=== PATIENT | male | born 1940 | race Caucasian/White ===

== ENCOUNTER 2023-03-21 19:29 | Observation (INO) | payer MEDICARE, SELFPAY ==
--- NOTE | 2023-03-21 19:46 | PC.NURSE ---
Patient arrived to floor via stretcher with ems at 19.45.
[2023-03-21 20:00] VITALS: BP 141/67; PULSE 100; PULSE 104; PULSE 107; RESP 18; TEMP 37; O2SAT 98; O2SAT 99
--- NOTE | 2023-03-21 20:38 | XR_ITS ---
PROCEDURE INFORMATION: Exam: XR Right Toe(s) Exam date and time: 03/21/2023 9:11 PM Age: 83 years old Clinical indication: Pain; Toes; Right; Additional info: Fall with injury TECHNIQUE: Imaging protocol: Radiologic exam of the right toes. Views: Minimum 2 views. COMPARISON: No relevant prior studies available. FINDINGS: Bones/joints: Avulsion fracture of the base of the 1st proximal phalanx. Soft tissues: Normal. IMPRESSION: Avulsion fracture of the base of the 1st proximal phalanx. No additional fracture or dislocation
--- NOTE | 2023-03-21 20:39 | P.HP_ITS ---
History of Present Illness *Admission Date: 03/21/23 *Reason for visit:: Afib new onset *History of present illness: This is a 83yo M with PMHx of IDDM, CHF, CAD s/p CABG, not on blood thinner, HLD, referred from [facility] for evalution of new onset afib with RVR and elevated troponin. Patient alert and oriented, reported he fell at home last night about 10p and was not able to get up until family found him down today. Daughter, at bedside also confirmed history. EMS arrived and took patient to the nearest ER. On route patient was found to be on afib with RVR, patient and family denied previous Hx of that, and his is not on any anticoagulant other than aspirin. Patient also reported generalized weakness, denied LOC, and head trauma. On arrival ER , detected elevated troponin, CK and confirmed afib rhythm. Patient was referred to us for cardiology evaluation. Admitted. [facility] Disclaimer: The information contained in this section may have been updated after the patient was seen, as this information can be updated by other users. Medical History (Updated 03/21/23 @ 21:08 by Ramon Brasher APRN) Diabetes mellitus Hypertension Stroke Surgical History (Updated 03/21/23 @ 21:02 by Ramon Brasher APRN) Hx of CABG Family History (Updated 03/21/23 @ 20:33 by Jacquie Griggs RN) Other Diabetes Heart disease Social History (Updated 03/21/23 @ 20:28 by Jacquie Griggs RN) Smoking Status: Never smoker alcohol intake: never current occupational status: disabled Travel in the last 8 weeks: None Review of Systems Review of Systems Review of systems:: pertinent systems reviewed and negative unless documented below Meds Home Medications and Allergies Home Medications Medication Instructions Recorded Confirmed Type losartan 50 mg-hydrochlorothiazide 12.5 tab PO DAILY 03/21/23 03/21/23 History 12.5 mg tablet metformin 1,000 mg tablet 1,000 mg PO BID 03/21/23 03/21/23 History omeprazole 20 mg capsule,delayed 20 mg PO DAILY 03/21/23 03/21/23 History release potassium chloride 20 mEq 20 meq PO DAILY 03/21/23 03/21/23 History tablet,extended release(part/cryst) simvastatin 40 mg tablet 40 mg PO DAILY 03/21/23 03/21/23 History New Prescriptions to Start Prescriptions: Allergies Allergy/AdvReac Type Severity Reaction Status Date / Time codeine Allergy Verified 03/21/23 20:34 Exam Constitutional Constitutional: mild distress and cooperative *Routine HEENT Exam Head: Present normocephalic and atraumatic Eye: Present EOMI, PERRL and normal accommodation ENT: Present mucous membranes moist *Routine Neck Exam Neck: Present supple, full ROM and trachea midline *Routine Respiratory Exam Respiratory: Present normal respiratory effort, able to speak in complete sentences and symmetric chest movement *Routine Cardiovascular Exam Cardiovascular: Present Normal S1, Normal S2, tachycardia and irregularly irregular *Routine Abdominal Exam Abdominal: Present soft and normoactive bowel sounds; Absent organomegaly *Routine Rectal Exam Rectal:: deferred *Routine Genitalia Exam Genitalia:: deferred *Routine Extremities Exam Extremities: Present edema, full ROM and pulses intact; Absent cyanosis or clubbing *Routine Skin Exam Skin: Present erythema, dry, warm and wounds *Routine Neurological Exam Neurological: Present alert, oriented X3, normal reflexes, moving all extremities and normal speech Routine Psychiatric Exam Psychiatric: Present normal thought process and cooperative H&P: Result Imaging and Cardiology EKG: Status: image reviewed by me and Preliminary report Assessment and Plan *Assessment and plan (1) New onset a-fib: Status: Acute Category: Medical Code(s): I48.91 - Unspecified atrial fibrillation (2) Rhabdomyolysis: Status: Acute Qualifiers: Rhabdomyolysis type: traumatic Encounter type: initial encounter Qualified Code(s): T79.6XXA - Traumatic ischemia of muscle, initial encounter Category: Medical Code(s): M62.82 - Rhabdomyolysis (3) Elevated troponin: Status: Acute Category: Medical Code(s): R79.89 - Other specified abnormal findings of blood chemistry (4) Acute kidney injury: Status: Acute Category: Medical Code(s): N17.9 - Acute kidney failure, unspecified (5) Elevated brain natriuretic peptide (BNP) level: Status: Acute Category: Medical Code(s): R79.89 - Other specified abnormal findings of blood chemistry (6) Fall at home: Status: Acute Qualifiers: Encounter type: initial encounter Qualified Code(s): W19.XXXA - Unspecified fall, initial encounter; Y92.009 - Unspecified place in unspecified non-institutional (private) residence as the place of occurrence of the external cause Category: Medical Code(s): W19.XXXA - Unspecified fall, initial encounter; Y92.009 - Unspecified place in unspecified non-institutional (private) residence as the place of occurrence of the external cause (7) Hx of CABG: Status: Acute Category: Surgical Code(s): Z95.1 - Presence of aortocoronary bypass graft (8) Hypertension: Status: Acute Qualifiers: Hypertension type: unspecified Qualified Code(s): I10 - Essential (primary) hypertension Category: Medical Code(s): I10 - Essential (primary) hypertension (9) Diabetes mellitus: Status: Acute Qualifiers: Diabetes mellitus type: type 2 Diabetes mellitus public service officer insulin use: with retirement use Diabetes mellitus complication status: with other specified complication Qualified Code(s): E11.69 - Type 2 diabetes mellitus with other specified complication; Z79.4 - group home (current) use of insulin Category: Medical Code(s): E11.9 - Type 2 diabetes mellitus without complications Plan 83yo M with PMHx of IDDM, CHF, CAD s/p CABG, not on blood thinner, HLD, referred from [facility] for evalution of new onset afib with RVR and elevated troponin. Patient alert and oriented, reported he fell at home last night about 10p and was not able to get up until family found him down today. Records reviewed from referring facility. abnormal labs are troponin, elevated creatinine, CK, BNP. CT of the head was obtained and does not showed acute intracraneal process, per pier report. After discussion made with Referring attending and cardiology, we were agreed for acceptance. Plans as follow: - New onset Afib: Admit patient for step down on continuos cardiac monitoring Cardiology consult metropolol 5mg IV PRN for HR greater than 145 Repeat: troponin, lactic acid, CMP/ CBC obtain lipid profile Pt/INR EKG reviewed -Rhabdo, secondary to fall and being lying down for a long period of time: Repeat CK and continue monitoring daily NS @75ml gently infusion. Watch for fluid overload - Elevated troponin to rule out ACS: liklely leaking troponin secondary to kidney injury: Continue monitoring monitor HR, BP and rhythm Cardiology on board repeat serial troponin assess for cardiac chest pain. Currently asymptomatic - JASMINA: elevated creatinine. Unknown chronicity. Continue monitoring avoid nephrotoxic meds. Hold metformin monitor renal output monitor and repeat moroning CMP -Elevated BNP: ECHO ordered. - Hx of fall with injury: PT/OT consulted for eval and treat Xray of R great toe fall precaution implemented -Others chronic conditons: IDDM: obtain A1c Accucheck before meals sliding scale diabetic diet HTN, CAD s/p CAGB., HLD: on statin, aspirin, and losartan HTCZ. reconciled Lovenox for DVT ppx. On protonix for gi ppx Full code
[2023-03-21 20:40] VITALS: BMI 32.8
[2023-03-21 21:17] LABS: POC Glucose,Bedside 274 (70-110)
[2023-03-21 21:29] LABS: Hemoglobin A1C 8.3 % (4.0-6.0)
[2023-03-21] MEDS: ENOXAPARIN 40MG/0.4ML SYRINGE 40 MG SQ (21:29)
[2023-03-21] MEDS: 0.9 % SODIUM CHLORIDE 1000ML 1,000 ML 75 ML IV (21:29)
[2023-03-21] MEDS: PANTOPRAZOLE 40MG TABLET 40 MG PO (21:29)
[2023-03-21] MEDS: humaLOG 100 UNITS/ML 3ML VIAL (SSI) SQ (21:29)
[2023-03-21 21:30] LABS: Troponin I 0.26 ng/ml (0.00-0.034)
[2023-03-21 22:00] VITALS: BP 122/68; PULSE 90; RESP 16; O2SAT 97
[2023-03-21 22:42] LABS: Creatine Kinase MB 14.7 ng/ml (0.0-2.03); NT Pro Brain Natriuretic Pep. 1650 pg/mL (0-450)
[2023-03-22] VITALS (9 sets, daily range): BP systolic 104–134; BP diastolic 45–66; PULSE 80–120; RESP 16–20; TEMP 36.5–37; O2SAT 95–100; BMI 32.9
[2023-03-22 00:23] LABS: Reflex Lactic Add Lactic Reflex
[2023-03-22 00:38] LABS: Lactic Acid Follow Up (RFLX 1) 3.5 mmol/L (0.7-2.1)
[2023-03-22 00:50] LABS: Troponin I 0.24 ng/ml (0.00-0.034)
[2023-03-22 02:23] LABS: Reflex Lactic (2 hrs) Add Lactic Reflex
[2023-03-22 02:50] LABS: Lactic Acid Follow up (RFLX 2) 2.4 mmol/L (0.7-2.1)
[2023-03-22] MEDS: humaLOG 100 UNITS/ML 3ML VIAL (SSI) SQ ×4 (05:34→21:48)
[2023-03-22 06:23] LABS: POC Glucose,Bedside 256 (70-110)
[2023-03-22 07:29] LABS: Chloride 107 mmol/L (98-107); Potassium 3.4 mmoL/L (3.5-5.1); Sodium 136 mmol/L (136-145)
[2023-03-22 07:31] LABS: Alanine Aminotransferase 50 U/L (12-78); Alkaline Phosphatase 102 U/L (38-126); Anion Gap 8.4 mEq/L (5-15); Aspartate Amino Transferase 236 U/L (17-59); Blood Urea Nitrogen 22 mg/dl (9-20); Carbon Dioxide 24 mmol/L (22.0-30.0); Creatinine Clearance Estimated 57 mL/min (50-200); Estimated Glomerular Filt Rate 53 ml/min (>60); GFR (African American) 64 ML/MIN (>60)
[2023-03-22 07:32] LABS: Albumin Level 2.8 g/dl (3.5-5.0); Albumin/Globulin Ratio 0.8 (1.1-1.8); Calcium 8.4 mg/dl (8.4-10.2); Chol/HDL Ratio 3.3 (1-3.5); Cholesterol 128 mg/dl (140-200); Globulin 3.3 g/dL (1.3-3.2); Glucose 229 mg/dl (74-100); HDL Cholesterol 39 mg/dl (40-60); Magnesium 1.7 mg/dl (1.6-2.3); Phosphorous 2.5 mg/dl (2.5-4.5); Total Protein,Serum 6.1 g/dl (6.3-8.2); Triglycerides 88 mg/dl (30-150); VLDL Cholesterol 18 mg/dL (0-40)
[2023-03-22 07:33] LABS: INR 1.26 (0.9-1.1); Prothrombin Time 13.4 seconds (10.1-12.5)
[2023-03-22 07:35] LABS: Basophils # 0.1 K/mm3 (0-0.2); Basophils % 0.8 % (0.1-2.0); Eosinophils # 0.1 K/mm3 (0.0-0.4); Eosinophils % 1.4 % (0.1-12.0); Hematocrit 29.9 % (42.0-52.0); Hemoglobin 9.8 g/dL (14.1-18.0); Lymphocytes # 1.4 K/mm3 (0.7-4.5); Lymphocytes % 22.1 % (10-50); Mean Corpuscular HGB Conc 32.8 g/dL (31.8-35.4); Mean Corpuscular Hemoglobin 30.1 pg (27.0-31.2); Mean Corpuscular Volume 91.7 fl (80-94); Mean Platelet Volume 10.3 fl (7.4-10.4); Monocytes # 0.5 K/mm3 (0.1-1.0); Monocytes % 7.3 % (1.7-9.3); Neutrophils # 4.2 K/mm3 (1.8-7.8); Neutrophils % 68.4 % (37.0-80.0); Platelet Count 84 K/mm3 (142-424); Red Blood Count 3.26 M/mm3 (4.60-6.20); White Blood Count 6.2 K/mm3 (4.8-10.8)
[2023-03-22 07:43] LABS: Direct LDL Cholesterol 60.28 mg/dL (100-129)
--- NOTE | 2023-03-22 08:14 | HMH.PHAINT1 ---
Pharmacy Intervention Comments: MEDICATION RECONCILIATION COMPLETED ON PATIENT USING EXTERNAL FILL HISTORY FROM PHARMACY. -JIMBO SANCHEZ, TOPHERD
[2023-03-22] MEDS: 0.9 % SODIUM CHLORIDE 1000ML 1,000 ML 75 ML IV (09:12)
[2023-03-22] MEDS: ASPIRIN 81MG CHEWABLE TABLET 81 MG PO (09:12)
[2023-03-22] MEDS: ENOXAPARIN 40MG/0.4ML SYRINGE 40 MG SQ (09:12)
--- NOTE | 2023-03-22 15:23 | HMH.PTEV ---
Physical Therapy Evaluation Rehab PT IP Evaluation Start: 03/21/23 20:37 Freq: ONCE Status: Active Protocol: Document 03/22/23 15:12 PDESEROUX (Rec: 03/22/23 15:23 [email or web address] [id number]) Subjective/History History History Pt. is a 83 year old male who presents to [facility] 2nd floor Inpatient setting for the inital Physical Therapy Inpatient evaluation this date (03/22/23) secondary to having a fall at home. Pt. reports he fell at home yesterday and did not have the strength to IND. get himself back up. Pt. reports his family found him on the floor the next day and assisted pt. up off the floor. Pt. reports he lives alone in a 1-story trailer. Pt. reports IND. w/ ADLs, but receives check ups daily by his family members. Pt. vocalizes that his Grandaughter and her family had agreed to move pt. into their home to assist pt. w/ ADLs at this time secondary to generalized weakness, pt. vocalized he was okay with this plan. PMH includes CHF, IDDM, CAD s/p CABG, and Hyperlipidemia. Pt.'s family members(x3) were present at the time of the Inpatient Physical Therapy evaluation this date. Subjective Subjective Pt. was R-sidelying in hospital bed upon being verbal consent to enter into pt.'s hospital room. Pt. reports, I can get up if you want me to. New diagnosis of cancer in past 12 No months? Rehab PT IP Eval Objective Appearance Patient Behavior Appropriate,Cooperative Patient Orientation Person,Place,Birthday, Situation Difficulty following instructions none Speech Pattern Clear,Appropriate,Coherent Ambulation Patient Able to Ambulate Yes Ambulation Observation IP General Gait Pattern Observation Wide Based Gait,Shuffling Step Ambulation Distance (feet) 25 Ambulation Assistive Device Rolling Walker Ambulation Ability Contact Guard/Hand Hold Balance Ability to Arise Able, uses arms to help Sitting Balance Steady, safe Standing Balance Narrow stance w/o support Dynamic Sitting Balance Ability Good Dynamic Standing Balance Ability Good Transfers Bed Transfer Ability Contact Guard/Hand Hold Chair Transfer Ability Contact Guard/Hand Hold Sit to Stand Bed Transfer Ability Contact Guard/Hand Hold Sit to Stand Chair Transfer Ability Contact Guard/Hand Hold ROM RLE PT ROM Status WFL LLE PT ROM Status WFL MMT RLE PT MMT WFL LLE PT MMT WFL Rehab PT IP prob,goals,plan Problems Date of Evaluation: 03/22/23 PT IP Problems Gait,Balance,Self care,Safety Rehab Potential Rehab Potential Good Equipment Needs Assistive Devices Rolling / Wheeled Walker Plan PT Intervention Plan Gait,Balance,Self care,Safety, Therapeutic Exercise PT Plan Frequency Daily Duration LOS Discharge Goals Bed Transfer Ability Contact Guard/Hand Hold Sit to Stand Chair Transfer Ability Contact Guard/Hand Hold Ambulation Assistive Device Rolling Walker Ambulation Distance (feet) 25 Discharge Plan PT Discharge Plan Upon D/C, once medically stable per MD, pt. is appropriate to return to family's([facility]) residence w/ medical equipment including FWW w/ the assistance of family w/ ADLs. Pt. would further benefit from Home Health Physical Therapy to improve muscle strength and endurance to improve current quality of life and reduce the risk of having another fall. Eval Complexity Eval Charge Codes 01463 - Low Complexity PHYSICIAN CERTIFICATION: I certify the specified therapy services for David Martinez are required, authorized, and reviewed every 30 days.
--- NOTE | 2023-03-22 15:40 | HMH.PTEV ---
Physical Therapy Evaluation Rehab PT IP Evaluation Start: 03/21/23 20:37 Freq: ONCE Status: Active Protocol: Document 03/22/23 15:12 PDESEROUX (Rec: 03/22/23 15:23 PDESEROUX [id number]) Subjective/History History History Pt. is a 83 year old male who presents to [facility] 2nd floor Inpatient setting for the inital Physical Therapy Inpatient evaluation this date (03/22/23) secondary to having a fall at home. Pt. reports he fell at home yesterday and did not have the strength to IND. get himself back up. Pt. reports his family found him on the floor the next day and assisted pt. up off the floor. Pt. reports he lives alone in a 1-story trailer. Pt. reports IND. w/ ADLs, but receives check ups daily by his family members. Pt. vocalizes that his Grandaughter and her family had agreed to move pt. into their home to assist pt. w/ ADLs at this time secondary to generalized weakness, pt. vocalized he was okay with this plan. PMH includes CHF, IDDM, CAD s/p CABG, and Hyperlipidemia. Pt.'s family members(x3) were present at the time of the Inpatient Physical Therapy evaluation this date. Subjective Subjective Pt. was R-sidelying in hospital bed upon being verbal consent to enter into pt.'s hospital room. Pt. reports, I can get up if you want me to. New diagnosis of cancer in past 12 No months? Rehab PT IP Eval Objective Appearance Patient Behavior Appropriate,Cooperative Patient Orientation Person,Place,Birthday, Situation Difficulty following instructions none Speech Pattern Clear,Appropriate,Coherent Ambulation Patient Able to Ambulate Yes Ambulation Observation IP General Gait Pattern Observation Wide Based Gait,Shuffling Step Ambulation Distance (feet) 25 Ambulation Assistive Device Rolling Walker Ambulation Ability Contact Guard/Hand Hold Balance Ability to Arise Able, uses arms to help Sitting Balance Steady, safe Standing Balance Narrow stance w/o support Dynamic Sitting Balance Ability Good Dynamic Standing Balance Ability Good Transfers Bed Transfer Ability Contact Guard/Hand Hold Chair Transfer Ability Contact Guard/Hand Hold Sit to Stand Bed Transfer Ability Contact Guard/Hand Hold Sit to Stand Chair Transfer Ability Contact Guard/Hand Hold ROM RLE PT ROM Status WFL LLE PT ROM Status WFL MMT RLE PT MMT WFL LLE PT MMT WFL Rehab PT IP prob,goals,plan Problems Date of Evaluation: 03/22/23 PT IP Problems Gait,Balance,Self care,Safety Rehab Potential Rehab Potential Innapropriate for Skilled Therapy Equipment Needs Assistive Devices Rolling / Wheeled Walker Plan PT Intervention Plan Gait,Balance,Self care,Safety, Therapeutic Exercise PT Plan Frequency Daily Duration LOS Discharge Goals Bed Transfer Ability Contact Guard/Hand Hold Sit to Stand Chair Transfer Ability Contact Guard/Hand Hold Ambulation Assistive Device Rolling Walker Ambulation Distance (feet) 25 Discharge Plan PT Discharge Plan Upon D/C, once medically stable per MD, pt. is appropriate to return to family's([facility]) residence w/ medical equipment including FWW w/ the assistance of family w/ ADLs. Pt. would further benefit from Home Health Physical Therapy to improve muscle strength and endurance to improve current quality of life and reduce the risk of having another fall. Eval Complexity Eval Charge Codes 00793 - Low Complexity PHYSICIAN CERTIFICATION: I certify the specified therapy services for David Martinez are required, authorized, and reviewed every 30 days.
--- NOTE | 2023-03-22 15:48 | EXP.PN ---
Subjective *Date: 03/22/23 *Time: 15:48 Interval history: arti was seen and evaluated at the bedside. denies chest pain, shortness of breath, nausea, vomiting, abdominal pain. Patient does not have any complaints at this time. feels better overall Exam Data for Last 24 hours Vital signs and Labs for Last 24 Hours: Temp Pulse Resp BP Pulse Ox O2 Del Method 98.2 F 95 H 20 129/61 99 Room Air 03/22/23 12:00 03/22/23 12:00 03/22/23 12:00 03/22/23 12:00 03/22/23 12:00 03/22/23 15:00 Laboratory Results - last 24 hr 03/21/23 20:50: Hemoglobin A1c 8.3 H, Lactate 4.0 H, CK-MB (CK-2) 14.7 H*, Troponin I 0.26 H, NT-Pro-B Natriuret Pep 1650 H 03/21/23 21:03: POC Glucose 274 H 03/22/23 00:23: Lactate 3.5 H 03/22/23 00:25: Troponin I 0.24 H 03/22/23 02:35: Lactate 2.4 H 03/22/23 05:29: POC Glucose 256 H 03/22/23 06:55: WBC 6.2, RBC 3.26 L, Hgb 9.8 L, Hct 29.9 L, MCV 91.7, MCH 30.1, MCHC 32.8, RDW 15.0, Plt Count 84 L, MPV 10.3, Neut % (Auto) 68.4, Lymph % (Auto) 22.1, Davie % (Auto) 7.3, Eos % (Auto) 1.4, Baso % (Auto) 0.8, Neut # (Auto) 4.2, Lymph # (Auto) 1.4, Davie # (Auto) 0.5, Eos # (Auto) 0.1, Baso # (Auto) 0.1, PT 13.4 H, INR 1.26 H, Sodium 136, Potassium 3.4 L, Chloride 107, Carbon Dioxide 24, Anion Gap 8.4, BUN 22 H, Creatinine 1.30 H, Estimated Creat Clear 57, Estimated GFR 53 L, Est GFR ( Amer) 64, Glucose 229 H, Calcium 8.4, Phosphorus 2.5, Magnesium 1.7, Total Bilirubin 3.0 H, AST 236 H, ALT 50, Alkaline Phosphatase 102, Total Protein 6.1 L, Albumin 2.8 L, Globulin 3.3 H, Albumin/Globulin Ratio 0.8 L, Triglycerides 88, Cholesterol 128 L, LDL Cholesterol Direct 60.28 L, VLDL Cholesterol 18, HDL Cholesterol 39 L, Cholesterol/HDL Ratio 3.3 I & O for Last 24 hours: Intake & Output 03/19/23 03/20/23 03/21/23 03/22/23 23:59 23:59 23:59 23:59 Intake Total 2277 / 2277 Output Total 400 / 400 Balance 1877 / 1877 Weight 95.118 kg 95.135 kg Constitutional Constitutional: no acute distress *Routine HEENT Exam Head: Present normocephalic Eye: Present EOMI and PERRL ENT: Present mucous membranes moist *Routine Neck Exam Neck: Present supple; Absent lymphadenopathy *Routine Respiratory Exam Respiratory: Present CTA bilaterally *Routine Cardiovascular Exam Cardiovascular: Present RRR and irregular rhythm *Routine Abdominal Exam Abdominal: Present soft and normoactive bowel sounds; Absent tenderness *Routine Extremities Exam Extremities: Absent cyanosis, clubbing or edema *Routine Skin Exam Skin: Present warm; Absent rash *Routine Neurological Exam Neurological: Present alert and oriented X3 Assessment and Plan *Assessment and plan (1) New onset a-fib: Status: Acute Category: Medical Code(s): I48.91 - Unspecified atrial fibrillation (2) Rhabdomyolysis: Status: Acute Qualifiers: Rhabdomyolysis type: traumatic Encounter type: initial encounter Qualified Code(s): T79.6XXA - Traumatic ischemia of muscle, initial encounter Category: Medical Code(s): M62.82 - Rhabdomyolysis (3) Elevated troponin: Status: Acute Category: Medical Code(s): R79.89 - Other specified abnormal findings of blood chemistry (4) Acute kidney injury: Status: Acute Category: Medical Code(s): N17.9 - Acute kidney failure, unspecified (5) Elevated brain natriuretic peptide (BNP) level: Status: Acute Category: Medical Code(s): R79.89 - Other specified abnormal findings of blood chemistry (6) Fall at home: Status: Acute Qualifiers: Encounter type: initial encounter Qualified Code(s): W19.XXXA - Unspecified fall, initial encounter; Y92.009 - Unspecified place in unspecified non-institutional (private) residence as the place of occurrence of the external cause Category: Medical Code(s): W19.XXXA - Unspecified fall, initial encounter; Y92.009 - Unspecified place in unspecified non-institutional (private) residence as the place of occurrence of the external cause (7) Hx of CABG: Status: Acute Category: Surgical Code(s): Z95.1 - Presence of aortocoronary bypass graft (8) Hypertension: Status: Acute Qualifiers: Hypertension type: unspecified Qualified Code(s): I10 - Essential (primary) hypertension Category: Medical Code(s): I10 - Essential (primary) hypertension (9) Diabetes mellitus: Status: Acute Qualifiers: Diabetes mellitus type: type 2 Diabetes mellitus superintendent marine oil terminal insulin use: with superintendent marine oil terminal use Diabetes mellitus complication status: with other specified complication Qualified Code(s): E11.69 - Type 2 diabetes mellitus with other specified complication; Z79.4 - superintendent marine oil terminal (current) use of insulin Category: Medical Code(s): E11.9 - Type 2 diabetes mellitus without complications Plan 83yo M with PMHx of IDDM, CHF, CAD s/p CABG, not on blood thinner, HLD, referred from [facility] for evalution of new onset afib with RVR and elevated troponin. Patient alert and oriented, reported he fell at home last night about 10p and was not able to get up until family found him down today. Records reviewed from referring facility. abnormal labs are troponin, elevated creatinine, CK, BNP. CT of the head was obtained and does not showed acute intracraneal process, per pier report. After discussion made with Referring attending and cardiology, we were agreed for acceptance. Plans as follow: - New onset Afib: Cardiology consult - pending metropolol 5mg IV PRN for HR greater than 145 monitor troponin, lactic acid, CMP/ CBC obtain lipid profile Pt/INR started on 2.5mg PO eliquis -Rhabdo, secondary to fall and being lying down for a long period of time: Repeat CK and continue monitoring daily NS @75ml gently infusion. Watch for fluid overload - Elevated troponin to rule out ACS: likely leaking troponin secondary to kidney injury: Continue monitoring monitor HR, BP and rhythm Cardiology on board repeat serial troponin assess for cardiac chest pain. Currently asymptomatic - JASMINA: elevated creatinine. Continue monitoring avoid nephrotoxic meds. Hold metformin monitor renal output monitor and repeat moroning CMP -Elevated BNP: ECHO ordered. - Hx of fall with injury: PT/OT consulted for eval and treat Xray of R great toe fall precaution implemented -Others chronic conditons: IDDM: obtain A1c Accucheck before meals sliding scale diabetic diet HTN, CAD s/p CAGB., HLD: on statin, aspirin, and losartan HTCZ. reconciled Lovenox for DVT ppx. On protonix for gi ppx Full code
[2023-03-22 16:43] LABS: POC Glucose,Bedside 345 (70-110)
[2023-03-22 20:43] LABS: POC Glucose,Bedside 366 (70-110)
[2023-03-22] MEDS: APIXABAN 5MG TABLET 2.5 MG PO (21:47)
[2023-03-22] MEDS: PANTOPRAZOLE 40MG TABLET 40 MG PO (21:47)
[2023-03-23] VITALS: BP 132/59; PULSE 109; PULSE 99; RESP 18; TEMP 36.8; O2SAT 98
[2023-03-23 04:00] VITALS: BP 129/73; PULSE 100; PULSE 95; RESP 18; TEMP 36.7; O2SAT 99; BMI 32.9
--- NOTE | 2023-03-23 05:04 | PC.NURSE ---
Patient has been awake most the night with periodic resting in chair, states Im not too tired. Patient has been up to chair most the night and requested coffee and water. Patient has walked to bathroom via walker, gait belt and one assist. Patient remains to be in A-fib on the monitor but rate controlled. lungs are clear throughout. BS active X4. Small bruise on left great toe from fall at home, no complaints of pain. No acute changes noted.
[2023-03-23 05:55] LABS: POC Glucose,Bedside 276 (70-110)
[2023-03-23] MEDS: humaLOG 100 UNITS/ML 3ML VIAL (SSI) SQ ×4 (06:10→20:04)
[2023-03-23 06:13] LABS: POC Glucose,Bedside 192 (70-110)
[2023-03-23 08:00] VITALS: BP 109/48; PULSE 100; PULSE 95; RESP 19; TEMP 36.8; O2SAT 97
[2023-03-23] MEDS: ASPIRIN 81MG CHEWABLE TABLET 81 MG PO (08:14)
[2023-03-23] MEDS: APIXABAN 5MG TABLET 5 MG PO ×2 (08:15→20:04)
[2023-03-23 10:59] LABS: Basophils # 0.1 K/mm3 (0-0.2); Basophils % 0.9 % (0.1-2.0); Eosinophils # 0.2 K/mm3 (0.0-0.4); Eosinophils % 3.5 % (0.1-12.0); Hematocrit 27.8 % (42.0-52.0); Hemoglobin 9.2 g/dL (14.1-18.0); Lymphocytes # 1.3 K/mm3 (0.7-4.5); Lymphocytes % 21.9 % (10-50); Mean Corpuscular HGB Conc 33.2 g/dL (31.8-35.4); Mean Corpuscular Hemoglobin 30.5 pg (27.0-31.2); Mean Corpuscular Volume 91.9 fl (80-94); Mean Platelet Volume 10.6 fl (7.4-10.4); Monocytes # 0.4 K/mm3 (0.1-1.0); Monocytes % 6.7 % (1.7-9.3); Neutrophils # 3.9 K/mm3 (1.8-7.8); Neutrophils % 67.1 % (37.0-80.0); Platelet Count 76 K/mm3 (142-424); Red Blood Count 3.03 M/mm3 (4.60-6.20); White Blood Count 5.7 K/mm3 (4.8-10.8)
[2023-03-23 11:06] LABS: Chloride 103 mmol/L (98-107); Potassium 3.7 mmoL/L (3.5-5.1); Sodium 129 mmol/L (136-145)
[2023-03-23 11:09] LABS: Anion Gap 8.7 mEq/L (5-15); Blood Urea Nitrogen 20 mg/dl (9-20); Calcium 7.8 mg/dl (8.4-10.2); Carbon Dioxide 21 mmol/L (22.0-30.0); Creatinine Clearance Estimated 57 mL/min (50-200); Estimated Glomerular Filt Rate 53 ml/min (>60); GFR (African American) 64 ML/MIN (>60); Glucose 313 mg/dl (74-100)
[2023-03-23 12:00] VITALS: BP 131/83; PULSE 86; PULSE 90; RESP 19; TEMP 36.4; O2SAT 98
[2023-03-23 12:05] LABS: POC Glucose,Bedside 317 (70-110)
--- NOTE | 2023-03-23 15:05 | P.PN_ITS ---
Subjective *Date: 03/23/23 *Time: 15:05 Interval history: seen and evaluated at the bedside, she is lying in bed. denies chest pain, shortness of breath, nausea, vomiting, abdominal pain. Patient does not have any complaints at this time. feels better overall Exam Data for Last 24 hours Vital signs and Labs for Last 24 Hours: Temp Pulse Resp BP Pulse Ox O2 Del Method 97.5 F L 86 19 131/83 98 Room Air 03/23/23 12:00 03/23/23 12:00 03/23/23 12:00 03/23/23 12:00 03/23/23 12:00 03/23/23 12:15 Laboratory Results - last 24 hr 03/22/23 10:50: POC Glucose 276 H 03/22/23 16:22: POC Glucose 345 H* 03/22/23 20:35: POC Glucose 366 H* 03/23/23 06:05: POC Glucose 192 H 03/23/23 10:52: WBC 5.7, RBC 3.03 L, Hgb 9.2 L, Hct 27.8 L, MCV 91.9, MCH 30.5, MCHC 33.2, RDW 15.0, Plt Count 76 L, MPV 10.6 H, Neut % (Auto) 67.1, Lymph % (Auto) 21.9, [place] % (Auto) 6.7, Eos % (Auto) 3.5, Baso % (Auto) 0.9, Neut # (Auto) 3.9, Lymph # (Auto) 1.3, [place] # (Auto) 0.4, Eos # (Auto) 0.2, Baso # (Auto) 0.1, Sodium 129 L, Potassium 3.7, Chloride 103, Carbon Dioxide 21 L, Anion Gap 8.7, BUN 20, Creatinine 1.30 H, Estimated Creat Clear 57, Estimated GF R 53 L, Est GFR ( Amer) 64, Glucose 313 H, Calcium 7.8 L 03/23/23 11:49: POC Glucose 317 H* I & O for Last 24 hours: Intake & Output 03/20/23 03/21/23 03/22/23 03/23/23 23:59 23:59 23:59 23:59 Intake Total 3184 / 3874 1260 / 1260 Output Total 550 / 700 575 / 575 Balance 2634 / 3174 685 / 685 Weight 95.118 kg 95.135 kg 95.138 kg Constitutional Constitutional: no acute distress *Routine HEENT Exam Head: Present normocephalic Eye: Present EOMI and PERRL ENT: Present mucous membranes moist *Routine Neck Exam Neck: Present supple; Absent lymphadenopathy *Routine Respiratory Exam Respiratory: Present CTA bilaterally *Routine Cardiovascular Exam Cardiovascular: Present RRR and irregular rhythm *Routine Abdominal Exam Abdominal: Present soft and normoactive bowel sounds; Absent tenderness *Routine Extremities Exam Extremities: Absent cyanosis, clubbing or edema *Routine Skin Exam Skin: Present warm; Absent rash *Routine Neurological Exam Neurological: Present alert and oriented X3 Assessment and Plan *Assessment and plan (1) New onset a-fib: Status: Acute Category: Medical Code(s): I48.91 - Unspecified atrial fibrillation (2) Rhabdomyolysis: Status: Acute Qualifiers: Rhabdomyolysis type: traumatic Encounter type: initial encounter Qualified Code(s): T79.6XXA - Traumatic ischemia of muscle, initial encounter Category: Medical Code(s): M62.82 - Rhabdomyolysis (3) Elevated troponin: Status: Acute Category: Medical Code(s): R79.89 - Other specified abnormal findings of blood chemistry (4) Acute kidney injury: Status: Acute Category: Medical Code(s): N17.9 - Acute kidney failure, unspecified (5) Elevated brain natriuretic peptide (BNP) level: Status: Acute Category: Medical Code(s): R79.89 - Other specified abnormal findings of blood chemistry (6) Fall at home: Status: Acute Qualifiers: Encounter type: initial encounter Qualified Code(s): W19.XXXA - Unspecified fall, initial encounter; Y92.009 - Unspecified place in unspecified non-institutional (private) residence as the place of occurrence of the external cause Category: Medical Code(s): W19.XXXA - Unspecified fall, initial encounter; Y92.009 - Unspecified place in unspecified non-institutional (private) residence as the place of occurrence of the external cause (7) Hx of CABG: Status: Acute Category: Surgical Code(s): Z95.1 - Presence of aortocoronary bypass graft (8) Hypertension: Status: Acute Qualifiers: Hypertension type: unspecified Qualified Code(s): I10 - Essential (primary) hypertension Category: Medical Code(s): I10 - Essential (primary) hypertension (9) Diabetes mellitus: Status: Acute Qualifiers: Diabetes mellitus type: type 2 Diabetes mellitus 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 Patient alert and oriented, reported he fell at home last night about 10p and was not able to get up until family found him down today. Records reviewed from referring facility. abnormal labs are troponin, elevated creatinine, CK, BNP. CT of the head was obtained and does not showed acute intracraneal process, per pier report. After discussion made with Referring attending and cardiology, we were agreed for acceptance. Plans as follow: New onset Afib: Cardiology consult - pending metropolol 5mg IV PRN for HR greater than 145 started in Eliquis check echocardiogram Rhabdomyolysis, secondary to fall and being lying down for a long period of time: Repeat CK and continue monitoring daily NS @75ml gently infusion. Watch for fluid overload Avulsion fracture of the base of the 1st proximal phalanx. No additional fracture or dislocation consult ortho - Elevated troponin to rule out ACS: likely leaking troponin secondary to kidney injury: Continue monitoring monitor HR, BP and rhythm Cardiology on board repeat serial troponin assess for cardiac chest pain. Currently asymptomatic - JASMINA: stable elevated creatinine. Continue monitoring avoid nephrotoxic meds. Hold metformin monitor renal output monitor and repeat [place] CMP -Elevated BNP: ECHO ordered. - Hx of fall with injury: PT/OT consulted for eval and treat Xray of R great toe fall precaution implemented -Others chronic conditons: IDDM: obtain A1c Accucheck before meals sliding scale diabetic diet HTN, CAD s/p CAGB., HLD: on statin, aspirin, and losartan HTCZ. reconciled Lovenox for DVT ppx. On protonix for gi ppx Full code
[2023-03-23 15:42] LABS: Basophils % 0.5 % (0.1-2.0); Eosinophils # 0.2 K/mm3 (0.0-0.4); Eosinophils % 3.2 % (0.1-12.0); Hematocrit 27.3 % (42.0-52.0); Lymphocytes # 1.1 K/mm3 (0.7-4.5); Lymphocytes % 22.1 % (10-50); Mean Corpuscular Hemoglobin 30.6 pg (27.0-31.2); Mean Corpuscular Volume 92.7 fl (80-94); Mean Platelet Volume 10.3 fl (7.4-10.4); Monocytes # 0.4 K/mm3 (0.1-1.0); Monocytes % 6.7 % (1.7-9.3); Neutrophils # 3.5 K/mm3 (1.8-7.8); Neutrophils % 67.6 % (37.0-80.0); Platelet Count 81 K/mm3 (142-424); Red Blood Count 2.95 M/mm3 (4.60-6.20); Red Cell Distribution Width 15.1 % (11.5-17.5); White Blood Count 5.2 K/mm3 (4.8-10.8)
[2023-03-23 15:44] LABS: Chloride 103 mmol/L (98-107); Potassium 3.7 mmoL/L (3.5-5.1); Sodium 128 mmol/L (136-145)
[2023-03-23 15:47] LABS: Anion Gap 7.7 mEq/L (5-15); Blood Urea Nitrogen 20 mg/dl (9-20); Calcium 7.6 mg/dl (8.4-10.2); Carbon Dioxide 21 mmol/L (22.0-30.0); Creatinine Clearance Estimated 57 mL/min (50-200); Estimated Glomerular Filt Rate 53 ml/min (>60); GFR (African American) 64 ML/MIN (>60); Glucose 381 mg/dl (74-100)
[2023-03-23 16:00] VITALS: BP 139/71; PULSE 90; RESP 18; TEMP 36.6; O2SAT 100
[2023-03-23 16:00] LABS: Creatine Kinase 2920 U/L (55-170)
[2023-03-23 16:47] LABS: POC Glucose,Bedside 388 (70-110)
--- NOTE | 2023-03-23 18:28 | PC.NURSE ---
AFIB ON TELE. AMBULATES IN ROOM WITH ONE ASSIST AND WALKER TO BATHROOM. HAS RESTED FOR MOST OF SHIFT. STATES HE DID NOT SLEEP WELL LAST NIGHT.
[2023-03-23 20:00] VITALS: BP 107/52; PULSE 80; PULSE 93; RESP 18; TEMP 36.8; O2SAT 99
[2023-03-23] MEDS: PRAVASTATIN 40MG TAB 80 MG PO (20:03)
[2023-03-23] MEDS: PANTOPRAZOLE 40MG TABLET 40 MG PO (20:04)
[2023-03-23 20:59] LABS: POC Glucose,Bedside 333 (70-110)
[2023-03-24] VITALS: BP 121/54; PULSE 90; PULSE 98; RESP 18; TEMP 37.3; O2SAT 99
[2023-03-24] MEDS: 0.9 % SODIUM CHLORIDE 1000ML 1,000 ML 75 ML IV (02:53)
[2023-03-24 04:00] VITALS: BP 123/71; PULSE 120; PULSE 97; RESP 18; TEMP 36.7; O2SAT 99; BMI 32.9
[2023-03-24] MEDS: humaLOG 100 UNITS/ML 3ML VIAL (SSI) SQ ×2 (05:16→11:13)
--- NOTE | 2023-03-24 05:22 | PC.NURSE ---
Patient has had a decent night tonight. Has slept very little though. Has been up and down to the bathroom through the night and has been uncomfortable in the bed so has been up and down to the chair. Patient did develop a cough through the night. Has not been able to get anything up with the cough. Patient still remains on RA. Patient is unstable with the walker at times when transferring RN has to remain the patient to keep hips in between the walker. No other issues
[2023-03-24 05:27] LABS: POC Glucose,Bedside 344 (70-110)
[2023-03-24 06:55] LABS: Basophils % 0.5 % (0.1-2.0); Eosinophils # 0.2 K/mm3 (0.0-0.4); Eosinophils % 4.3 % (0.1-12.0); Hemoglobin 9.4 g/dL (14.1-18.0); Lymphocytes # 1.1 K/mm3 (0.7-4.5); Lymphocytes % 22.2 % (10-50); Mean Corpuscular HGB Conc 32.8 g/dL (31.8-35.4); Mean Corpuscular Volume 94.3 fl (80-94); Monocytes # 0.4 K/mm3 (0.1-1.0); Monocytes % 8.1 % (1.7-9.3); Neutrophils # 3.2 K/mm3 (1.8-7.8); Neutrophils % 64.9 % (37.0-80.0); Platelet Count 89 K/mm3 (142-424); Red Blood Count 3.04 M/mm3 (4.60-6.20); Red Cell Distribution Width 15.3 % (11.5-17.5)
[2023-03-24 07:03] LABS: Chloride 106 mmol/L (98-107); Potassium 3.4 mmoL/L (3.5-5.1); Sodium 131 mmol/L (136-145)
[2023-03-24 07:05] LABS: Blood Urea Nitrogen 17 mg/dl (9-20); Creatinine Clearance Estimated 62 mL/min (50-200); Estimated Glomerular Filt Rate 58 ml/min (>60); GFR (African American) 70 ML/MIN (>60)
[2023-03-24 07:06] LABS: Anion Gap 7.4 mEq/L (5-15); Calcium 7.6 mg/dl (8.4-10.2); Carbon Dioxide 21 mmol/L (22.0-30.0); Creatine Kinase 1474 U/L (55-170); Glucose 326 mg/dl (74-100)
[2023-03-24 07:12] LABS: Hematocrit 28.7 % (42.0-52.0)
[2023-03-24 08:00] VITALS: BP 142/71; PULSE 90; PULSE 91; RESP 19; TEMP 36.5; O2SAT 99
[2023-03-24] MEDS: ASPIRIN 81MG CHEWABLE TABLET 81 MG PO (08:36)
[2023-03-24] MEDS: APIXABAN 5MG TABLET 5 MG PO (08:36)
[2023-03-24] MEDS: INSULIN GLARGINE 100 UNITS/ML 3ML FLEXPEN 10 UNIT SQ (08:38)
--- NOTE | 2023-03-24 08:54 | EXP.POD.CONS ---
History of Present Illness *Admission Date: 03/21/23 *History of present illness: This is a 83yo M with PMHx of IDDM, CHF, CAD s/p CABG, not on blood thinner, HLD, referred from [facility] for evalution of new onset afib with RVR and elevated troponin. Patient alert and oriented, reported he fell at home last night about 10p and was not able to get up until family found him down today. Daughter, at bedside also confirmed history. EMS arrived and took patient to the nearest ER. On route patient was found to be on afib with RVR, patient and family denied previous Hx of that, and his is not on any anticoagulant other than aspirin. Patient also reported generalized weakness, denied LOC, and head trauma. On arrival ER , detected elevated troponin, CK and confirmed afib rhythm. Patient was referred to us for cardiology evaluation. Admitted. Podiatry consult: Consulted for right great toe proximal phalanx nondisplaced fracture. New to the podiatry practice, diabetic male. Family/niece at bedside. Explained the nature of the nondisplaced fracture. No surgery or podiatry intervention warranted at this time. Patient reports he is ambulatory and was able to get up with PT over the weekend. Denies pain to the right foot. [facility] Disclaimer: The information contained in this section may have been updated after the patient was seen, as this information can be updated by other users. Medical History (Updated 03/24/23 @ 09:07 by Laurel Cuellar DPM) Diabetes mellitus Hypertension Stroke Surgical History (Updated 03/21/23 @ 21:02 by Ramon Brasher APRN) Hx of CABG Family History (Updated 03/21/23 @ 20:33 by Jacquie Griggs RN) Diabetes Heart disease Social History (Updated 03/21/23 @ 20:28 by Jacquie Griggs RN) Smoking Status: Never smoker alcohol intake: never current occupational status: disabled Travel in the last 8 weeks: None Review of Systems Review of Systems Review of systems:: pertinent systems reviewed and negative unless documented below Constitutional Constitutional: Reports system reviewed and no additional complaints, except as documented Eyes Eyes: Reports system reviewed and no additional complaints, except as documented ENT Ears, Nose, Mouth, and Throat: Reports system reviewed and no additional complaints, except as documented and Reports disequilibrium *Cardiovascular Cardiovascular: Reports system reviewed and no additional complaints, except as documented *Respiratory Respiratory: Reports system reviewed and no additional complaints, except as documented *Gastrointestinal Gastrointestinal: Reports system reviewed and no additional complaints, except as documented *Genitourinary Genitourinary: Reports system reviewed and no additional complaints, except as documented *Musculoskeletal Musculoskeletal: Reports system reviewed and no additional complaints, except as documented, Reports limited range of motion, Reports muscle cramps and Reports muscle weakness Integumentary/Breasts Skin/Breast: Reports system reviewed and no additional complaints, except as documented and Reports nail changes *Neurologic Neurologic: Reports system reviewed and no additional complaints, except as documented and Reports disequilibrium Psychiatric Psychiatric: Reports system reviewed and no additional complaints, except as documented Endocrine Endocrine: Reports system reviewed and no additional complaints, except as documented Hematologic/Lymphatic Hematologic/Lymphatic: Reports system reviewed and no additional complaints, except as documented Meds Home Medications and Allergies Home Medications Medication Instructions Recorded Confirmed Type losartan 50 mg-hydrochlorothiazide 1 tab PO DAILY High Blood Pressure 03/21/23 03/22/23 History 12.5 mg tablet metformin 1,000 mg tablet 1,000 mg PO BID Diabetes 03/21/23 03/22/23 History omeprazole 20 mg capsule,delayed 20 mg PO DAILY Acid Reflux 03/21/23 03/22/23 History release potassium chloride 20 mEq 20 meq PO DAILY Supplement 03/21/23 03/22/23 History tablet,extended release(part/cryst) simvastatin 40 mg tablet 40 mg PO HS Cholesterol 03/21/23 03/22/23 History New Prescriptions to Start Prescriptions: Allergies Allergy/AdvReac Type Severity Reaction Status Date / Time codeine Allergy Verified 03/21/23 20:34 Exam (Inpt) Vital signs and Labs for Last 24 Hours: Temp Pulse Resp BP Pulse Ox O2 Del Method 97.7 F 91 H 19 142/71 H 99 Room Air 03/24/23 08:00 03/24/23 08:00 03/24/23 08:00 03/24/23 08:00 03/24/23 08:00 03/24/23 08:00 Laboratory Results - last 24 hr 03/23/23 10:52: WBC 5.7, RBC 3.03 L, Hgb 9.2 L, Hct 27.8 L, MCV 91.9, MCH 30.5, MCHC 33.2, RDW 15.0, Plt Count 76 L, MPV 10.6 H, Neut % (Auto) 67.1, Lymph % (Auto) 21.9, [place] % (Auto) 6.7, Eos % (Auto) 3.5, Baso % (Auto) 0.9, Neut # (Auto) 3.9, Lymph # (Auto) 1.3, [place] # (Auto) 0.4, Eos # (Auto) 0.2, Baso # (Auto) 0.1, Sodium 129 L, Potassium 3.7, Chloride 103, Carbon Dioxide 21 L, Anion Gap 8.7, BUN 20, Creatinine 1.30 H, Estimated Creat Clear 57, Estimated GFR 53 L, Est GFR ( Amer) 64, Glucose 313 H, Calcium 7.8 L 03/23/23 11:49: POC Glucose 317 H* 03/23/23 15:28: WBC 5.2, RBC 2.95 L, Hgb 9.0 L, Hct 27.3 L, MCV 92.7, MCH 30.6, MCHC 33.0, RDW 15.1, Plt Count 81 L, MPV 10.3, Neut % (Auto) 67.6, Lymph % (Auto) 22.1, [place] % (Auto) 6.7, Eos % (Auto) 3.2, Baso % (Auto) 0.5, Neut # (Auto) 3.5, Lymph # (Auto) 1.1, [place] # (Auto) 0.4, Eos # (Auto) 0.2, Baso # (Auto) 0.0, Sodium 128 L, Potassium 3.7, Chloride 103, Carbon Dioxide 21 L, Anion Gap 7.7, BUN 20, Creatinine 1.30 H, Estimated Creat Clear 57, Estimated GFR 53 L, Est GFR ( Amer) 64, Glucose 381 H D, Calcium 7.6 L, Total Creatine Kinase 2920 H* 03/23/23 16:34: POC Glucose 388 H* 03/23/23 19:53: POC Glucose 333 H* 03/24/23 05:13: POC Glucose 344 H* 03/24/23 06:29: WBC 5.0, RBC 3.04 L, Hgb 9.4 L, Hct 28.7 L, MCV 94.3 H, MCH 31.0, MCHC 32.8, RDW 15.3, Plt Count 89 L, MPV 11.0 H, Neut % (Auto) 64.9, Lymph % (Auto) 22.2, [place] % (Auto) 8.1, Eos % (Auto) 4.3, Baso % (Auto) 0.5, Neut # (Auto) 3.2, Lymph # (Auto) 1.1, [place] # (Auto) 0.4, Eos # (Auto) 0.2, Baso # (Auto) 0.0, Sodium 131 L, Potassium 3.4 L, Chloride 106, Carbon Dioxide 21 L, Anion Gap 7.4, BUN 17, Creatinine 1.20, Estimated Creat Clear 62, Estimated GFR 58 L, Est GFR ( Amer) 70, Glucose 326 H, Calcium 7.6 L, Total Creatine Kinase 1474 H* D I & O for Labs for Last 24 Hours: Intake & Output 03/21/23 03/22/23 03/23/23 03/24/23 11:59 11:59 11:59 11:59 Intake Total 1797 / 1797 2647 / 2647 802 / 802 Output Total 400 / 400 725 / 725 800 / 800 Balance 1397 / 1397 1922 / 1922 Weight 209 lb 11.788 oz 209 lb 11.894 oz 209 lb 12.176 oz Constitutional: Present no acute distress and obese Head: Present normocephalic Neck: Present normal inspection Respiratory: Present able to speak in complete sentences Cardiac: Present pedal pulses present Rectal (male): Present deferred (male): Present deferred Extremities: Present normal inspection Skin: Present intact and warm Comment:: Abrasion noted to right second dorsal toe. No signs of infection or ulceration noted. Neuro: Present alert, awake and moves all extremities Ankle: bilateral: normal inspection Feet/Toes: bilateral: hammer toe and bilateral: nail abnormalities (yellow thick dystrophic nails) Comments:: Right hallux proximal phalanx nondisplaced avulsion fracture. No pain to palpation. No open fracture. Results Labs 03/24/23 06:29 03/24/23 06:29 Labs: Abnormal lab results 03/23/23 03/23/23 03/23/23 Range/Units 10:52 11:49 15:28 RBC 3.03 L 2.95 L (4.60-6.20) M/mm3 Hgb 9.2 L 9.0 L (14.1-18.0) g/dL Hct 27.8 L 27.3 L (42.0-52.0) % MCV (80-94) fl Plt Count 76 L 81 L (142-424) K/mm3 MPV 10.6 H (7.4-10.4) fl Sodium 129 L 128 L (136-145) mmol/L Potassium (3.5-5.1) mmoL/L Carbon Dioxide 21 L 21 L (22.0-30.0) mmol/L Creatinine 1.30 H 1.30 H (0.66-1.25) mg/dl Estimated GFR 53 L 53 L (>60) ml/min Glucose 313 H 381 H D (74-100) mg/dl POC Glucose 317 H* (70-110) Calcium 7.8 L 7.6 L (8.4-10.2) mg/dl Total Creatine Kinase 2920 H* (55-170) U/L 03/23/23 03/23/23 03/24/23 Range/Units 16:34 19:53 05:13 RBC (4.60-6.20) M/mm3 Hgb (14.1-18.0) g/dL Hct (42.0-52.0) % MCV (80-94) fl Plt Count (142-424) K/mm3 MPV (7.4-10.4) fl Sodium (136-145) mmol/L Potassium (3.5-5.1) mmoL/L Carbon Dioxide (22.0-30.0) mmol/L Creatinine (0.66-1.25) mg/dl Estimated GFR (>60) ml/min Glucose (74-100) mg/dl POC Glucose 388 H* 333 H* 344 H* (70-110) Calcium (8.4-10.2) mg/dl Total Creatine Kinase (55-170) U/L 03/24/23 Range/Units 06:29 RBC 3.04 L (4.60-6.20) M/mm3 Hgb 9.4 L (14.1-18.0) g/dL Hct 28.7 L (42.0-52.0) % MCV 94.3 H (80-94) fl Plt Count 89 L (142-424) K/mm3 MPV 11.0 H (7.4-10.4) fl Sodium 131 L (136-145) mmol/L Potassium 3.4 L (3.5-5.1) mmoL/L Carbon Dioxide 21 L (22.0-30.0) mmol/L Creatinine (0.66-1.25) mg/dl Estimated GFR 58 L (>60) ml/min Glucose 326 H (74-100) mg/dl POC Glucose (70-110) Calcium 7.6 L (8.4-10.2) mg/dl Total Creatine Kinase 1474 H* D (55-170) U/L H & H 03/22/23 03/23/23 03/23/23 Range/Units 06:55 10:52 15:28 Hgb 9.8 L 9.2 L 9.0 L (14.1-18.0) g/dL Hct 29.9 L 27.8 L 27.3 L (42.0-52.0) % 03/24/23 Range/Units 06:29 Hgb 9.4 L (14.1-18.0) g/dL Hct 28.7 L (42.0-52.0) % Coagulation 03/22/23 Range/Units 06:55 INR 1.26 H (0.9-1.1) All other labs normal. Diagnostic results Ankle/Foot x-ray: report reviewed (Avulsion fracture base first proximal phalanx) and image reviewed Assessment and Plan *Assessment and plan (1) Fracture of great toe of right foot: Status: Acute Qualifiers: Encounter type: initial encounter Fracture type: closed Phalanx: proximal Fracture alignment: nondisplaced Qualified Code(s): S92.414A - Nondisplaced fracture of proximal phalanx of right great toe, initial encounter for closed fracture Category: Medical Code(s): S92.401A - Displaced unspecified fracture of right great toe, initial encounter for closed fracture (2) Diabetes mellitus: Status: Acute Qualifiers: Diabetes mellitus type: type 2 Diabetes 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 Diabetes mellitus complication status: with other specified complication Qualified Code(s): E11.69 - Type 2 diabetes mellitus with other specified complication; Z79.4 - termite control representative (current) use of insulin Category: Medical Code(s): E11.9 - Type 2 diabetes mellitus without complications (3) Fall at home: Status: Acute Qualifiers: Encounter type: initial encounter Qualified Code(s): W19.XXXA - Unspecified fall, initial encounter; Y92.009 - Unspecified place in unspecified non-institutional (private) residence as the place of occurrence of the external cause Category: Medical Code(s): W19.XXXA - Unspecified fall, initial encounter; Y92.009 - Unspecified place in unspecified non-institutional (private) residence as the place of occurrence of the external cause (4) Onychomycosis: Status: Acute Category: Medical Code(s): B35.1 - Tinea unguium Plan Right proximal phalanx great toe avulsion fracture: -Fall at home, admitted over the weekend -X-ray 03/21/2023 reviewed: Avulsion fracture of the base of the first proximal phalanx, nondisplaced -Family/niece at bedside. Discussed the x-rays and exam with the patient/family. -Reports no pain to right great toe -Recommended treatment: -No surgery warranted for toe fracture. -Education handout given to family on toe fracture treatment. -Discussed RICE protocol. -Patient has been evaluated by PT. -Recommend gait training. -Discussed a surgical shoe for the patient. He is okay to use a surgical shoe or a rigid stiff soled shoe. -Ok for patient to have a flat post op shoe for toe fracture if needed. Defer to PT for safety need (i.e. if safe to walk with the surgical shoe he can use it). -Ok to be WB to right foot with walker or DME assistance. The toe fracture will not change his WB restrictions. -If PT during is it okay to be WBaT in post op shoe, will need to get from ER (Podiatry clinic does not have). -Discussed plan of care with Dr Newman, Hospitalist. -Will need follow up outpatient for DM foot care (nail debridement and ordering DM shoes). -Follow up in 3-4 weeks for re-xray right foot to evaluate fracture healing.
--- NOTE | 2023-03-24 09:16 | P.CONCA_ITS ---
History of Present Illness History of Present Illness Consult date: 03/24/23 Requesting physician: Dina Vickers Consult reason: atrial fibrillation Chief complaint: weakness, fall History of present illness: 83-year-old white male with past medical history of insulin-dependent diabetes mellitus, coronary artery disease status post CABG, and hyperlipidemia was transferred from [facility] on Friday with complaint of new onset A-fib RVR and elevated troponin. Patient reports he fell at home the night prior to admission about 10 PM and was unable to get up until family found him the following day. Patient was taken to [facility] emergency department via EMS and was found to be in A-fib RVR with an elevated troponin. Patient was transferred to [facility] for further evaluation per cardiology. Upon presentation to [facility] patient was in A-fib RVR with a rate of 110. Creatinine was elevated at 1.3 and a total creatinine kinase was noted at 2920. Initial troponin was 0.26 trending down to 0.24. Since admission patient has been given gentle IV fluids and was started on Eliquis for A-fib. Patient is currently A-fib rate, rate 90s. Patient reports he is overall feeling better. Denies chest pain or shortness of breath. Echo is pending. [facility] Disclaimer: The information contained in this section may have been updated after the patient was seen, as this information can be updated by other users. Medical History (Updated 03/24/23 @ 09:28 by Priscila Barfield APRN) Diabetes mellitus Hypertension Stroke Surgical History (Updated 03/21/23 @ 21:02 by Ramon Brasher APRN) Hx of CABG Family History (Updated 03/21/23 @ 20:33 by Jacquie Griggs RN) Other Diabetes Heart disease Social History (Updated 03/21/23 @ 20:28 by Jacquie Griggs RN) Smoking Status: Never smoker alcohol intake: never current occupational status: disabled Travel in the last 8 weeks: None Review of Systems Review of Systems Review of systems:: pertinent systems reviewed and negative unless documented below Constitutional Constitutional: Reports weakness ENT Ears, Nose, Mouth, and Throat: Reports disequilibrium *Cardiovascular Cardiovascular: Denies chest pain and Denies dyspnea *Respiratory Respiratory: Denies dyspnea *Neurologic Neurologic: Reports system reviewed and no additional complaints, except as documented, Reports disequilibrium and Reports weakness Exam Data for Last 24 hours Vital signs and Labs for Last 24 Hours: Temp Pulse Resp BP Pulse Ox O2 Del Method 97.7 F 91 H 19 142/71 H 99 Room Air 03/24/23 08:00 03/24/23 08:00 03/24/23 08:00 03/24/23 08:00 03/24/23 08:00 03/24/23 09:00 Laboratory Results - last 24 hr 03/23/23 10:52: WBC 5.7, RBC 3.03 L, Hgb 9.2 L, Hct 27.8 L, MCV 91.9, MCH 30.5, MCHC 33.2, RDW 15.0, Plt Count 76 L, MPV 10.6 H, Neut % (Auto) 67.1, Lymph % (Auto) 21.9, [place] % (Auto) 6.7, Eos % (Auto) 3.5, Baso % (Auto) 0.9, Neut # (Auto) 3.9, Lymph # (Auto) 1.3, [place] # (Auto) 0.4, Eos # (Auto) 0.2, Baso # (Auto) 0.1, Sodium 129 L, Potassium 3.7, Chloride 103, Carbon Dioxide 21 L, Anion Gap 8.7, BUN 20, Creatinine 1.30 H, Estimated Creat Clear 57, Estimated GFR 53 L, Est GFR ( Amer) 64, Glucose 313 H, Calcium 7.8 L 03/23/23 11:49: POC Glucose 317 H* 03/23/23 15:28: WBC 5.2, RBC 2.95 L, Hgb 9.0 L, Hct 27.3 L, MCV 92.7, MCH 30.6, MCHC 33.0, RDW 15.1, Plt Count 81 L, MPV 10.3, Neut % (Auto) 67.6, Lymph % (Auto) 22.1, [place] % (Auto) 6.7, Eos % (Auto) 3.2, Baso % (Auto) 0.5, Neut # (Auto) 3.5, Lymph # (Auto) 1.1, [place] # (Auto) 0.4, Eos # (Auto) 0.2, Baso # (Auto) 0.0, Sodium 128 L, Potassium 3.7, Chloride 103, Carbon Dioxide 21 L, Anion Gap 7.7, BUN 20, Creatinine 1.30 H, Estimated Creat Clear 57, Estimated GFR 53 L, Est GFR ( Amer) 64, Glucose 381 H D, Calcium 7.6 L, Total Creatine Kinase 2920 H* 03/23/23 16:34: POC Glucose 388 H* 03/23/23 19:53: POC Glucose 333 H* 03/24/23 05:13: POC Glucose 344 H* 03/24/23 06:29: WBC 5.0, RBC 3.04 L, Hgb 9.4 L, Hct 28.7 L, MCV 94.3 H, MCH 31.0, MCHC 32.8, RDW 15.3, Plt Count 89 L, MPV 11.0 H, Neut % (Auto) 64.9, Lymph % (Auto) 22.2, [place] % (Auto) 8.1, Eos % (Auto) 4.3, Baso % (Auto) 0.5, Neut # (Auto) 3.2, Lymph # (Auto) 1.1, [place] # (Auto) 0.4, Eos # (Auto) 0.2, Baso # (Auto) 0.0, Sodium 131 L, Potassium 3.4 L, Chloride 106, Carbon Dioxide 21 L, Anion Gap 7.4, BUN 17, Creatinine 1.20, Estimated Creat Clear 62, Estimated GFR 58 L, Est GFR ( Amer) 70, Glucose 326 H, Calcium 7.6 L, Total Creatine K inase 1474 H* D I & O for Last 24 hours: Intake & Output 03/21/23 03/22/23 03/23/23 03/24/23 23:59 23:59 23:59 23:59 Intake Total 3184 / 3874 1961 100 / 100 Output Total 550 / 700 1075 / 1075 300 / 300 Balance 2634 / 3174 887 / 987 -200 / -200 Weight 209 lb 11.2 oz 209 lb 11.788 oz 209 lb 11.894 oz 209 lb 12.176 oz Constitutional Constitutional: no acute distress *Routine Respiratory Exam Respiratory: Present CTA bilaterally and symmetric chest movement *Routine Cardiovascular Exam Cardiovascular: Present Normal S1, Normal S2 and irregular rhythm Comments: A-fib noted *Routine Abdominal Exam Abdominal: Present soft and normoactive bowel sounds; Absent tenderness *Routine Extremities Exam Extremities: Present full ROM and normal capillary refill; Absent edema *Routine Skin Exam Skin: Present intact, dry and warm Detailed Neck Exam: Thyroids Thyroid: Absent bruit Meds Home Medications and Allergies Home Medications Medication Instructions Recorded Confirmed Type losartan 50 mg-hydrochlorothiazide 1 tab PO DAILY High Blood Pressure 03/21/23 03/22/23 History 12.5 mg tablet metformin 1,000 mg tablet 1,000 mg PO BID Diabetes 03/21/23 03/22/23 History potassium chloride 20 mEq 20 meq PO DAILY Supplement 03/21/23 03/22/23 History tablet,extended release(part/cryst) simvastatin 40 mg tablet 40 mg PO HS Cholesterol 03/21/23 03/22/23 History apixaban 5 mg tablet (Eliquis) 5 mg PO BID 30 days #60 tabs 03/24/23 Rx aspirin 81 mg chewable tablet 81 mg PO DAILY 30 days #30 tabs 03/24/23 Rx bisoprolol fumarate 5 mg tablet 5 mg PO DAILY 30 days #30 tabs 03/24/23 Rx insulin human U-100 NPH-regulr 60 unit (0.6 mL) SQ BID Diabetes 03/24/23 03/24/23 Rx 70-30 mix 100 unit/mL subcutaneous 30 days #0 mL susp (Novolin 70/30 U-100 Insulin) pantoprazole 40 mg tablet,delayed 40 mg PO HS 30 days #30 tabs 03/24/23 Rx release New Prescriptions to Start Prescriptions: apixaban [Eliquis] Alin Newman aspirin Alin Newman bisoprolol fumarate Alin Newman pantoprazole Alin Newman Allergies Allergy/AdvReac Type Severity Reaction Status Date / Time codeine Allergy Verified 03/21/23 20:34 Assessment and Plan *Assessment and plan (1) Hypertension: Status: Acute Qualifiers: Hypertension type: unspecified Qualified Code(s): I10 - Essential (primary) hypertension Category: Medical Code(s): I10 - Essential (primary) hypertension (2) Hx of CABG: Status: Acute Category: Surgical Code(s): Z95.1 - Presence of aortocoronary bypass graft (3) Acute kidney injury: Status: Acute Category: Medical Code(s): N17.9 - Acute kidney failure, unspecified (4) CAD (coronary artery disease): Status: Acute Category: Medical Code(s): I25.10 - Atherosclerotic heart disease of [place] coronary artery without angina pectoris (5) Elevated troponin: Status: Acute Category: Medical Code(s): R79.89 - Other specified abnormal findings of blood chemistry (6) Afib: Status: Acute Category: Medical Code(s): I48.91 - Unspecified atrial fibrillation (7) Fall at home: Status: Acute Qualifiers: Encounter type: initial encounter Qualified Code(s): W19.XXXA - Unspecified fall, initial encounter; Y92.009 - Unspecified place in unspecified non-institutional (private) residence as the place of occurrence of the external cause Category: Medical Code(s): W19.XXXA - Unspecified fall, initial encounter; Y92.009 - Unspecified place in unspecified non-institutional (private) residence as the place of occurrence of the external cause Plan New onset afib CHadsvasc score 5 -Currently A-fib rate in the 90s -Continue Eliquis 5 mg p.o. twice daily -Start bisoprolol 5 mg p.o. daily -Echocardiogram is pending but EF looks normal on Premlim. - 2 week event monitor at dc. -Will consider LEILANI/Cardioversion at follow up if remains afib. Coronary artery disease History of CABG Acute myocardial injury -Troponin 0.26 trending down to 0.24 in the setting of acute illness with an JASMINA and rhabdo -EKG is negative for acute ischemic changes -Given patient's current JASMINA and rhabdo recommend outpatient stress testing to further evaluate given patient denies symptoms of chest pain or shortness of breath currently. Fall at home JASMINA Rhabdomyolysis -Creatinine 1.30 down to 1.2 -CK 2920 down to 1474 -Continue gentle fluids CV summary 03/24/2023: Start bisoprolol 5 mg p.o. daily. Echocardiogram is pending. 2 week event monitor at dc home. patient is cv stable for dc home, please have patient follow up in cardiology clinic on friday. If still in Afib then consider LEILANI/Cardioversion. Will need outpatient stress test for CAD.
--- NOTE | 2023-03-24 09:45 | ECG_ITS ---
APPROVED REPORT Exam: Resting ECG HR:101 bpm ECG Measurements Heart Rate 101 AXES QRSd 107 QRS 29 QT 386 T 76 QTc 444 Conclusion ATRIAL FIBRILLATION WITH RAPID VENTRICULAR RESPONSE WITH ABERRANT CONDUCTION OR VENTRICULAR PREMATURE COMPLEXES ANTEROSEPTAL MYOCARDIAL INFARCTION , OF INDETERMINATE AGE [40+ ms Q WAVE IN V1-V4] ABNORMAL ECG UNCONFIRMED REPORT Electronically signed by : Victorino Lomeli MD 03/24/2023 17:35:06
[2023-03-24] MEDS: BISOPROLOL 5MG TABLET 5 MG PO (09:49)
--- NOTE | 2023-03-24 10:28 | SW/DCPLANNER ---
Addendum entered by Nakia Mishra 03/24/23 15:07: Per Padma w/ home health: services will start tomorrow for this patient. Original Note: I received a consult on this patient regarding discharge plans. PT/OT evaluated patient and recommended home w/ family and home health services. I spoke w/ patient, daughter (Melly) and grand daughter this AM: the plan is for patient to discharge home w/ daughter and home health services. Patient prefers to use [facility]. I will fax patient information/order to [facility] once discharge date is known. Daughters address is [address] [place] [address] in [place] [phone]. I will continue to follow up w/ patient, family and MD.
--- NOTE | 2023-03-24 10:50 | P.DS_ITS ---
General Admission date:: 03/21/23 Discharge date: 03/24/23 HPI HPI HPI: This is a 83yo M with PMHx of IDDM, CHF, CAD s/p CABG, not on blood thinner, HLD, referred from [facility] for evalution of new onset afib with RVR and elevated troponin. Patient alert and oriented, reported he fell at home last night about 10p and was not able to get up until family found him down today. Daughter, at bedside also confirmed history. EMS arrived and took patient to the nearest ER. On route patient was found to be on afib with RVR, patient and family denied previous Hx of that, and his is not on any anticoagulant other than aspirin. Patient also reported generalized weakness, denied LOC, and head trauma. On arrival ER , detected elevated troponin, CK and confirmed afib rhythm. Patient was referred to us for cardiology evaluation. Admitted. Podiatry consult: Consulted for right great toe proximal phalanx nondisplaced fracture. New to the podiatry practice, diabetic male. Family/niece at bedside. Explained the nature of the nondisplaced fracture. No surgery or podiatry intervention warranted at this time. Patient reports he is ambulatory and was able to get up with PT over the weekend. Denies pain to the right foot. Hospital Course Hospital Course Hospital Course: 83yo M with PMHx of IDDM, CHF, CAD s/p CABG, not on blood thinner, HLD, referred from [facility] for evalution of new onset afib with RVR and elevated troponin. Patient alert and oriented, reported he fell at home prior to admission and not able to get up. Family found him. Came to the ER for further evaluation. Found to have abnormal labs are troponin, elevated creatinine, CK, BNP. CT of the head was obtained and does not showed acute intracraneal process. Admitted for management. Cardiology consulted. Patient stable and is been evaluated by therapy, recommend placement but family would like to take him home with home health. Stable for discharge, problems addressed as follows: New onset Afib: [id number] score of 5 Hypertension History of CABG Cardiology consulted. Patient's regimen was adjusted and rate hold. Recommends event monitor at discharge. Initiated on Eliquis 5 mg twice daily for anticoagulation. Obtain showing preserved infraction. Patient is stable to discharge home with plan to follow-up in cardiology clinic on Friday. If still in the A-fib at that time we will consider cardioversion and will also need outpatient stress test. Continue bisoprolol 5 mg daily for rate control, aspirin 81 mg daily, Eliquis 5 mg twice daily, and losartan/HCTZ for blood pressure daily. Continue simvastatin 40 mg daily Rhabdomyolysis, secondary to fall and being lying down for a long period of time: CK showed improvement. Patient making adequate urine. Avulsion fracture base of first proximal phalanx. Podiatry consulted. Patient does not appear to have any pain or discomfort from this. Recommend firm soled shoe. No intervention planned at this time. - JASMINA: stable Creatinine baseline appears to be 1.2-1.3. Elevated slightly on admission. Needs repeat labs in 1 week to monitor for improvement. Caution with nephrotoxins during admission. Insulin-dependent diabetes: A1c obtained, elevated 8.3. Continue home regimen at discharge but counseled on need to take it twice daily as it is ordered as he is only using it once daily. Needs repeat A1c in 3 months.I Stable for home with home health. Spent 30 minutes in discharge counseling, discussion with subspecialist, documentation, chart review, and direct care with patient. Exam Data for Last 24 hours Vital signs and Labs for Last 24 Hours: Temp Pulse Resp BP Pulse Ox O2 Del Method 97.7 F 91 H 19 142/71 H 99 Room Air 03/24/23 08:00 03/24/23 08:00 03/24/23 08:00 03/24/23 08:00 03/24/23 08:00 03/24/23 09:00 Laboratory Results - last 24 hr 03/23/23 10:52: WBC 5.7, RBC 3.03 L, Hgb 9.2 L, Hct 27.8 L, MCV 91.9, MCH 30.5, MCHC 33.2, RDW 15.0, Plt Count 76 L, MPV 10.6 H, Neut % (Auto) 67.1, Lymph % (Auto) 21.9, [place] % (Auto) 6.7, Eos % (Auto) 3.5, Baso % (Auto) 0.9, Neut # (Auto) 3.9, Lymph # (Auto) 1.3, [place] # (Auto) 0.4, Eos # (Auto) 0.2, Baso # (Auto) 0.1, Sodium 129 L, Potassium 3.7, Chloride 103, Carbon Dioxide 21 L, A nion Gap 8.7, BUN 20, Creatinine 1.30 H, Estimated Creat Clear 57, Estimated GFR 53 L, Est GFR ( Amer) 64, Glucose 313 H, Calcium 7.8 L 03/23/23 11:49: POC Glucose 317 H* 03/23/23 15:28: WBC 5.2, RBC 2.95 L, Hgb 9.0 L, Hct 27.3 L, MCV 92.7, MCH 30.6, MCHC 33.0, RDW 15.1, Plt Count 81 L, MPV 10.3, Neut % (Auto) 67.6, Lymph % (Auto) 22.1, [place] % (Auto) 6.7, Eos % (Auto) 3.2, Baso % (Auto) 0.5, Neut # (Auto) 3.5, Lymph # (Auto) 1.1, [place] # (Auto) 0.4, Eos # (Auto) 0.2, Baso # (Auto) 0.0, Sodium 128 L, Potassium 3.7, Chloride 103, Carbon Dioxide 21 L, Anion Gap 7.7, BUN 20, Creatinine 1.30 H, Estimated Creat Clear 57, Estimated GFR 53 L, Est GFR ( Amer) 64, Glucose 381 H D, Calcium 7.6 L, Total Creatine Kinase 2920 H* 03/23/23 16:34: POC Glucose 388 H* 03/23/23 19:53: POC Glucose 333 H* 03/24/23 05:13: POC Glucose 344 H* 03/24/23 06:29: WBC 5.0, RBC 3.04 L, Hgb 9.4 L, Hct 28.7 L, MCV 94.3 H, MCH 31.0, MCHC 32.8, RDW 15.3, Plt Count 89 L, MPV 11.0 H, Neut % (Auto) 64.9, Lymph % (Auto) 22.2, [place] % (Auto) 8.1, Eos % (Auto) 4.3, Baso % (Auto) 0.5, Neut # (Auto) 3.2, Lymph # (Auto) 1.1, [place] # (Auto) 0.4, Eos # (Auto) 0.2, Baso # (Auto) 0.0, Sodium 131 L, Potassium 3.4 L, Chloride 106, Carbon Dioxide 21 L, Anion Gap 7.4, BUN 17, Creatinine 1.20, Estimated Creat Clear 62, Estimated GFR 58 L, Est GFR ( Amer) 70, Glucose 326 H, Calcium 7.6 L, Total Creatine Kinase 1474 H* D I & O for Last 24 hours: Intake & Output 03/21/23 03/22/23 03/23/23 03/24/23 23:59 23:59 23:59 23:59 Intake Total 3184 / 3874 1962 / 2062 100 / 100 Output Total 550 / 700 1075 / 1075 300 / 300 Balance 2634 / 3174 887 / 987 -200 / -200 Weight 95.118 kg 95.135 kg 95.138 kg 95.146 kg Constitutional Constitutional: no acute distress, obese and chronically ill appearing *Routine HEENT Exam Head: Present normocephalic Eye: Present EOMI and PERRL ENT: Present mucous membranes moist *Routine Neck Exam Neck: Present supple; Absent lymphadenopathy Routine Chest/Breast/Axilla Exam Chest wall: Absent tenderness Comments: Well-healed sternotomy scar *Routine Respiratory Exam Respiratory: Present CTA bilaterally; Absent rhonchi, wheezes or crackles *Routine Cardiovascular Exam Cardiovascular: Present irregularly irregular *Routine Abdominal Exam Abdominal: Present soft and normoactive bowel sounds; Absent tenderness *Routine Extremities Exam Extremities: Present edema (1+ to knees); Absent cyanosis or clubbing *Routine Skin Exam Skin: Present warm; Absent rash *Routine Neurological Exam Neurological: Present alert and moving all extremities; Absent altered mental status Comments: Oriented to self and place Results Data Completed and Pending Labs on day of discharge: Labs from last 24 hours 03/24/23 03/24/23 03/23/23 06:29 05:13 19:53 WBC 5.0 RBC 3.04 L Hgb 9.4 L Hct 28.7 L MCV 94.3 H MCH 31.0 MCHC 32.8 RDW 15.3 Plt Count 89 L MPV 11.0 H Neut % (Auto) 64.9 Lymph % (Auto) 22.2 [place] % (Auto) 8.1 Eos % (Auto) 4.3 Baso % (Auto) 0.5 Neut # (Auto) 3.2 Lymph # (Auto) 1.1 [place] # (Auto) 0.4 Eos # (Auto) 0.2 Baso # (Auto) 0.0 Sodium 131 L Potassium 3.4 L Chloride 106 Carbon Dioxide 21 L Anion Gap 7.4 BUN 17 Creatinine 1.20 Estimated Creat Clear 62 Estimated GFR 58 L Est GFR ( Amer) 70 Glucose 326 H POC Glucose 344 H* 333 H* Calcium 7.6 L Total Creatine Kinase 1474 H* D 03/23/23 03/23/23 03/23/23 16:34 15:28 11:49 WBC 5.2 RBC 2.95 L Hgb 9.0 L Hct 27.3 L MCV 92.7 MCH 30.6 MCHC 33.0 RDW 15.1 Plt Count 81 L MPV 10.3 Neut % (Auto) 67.6 Lymph % (Auto) 22.1 [place] % (Auto) 6.7 Eos % (Auto) 3.2 Baso % (Auto) 0.5 Neut # (Auto) 3.5 Lymph # (Auto) 1.1 [place] # (Auto) 0.4 Eos # (Auto) 0.2 Baso # (Auto) 0.0 Sodium 128 L Potassium 3.7 Chloride 103 Carbon Dioxide 21 L Anion Gap 7.7 BUN 20 Creatinine 1.30 H Estimated Creat Clear 57 Estimated GFR 53 L Est GFR ( Amer) 64 Glucose 381 H D POC Glucose 388 H* 317 H* Calcium 7.6 L Total Creatine Kinase 2920 H* 03/23/23 10:52 WBC 5.7 RBC 3.03 L Hgb 9.2 L Hct 27.8 L MCV 91.9 MCH 30.5 MCHC 33.2 RDW 15.0 Plt Count 76 L MPV 10.6 H Neut % (Auto) 67.1 Lymph % (Auto) 21.9 [place] % (Auto) 6.7 Eos % (Auto) 3.5 Baso % (Auto) 0.9 Neut # (Auto) 3.9 Lymph # (Auto) 1.3 [place] # (Auto) 0.4 Eos # (Auto) 0.2 Baso # (Auto) 0.1 Sodium 129 L Potassium 3.7 Chloride 103 Carbon Dioxide 21 L Anion Gap 8.7 BUN 20 Creatinine 1.30 H Estimated Creat Clear 57 Estimated GFR 53 L Est GFR ( Amer) 64 Glucose 313 H POC Glucose Calcium 7.8 L Total Creatine Kinase DS: Diagnosis Discharge Diagnosis (1) Hypertension: Status: Acute Code(s): I10 - Essential (primary) hypertension Qualifiers: Hypertension type: unspecified Qualified Code(s): I10 - Essential (primary) hypertension (2) Hx of CABG: Status: Acute Code(s): Z95.1 - Presence of aortocoronary bypass graft (3) Acute kidney injury: Status: Acute Code(s): N17.9 - Acute kidney failure, unspecified (4) CAD (coronary artery disease): Status: Acute Code(s): I25.10 - Atherosclerotic heart disease of [place] coronary artery without angina pectoris (5) Elevated troponin: Status: Acute Code(s): R79.89 - Other specified abnormal findings of blood chemistry (6) Afib: Status: Acute Code(s): I48.91 - Unspecified atrial fibrillation (7) Fall at home: Status: Acute Code(s): W19.XXXA - Unspecified fall, initial encounter; Y92.009 - Unspecified place in unspecified non-institutional (private) residence as the place of occurrence of the external cause Qualifiers: Encounter type: initial encounter Qualified Code(s): W19.XXXA - Unspecified fall, initial encounter; Y92.009 - Unspecified place in unspecified non-institutional (private) residence as the place of occurrence of the external cause Meds Home Medications and Allergies Home Medications Medication Instructions Recorded Confirmed Type losartan 50 mg-hydrochlorothiazide 1 tab PO DAILY High Blood Pressure 03/21/23 03/26/23 History 12.5 mg tablet metformin 1,000 mg tablet 1,000 mg PO BID Diabetes 03/21/23 03/26/23 History potassium chloride 20 mEq 20 meq PO DAILY Supplement 03/21/23 03/26/23 History tablet,extended release(part/cryst) simvastatin 40 mg tablet 40 mg PO HS Cholesterol 03/21/23 03/26/23 History apixaban 5 mg tablet (Eliquis) 5 mg PO BID 30 days #60 tabs 03/24/23 03/26/23 Rx aspirin 81 mg chewable tablet 81 mg PO DAILY 30 days #30 tabs 03/24/23 03/26/23 Rx bisoprolol fumarate 5 mg tablet 5 mg PO DAILY 30 days #30 tabs 03/24/23 03/26/23 Rx insulin human U-100 NPH-regulr 60 unit (0.6 mL) SQ BID Diabetes 03/24/23 03/26/23 Rx 70-30 mix 100 unit/mL subcutaneous 30 days #0 mL susp (Novolin 70/30 U-100 Insulin) pantoprazole 40 mg tablet,delayed 40 mg PO HS 30 days #30 tabs 03/24/23 03/26/23 Rx release Varina's wort 300 mg capsule 300 mg PO DAILY Supplement 03/26/23 03/27/23 History watgqabstnil-ikerbcvk-fhulyu tablet 1 tab PO DAILY Supplement 03/26/23 03/27/23 History vitamin B complex 1 tab PO DAILY Supplement 03/26/23 03/27/23 History New Prescriptions to Start Prescriptions: apixaban [Eliquis] Alin Newman aspirin Alin Newman bisoprolol fumarate Paty,Alin pantoprazole Alin Newman Allergies Allergy/AdvReac Type Severity Reaction Status Date / Time codeine Allergy Verified 03/21/23 20:34 Discharge Plan Disposition Patient Disposition: Home Health Service Condition: Fair Discharge Order Discharge Orders: Discharge Order (Routine); Ordered 03/24/23 Ordered By: Alin Newman Follow up Plan Follow up with: Laurel Cuellar DPM [Staff Physician] - 04/24/23 9:00 am (get repeat xray prior to appointment ) Leonid Kendrick MD [Staff Physician] - 04/08/23 2:15 pm Prescriptions/Medication Reconciliation: New bisoprolol fumarate 5 mg Tablet 5 mg PO DAILY 30 Days Qty: 30 0RF pantoprazole 40 mg Tablet,Delayed Release (Dr/Ec) 40 mg PO HS 30 Days Qty: 30 0RF aspirin 81 mg Tablet,Chewable 81 mg PO DAILY 30 Days Qty: 30 0RF Eliquis 5 mg Tablet 5 mg PO BID 30 Days Qty: 60 0RF Continued simvastatin 40 mg tablet 40 mg PO HS potassium chloride 20 mEq tablet,ER particles/crystals 20 meq PO DAILY metformin 1,000 mg tablet 1,000 mg PO BID losartan-hydrochlorothiazide 50-12.5 mg tablet 1 tab PO DAILY Changed Novolin 70/30 U-100 Insulin 100 unit/mL (70-30) suspension 60 unit SQ BID 30 Days Qty: 0 0RF Discontinued omeprazole 20 mg capsule,delayed release(DR/EC) 20 mg PO DAILY No Action vitamin B complex Tablet 1 tab PO DAILY Darlin's wort 300 mg Capsule 300 mg PO DAILY Centrum Silver Tablet 1 tab PO DAILY Other Ambulatory Orders: Home Medical Equipment (Routine) Location: None Selected Ordered By: Alin Newman Problem Reconciliation Problems Reviewed?: Yes Patient Discharge Instructions ACTIVITY: Continue current activity DIET: continue same diet Patient Instructions: DI for Atrial Fibrillation, How to Prevent Falls, DI for Acute Kidney Injury Providers Primary Care Provider: Provider,Referral Admit Provider: Dina Vickers Attending Provider: Dina Vickers
--- NOTE | 2023-03-24 11:02 | HMH.PTEV ---
Physical Therapy Evaluation Rehab PT IP Evaluation Start: 03/21/23 20:37 Freq: ONCE Status: Complete Protocol: Document 03/22/23 15:12 PDESEROUX (Rec: 03/22/23 15:23 PDESEROUX [id number]) Subjective/History History History Pt. is a 83 year old male who presents to [facility] 2nd floor Inpatient setting for the inital Physical Therapy Inpatient evaluation this date (03/22/23) secondary to having a fall at home. Pt. reports he fell at home yesterday and did not have the strength to IND. get himself back up. Pt. reports his family found him on the floor the next day and assisted pt. up off the floor. Pt. reports he lives alone in a 1-story trailer. Pt. reports IND. w/ ADLs, but receives check ups daily by his family members. Pt. vocalizes that his Grandaughter and her family had agreed to move pt. into their home to assist pt. w/ ADLs at this time secondary to generalized weakness, pt. vocalized he was okay with this plan. PMH includes CHF, IDDM, CAD s/p CABG, and Hyperlipidemia. Pt.'s family members(x3) were present at the time of the Inpatient Physical Therapy evaluation this date. Subjective Subjective Pt. was R-sidelying in hospital bed upon being verbal consent to enter into pt.'s hospital room. Pt. reports, I can get up if you want me to. New diagnosis of cancer in past 12 No months? Rehab PT IP Eval Objective Appearance Patient Behavior Appropriate,Cooperative Patient Orientation Person,Place,Birthday, Situation Difficulty following instructions none Speech Pattern Clear,Appropriate,Coherent Ambulation Patient Able to Ambulate Yes Ambulation Observation IP General Gait Pattern Observation Wide Based Gait,Shuffling Step Ambulation Distance (feet) 25 Ambulation Assistive Device Rolling Walker Ambulation Ability Contact Guard/Hand Hold Balance Ability to Arise Able, uses arms to help Sitting Balance Steady, safe Standing Balance Narrow stance w/o support Dynamic Sitting Balance Ability Good Dynamic Standing Balance Ability Good Transfers Bed Transfer Ability Contact Guard/Hand Hold Chair Transfer Ability Contact Guard/Hand Hold Sit to Stand Bed Transfer Ability Contact Guard/Hand Hold Sit to Stand Chair Transfer Ability Contact Guard/Hand Hold ROM RLE PT ROM Status WFL LLE PT ROM Status WFL MMT RLE PT MMT WFL LLE PT MMT WFL Rehab PT IP prob,goals,plan Problems Date of Evaluation: 03/22/23 PT IP Problems Gait,Balance,Self care,Safety Rehab Potential Rehab Potential Innapropriate for Skilled Therapy Equipment Needs Assistive Devices Rolling / Wheeled Walker Plan PT Intervention Plan Gait,Balance,Self care,Safety, Therapeutic Exercise PT Plan Frequency Daily Duration LOS Discharge Goals Bed Transfer Ability Contact Guard/Hand Hold Sit to Stand Chair Transfer Ability Contact Guard/Hand Hold Ambulation Assistive Device Rolling Walker Ambulation Distance (feet) 25 Discharge Plan PT Discharge Plan Upon D/C, once medically stable per MD, pt. is appropriate to return to family's([facility]) residence w/ medical equipment including FWW w/ the assistance of family w/ ADLs. Pt. would further benefit from Home Health Physical Therapy to improve muscle strength and endurance to improve current quality of life and reduce the risk of having another fall. Eval Complexity Eval Charge Codes 13293 - Low Complexity Rehab PT IP Evaluation Start: 03/24/23 08:52 Freq: ONCE Status: Active Protocol: Document 03/24/23 10:38 LASHAE (Rec: 03/24/23 11:01 [email or web address] [id number]) Subjective/History History History Pt is an 83 y/o male who was referred to [facility] from [facility] for evaluation on 03/21/23 with new onset afib with RVR and elevated troponin. Per history & physical note, pt fell at home on 03/20/23 and was unable to get up until his family found him down the next day. EMS arrived and took patient to the nearest ER. On route patient was found to be on afib with RVR, patient and family denied previous Hx of that, and his is not on any anticoagulant other than aspirin. Patient also reported generalized weakness, denied LOC, and head trauma. On arrival ER , detected elevated troponin, CK and confirmed afib rhythm. Patient was referred to us for cardiology evaluation. Admitted. Medical History:Diabetes mellitus, Hypertension, Stroke , Hx CABG Subjective Subjective Pt reports prior to hospitalization, he lived at home alone in a 1-story trailer. Pt reports he was independent with all ADLs although his family would check on him daily. [facility] and states that they want him to come home with family. Pt's granddaughter reports 6 people live in their home so he would never be alone. Pt's granddaughter reports they do not have steps to enter the home and although it is a two- level home he would be staying on the first flooe. Pt reports he uses a SPC at baseline for ambulation. Pt denies R foot/toe pain. New diagnosis of cancer in past 12 No months? Rehab PT IP Eval Objective Appearance Patient Behavior Appropriate,Cooperative Patient Orientation Person,Place,Name,Birthday, Year Difficulty following instructions mild Speech Pattern Clear,Appropriate Ambulation Patient Able to Ambulate Yes Ambulation Observation IP General Gait Pattern Observation Wide Based Gait,Shuffling Step Ambulation Distance (feet) 15 Ambulation Assistive Device Standard Walker Ambulation Ability Contact Guard/Hand Hold Balance Ability to Arise Able, uses arms to help Sitting Balance Steady, safe Standing Balance Steady, wide stance Dynamic Sitting Balance Ability Good Dynamic Standing Balance Ability Good Transfers Bed Transfer Ability Contact Guard/Hand Hold Chair Transfer Ability Contact Guard/Hand Hold Sit to Stand Bed Transfer Ability Minimal x 1 (25% assist) Sit to Stand Chair Transfer Ability Minimal x 1 (25% assist) Rehab PT IP prob,goals,plan Problems Date of Evaluation: 03/24/23 PT IP Problems Bed Mobility,Transfers,Gait, Balance,Self care,Safety Rehab Potential Rehab Potential Good Equipment Needs Assistive Devices Rolling / Wheeled Walker Plan PT Intervention Plan Bed Mobility,Transfers,Gait, Balance,Self care,Safety, Therapeutic Exercise Other Intervention Plan 1-2x/day PT Plan Frequency Daily Duration LOS Discharge Goals Bed Transfer Ability Contact Guard/Hand Hold Sit to Stand Chair Transfer Ability Contact Guard/Hand Hold Ambulation Assistive Device Rolling Walker Ambulation Distance (feet) 20 Discharge Plan PT Discharge Plan Once medically stable, pt is most appropriate to d/c to granddaughters home with 24/7 family assist and HHPT to address strength, balance and gait deficits. However, if 24hr assistance is not avaliable at the time of d/c, short-term rehab placement is recommended. If appropriate level of assistance is not provided at time of d/c, pt may be at increased risk of falls and further functional decline. Eval Complexity Eval Charge Codes 89962 - Moderate Complexity PHYSICIAN CERTIFICATION: I certify the specified therapy services for David Stamper are required, authorized, and reviewed every 30 days.
[2023-03-24 11:18] LABS: POC Glucose,Bedside 297 (70-110)
[2023-03-24 11:27] VITALS: BP 148/80; PULSE 93; RESP 18; TEMP 36.6; O2SAT 99
--- NOTE | 2023-03-24 20:33 | CA_ITS ---
APPROVED REPORT EXAM: Comprehensive 2D, Doppler, and color-flow Echocardiogram Community Recreation Coordinator: Hafsa Vuong CRT Ht: 5 ft 6 in Wt: 209lbs BSA: 2.04 BP: 127/74 mmHg Indications: Non STEMI, Atrial Fibrillation, Diabetes, Hyperlipidemia, Hypertension/HDD, TDE 2D Dimensions LA Volume 66.40 mL LA Volume Index 31.80 mL/m2 (M/F) 16-34 M-Mode Dimensions RVDd 3.49 cm (0.9-2.6) LA Diam 4.29 cm (1.9-4.0) LVDd 3.87 cm (3.5-5.7) LVDs 2.54 cm (3.5-5.7) IVSd 1.52 cm (0.6-1.1) PWd 1.25 cm (0.6-1.1) EF (Teich) 64.10% FS 34.40% EDV (Teich) 64.70 mL TAPSE 1.48 (<1.7) ESV (Teich) 23.20 mL LV Diastology E Decel Time 250 (160-240 msec) E/A Ratio 1.21 Aortic Valve MYLES Index 1.02 cm2/m2 AoV Peak Toy. 177.0 (50-130 cm/s) AO Peak GR. 12.60 mmHg AO Mean GR. 7.70 (<5 mmHg) AO VTI 31.5 (18-25 cm) MYLES (VTI) 2.14 (2.5-4.5 cm2) Mitral Valve MV E Max Toy. 86.0 (40-130 cm/s) MV A Velocity 71.0 (40-130 cm/s) E/A Ratio 1.21 MV PHT 73.0 ms Pulmonary Valve PV Peak Velocity 122.0 (50-150 cm/s) Tricuspid Valve TR P. Velocity 267.00 cm/s RAP Estimate 10.00 mmHg RVSP 38.50 mmHg Left Ventricle The left ventricle is normal size. The left ventricular systolic function is normal. The left ventricular ejection fraction is within the normal range. Proximal septal thickening is noted. There is normal LV segmental wall motion. Diastolic function is indeterminate. LVEF is 55%. Right Ventricle The right ventricle is mildly dilated. The right ventricular systolic function is mildly reduced. Atria The left atrium size is normal. The right atrium size is normal. There is no Doppler evidence of interatrial shunt. Aortic Valve The aortic valve is mildly thickened. Aortic sclerosis is present, with no evidence of aortic stenosis. Trace aortic regurgitation. Mitral Valve The mitral valve is mildly thickened. No evidence of mitral valve stenosis. Mild mitral regurgitation. Tricuspid Valve The tricuspid valve leaflets are thin and pliable. Trace tricuspid regurgitation. RVSP is 20-25 mmHg. Pulmonic Valve The pulmonary valve is normal in structure. Trace pulmonic valvular regurgitation. Great Vessels The aortic root is normal in size. The ascending aorta is normal in size. IVC is normal in size and collapses >50% with inspiration. Pericardium There is no pericardial effusion. Other Information Study Quality: Technically Difficult Conclusion Technically difficult study due to poor acoustic windows. Normal LV systolic function. Mildly dilated RV with mild reduction in RV systolic function. Mild TR. Electronically signed by : Jessica Kendrick MD 03/25/2023 14:30:19
--- NOTE | 2023-03-25 10:39 | HMH.OTEV ---
OT Inpatient Evaluation Rehab OT IP Evaluation Start: 03/21/23 20:37 Freq: ONCE Status: Discharge Protocol: Document 03/24/23 09:31 JONNY (Rec: 03/25/23 10:38 JONNY [id number]) Rehab OT IP Assessment Subjective History This is a 83yo M with PMHx of IDDM, CHF, CAD s/p CABG, not on blood thinner, HLD, referred from [facility] for evalution of new onset afib with RVR and elevated troponin. Patient alert and oriented, reported he fell at home last night about 10p and was not able to get up until family found him down today. Daughter, at bedside also confirmed history . EMS arrived and took patient to the nearest ER. On route patient was found to be on afib with RVR, patient and family denied previous Hx of that, and his is not on any anticoagulant other than aspirin. Patient also reported generalized weakness, denied LOC, and head trauma. On arrival ER , detected elevated troponin, CK and confirmed afib rhythm. Patient was referred to us for cardiology evaluation. Admitted. Patient lives alone in a mobile home. According to family, Patient was not taking care of himself with ADLs and IADLs. Family has planned for patient to live with them. Subjective I can get up. Analysis Patient's ability to perform bed mobility, transfers, ambulation and toileting with Min A. Patient required verbal cues for safey . Left Patient sitting upright in chair with needs met at end of session. Objective Patient Orientation Person,Place,Name,Age,Birthday ,Year Right Upper Extremity Gross ROM WFL Left Upper Extremity Gross ROM WFL Bed Mobility bed mobility - supine/sit Assist Level Minimal x 1 (25% assist) Transfer Training Sit/Stand/Step Transfer,Sit/ Stand/Pivot Transfer Assist Level Minimal x 1 (25% assist) Chair Transfer Ability Minimal x 1 (25% assist) Chair Transfer Technique Sit to/from Ambulatory Chair Transfer Assistive Devices Rolling Walker Lower Body Dressing Ability Minimal Assistance Upper Body Dressing Ability Minimal Assistance Rehab OT IP prob,goals,plan Problems Date of Evaluation: 03/25/23 OT IP Problems Bed Mobility,Transfers,Balance ,Self care,Safety Rehab Potential Rehab Potential Good Equipment Needs Assistive Devices Rolling / Wheeled Walker Plan OT intervention Plan Bed Mobility,Transfers,Balance ,Self care,Safety,Therapeutic Exercise OT Plan Frequency Daily Duration LOS Discharge Goals Bed Mobility Ability Assistance x1 Sit to Stand Chair Transfer Ability Contact Guard/Hand Hold Chair Transfer Ability Contact Guard/Hand Hold Chair Transfer Technique Sit to/from Ambulatory Chair Transfer Assistive Devices Rolling Walker Lower Body Dressing Ability Contact Guard Discharge Plan OT Discharge Plan If family is able to provide care for patient, then patient can return home. However if family is unable to provide care, then placement. Eval Complexity Eval Charge Codes 45525 - Low Complexity PHYSICIAN CERTIFICATION: I certify the specified therapy services for David Martinez are required, authorized, and reviewed every 30 days.
--- NOTE | 2023-03-26 11:17 | CARE MANAGER ---
Attempted to contact patient x2 related to hospital discharge. No VM option. RISHABH Dodd
== END 2023-03-24 15:26 | disposition home health service (06) ==
PROVIDERS: Nurse Practitioner Family; Admitting Provider Internal Medicine; Visit Provider Internal Medicine
DX: I48.91 Unspecified atrial fibrillation (principal); T79.6XXA Traumatic ischemia of muscle, initial encounter; R79.89 Other specified abnormal findings of blood chemistry; N17.9 Acute kidney failure, unspecified; W19.XXXA Unspecified fall, initial encounter; Y92.009 Unspecified place in unspecified non-institutional (private) residence as the place of occurrence of the external cause; Z95.1 Presence of aortocoronary bypass graft; I10 Essential (primary) hypertension; E11.69 Type 2 diabetes mellitus with other specified complication; Z79.4 Long term (current) use of insulin; S92.414A Nondisplaced fracture of proximal phalanx of right great toe, initial encounter for closed fracture; B35.1 Tinea unguium; I25.10 Atherosclerotic heart disease of native coronary artery without angina pectoris; R29.6 Repeated falls; E78.5 Hyperlipidemia, unspecified; Z86.73 Personal history of transient ischemic attack (TIA), and cerebral infarction without residual deficits
CPT/HCPCS: G0379; 36415; 73660; 80048; 80053; 80061; 82550; 82553; 82962; 83036; 83605; 83735; 83880; 84100; 84484; 85025; 85610; 93005; 93225; 93306; 97116; 97161; 97162; 97165; 97530; G0378

== ENCOUNTER 2023-03-26 13:53 | Observation (INO) | payer MEDICARE, SELFPAY ==
[2023-03-26] VITALS (7 sets, daily range): BP systolic 103–137; BP diastolic 46–101; PULSE 68–81; RESP 18–22; TEMP 36.5–37.6; O2SAT 92–99; BMI 31.5; BMI 33.5
--- NOTE | 2023-03-26 14:28 | CT_ITS ---
FINAL REPORT TECHNIQUE: Thin section axial CT with IV contrast supplemented with multiplanar reconstruction under CT angiogram protocol. This study was performed with techniques to keep radiation doses as low as reasonably achievable (ALARA). Individualized dose reduction techniques using automated exposure control or adjustment of mA and/or kV according to the patient''s size were employed. NASCET criteria was utilized during interpretation. CLINICAL HISTORY: r/o cva, slurred speech FINDINGS: Note is made of suboptimal contrast bolus and motion. Aortic arch: Arch shows no significant narrowing. Great vessel origins are widely patent. Right carotid: There is severe calcification at the carotid bifurcation and bulb. There is mild stenosis of the proximal right ICA. The distal ICA is normal. Left carotid: There is heavily calcified plaque at the carotid bifurcation. There is no significant stenosis. Vertebral: The vertebral arteries are codominant. There is significant calcification of the distal right vertebral artery with mild stenosis. IMPRESSION: Calcified plaque at the carotid bifurcations. Mild stenosis of the proximal right ICA. Mild stenosis of the distal right vertebral artery. Reviewed, Interpreted and Dictated by Jaziel Collins III, MD Transcribed by Jelly Mendoza Authenticated and [facility]
--- NOTE | 2023-03-26 14:28 | CT_ITS ---
FINAL REPORT CLINICAL HISTORY: r/o cva, slurred speech COMPARISON: 03/21/2023 FINDINGS: Axial images of the head were obtained without contrast. Coronal reformatted images were also obtained. This study was performed with techniques to keep radiation doses as low as reasonably achievable (ALARA). Individualized dose reduction techniques using automated exposure control or adjustment of mA and/or kV according to the patient''s size were employed. There is generalized age-appropriate atrophy. Periventricular low-attenuation areas are seen consistent with moderate chronic ischemic changes. There is no evidence of intracranial hemorrhage or mass. There is no evidence of acute infarct. There is no evidence of shift of the midline structures. No skull abnormality is seen on the bone window images. IMPRESSION: Atrophy and moderate periventricular chronic ischemic changes. Findings are stable since prior. No acute intracranial abnormality identified. Reviewed, Interpreted and Dictated by Jaziel Collins III, MD Transcribed by eJlly Mendoza Authenticated and [facility]
--- NOTE | 2023-03-26 14:28 | CT_ITS ---
FINAL REPORT TECHNIQUE: Thin section axial CT with IV contrast supplemented with multiplanar reconstruction under CT angiogram protocol. 3-D reconstructions were performed. This study was performed with techniques to keep radiation doses as low as reasonably achievable (ALARA). Individualized dose reduction techniques using automated exposure control or adjustment of mA and/or kV according to the patient''s size were employed. CLINICAL HISTORY: r/o cva, slurred speech FINDINGS: The distal vertebral, basilar and distal internal carotid arteries have an unremarkable appearance. No aneurysm is seen. Major intracranial vessels are patent without significant stenosis. IMPRESSION: No evidence of significant stenosis or major branch occlusion. Reviewed, Interpreted and Dictated by Jaziel Collins III, MD Transcribed by Jelly Mendoza Authenticated and [facility]
--- NOTE | 2023-03-26 14:28 | CT_ITS ---
FINAL REPORT CLINICAL HISTORY: r/o cva, slurred speech FINDINGS: Axial CT images of the cervical spine were obtained without contrast. Sagittal and coronal reformatted images were also obtained. This study was performed with techniques to keep radiation doses as low as reasonably achievable (ALARA). Individualized dose reduction techniques using automated exposure control or adjustment of mA and/or kV according to the patient's size were employed. There is no evidence of fracture or dislocation. There are moderate and severe degenerative changes. There is mild anterolisthesis of C4 on 5 and C5 on 6. Multilevel neural foraminal narrowing is identified. There is no evidence of canal stenosis. No paraspinous soft tissue abnormality is seen. Limited images of the upper thorax are unremarkable. IMPRESSION: Multilevel degenerative changes without acute bony abnormality. Reviewed, Interpreted and Dictated by Jaziel Collins III, MD Transcribed by Jelly Mendoza Authenticated and [facility]
--- NOTE | 2023-03-26 14:30 | XR_ITS ---
FINAL REPORT CLINICAL HISTORY: weak, fall FINDINGS: SINGLE-VIEW CHEST There is cardiomegaly. The patient is status post median sternotomy. There is left base atelectasis or pneumonia. There is no pneumothorax. IMPRESSION: Left base atelectasis or pneumonia. Reviewed, Interpreted and Dictated by Jaziel Collins III, MD Transcribed by Jelly Mendoza Authenticated and . [facility]
[2023-03-26 14:31] LABS: Chloride 106 mmol/L (98-107)
[2023-03-26 14:32] LABS: Potassium 3.5 mmoL/L (3.5-5.1); Sodium 133 mmol/L (136-145)
[2023-03-26 14:34] LABS: Alanine Aminotransferase 44 U/L (12-78); Albumin Level 2.6 g/dl (3.5-5.0); Alkaline Phosphatase 101 U/L (38-126); Aspartate Amino Transferase 71 U/L (17-59); Bilirubin,Total 1.8 mg/dl (0.2-1.3); Blood Urea Nitrogen 28 mg/dl (9-20); Creatinine Clearance Estimated 44 mL/min (50-200); Estimated Glomerular Filt Rate 36 ml/min (>60); GFR (African American) 44 ML/MIN (>60)
[2023-03-26 14:35] LABS: Albumin/Globulin Ratio 0.8 (1.1-1.8); Anion Gap 8.5 mEq/L (5-15); Calcium 7.6 mg/dl (8.4-10.2); Carbon Dioxide 22 mmol/L (22.0-30.0); Globulin 3.4 g/dL (1.3-3.2); Glucose 60 mg/dl (74-100)
--- NOTE | 2023-03-26 14:39 | ECG_ITS ---
APPROVED REPORT Exam: Resting ECG HR:69 bpm ECG Measurements Heart Rate 69 AXES UT 185 P 47 QRSd 104 QRS 52 QT 467 T 32 QTc 486 Conclusion SINUS RHYTHM WITH FREQUENT VENTRICULAR PREMATURE COMPLEXES WITH OCCASIONAL SUPRAVENTRICULAR PREMATURE COMPLEXES LOW QRS VOLTAGE IN PRECORDIAL LEADS [QRS DEFLECTION < 1.0 mV IN CHEST LEADS] POSSIBLE RIGHT VENTRICULAR CONDUCTION DELAY [RSR (QR) IN V1/V2] ANTEROSEPTAL MYOCARDIAL INFARCTION , PROBABLY OLD [40+ ms Q WAVE IN V1-V4] ABNORMAL ECG UNCONFIRMED REPORT Electronically signed by : Victorino Lomeli MD 03/27/2023 17:13:54
[2023-03-26 14:43] LABS: Basophils # 0.1 K/mm3 (0-0.2); Basophils % 0.8 % (0.1-2.0); Eosinophils # 0.3 K/mm3 (0.0-0.4); Eosinophils % 3.5 % (0.1-12.0); Hematocrit 27.9 % (42.0-52.0); Hemoglobin 9.1 g/dL (14.1-18.0); Lymphocytes # 1.8 K/mm3 (0.7-4.5); Lymphocytes % 23.9 % (10-50); Mean Corpuscular HGB Conc 32.7 g/dL (31.8-35.4); Mean Corpuscular Hemoglobin 30.6 pg (27.0-31.2); Mean Corpuscular Volume 93.5 fl (80-94); Mean Platelet Volume 10.7 fl (7.4-10.4); Monocytes # 0.7 K/mm3 (0.1-1.0); Monocytes % 8.8 % (1.7-9.3); Neutrophils # 4.8 K/mm3 (1.8-7.8); Platelet Count 104 K/mm3 (142-424); Red Blood Count 2.98 M/mm3 (4.60-6.20); Red Cell Distribution Width 15.6 % (11.5-17.5); White Blood Count 7.6 K/mm3 (4.8-10.8)
[2023-03-26 14:52] LABS: Creatine Kinase 257 U/L (55-170)
[2023-03-26 14:54] LABS: INR 1.26 (0.9-1.1); Prothrombin Time 13.4 seconds (10.1-12.5)
[2023-03-26 14:57] LABS: Troponin I 0.03 ng/ml (0.00-0.034)
[2023-03-26 15:01] LABS: T4 (Thyroxine) 7.4 ug/dl (5.53-11.0)
[2023-03-26 15:02] LABS: NT Pro Brain Natriuretic Pep. 1220 pg/mL (0-450)
[2023-03-26] MEDS: 0.9 % SODIUM CHLORIDE 50 ML VIAL IV (15:08)
[2023-03-26] MEDS: IOPAMIDOL-370 (76%);100ML BOTTLE 100 ML IV (15:08)
[2023-03-26] MEDS: SODIUM CHLORIDE 0.9% 10ML SYR (RAD ONLY) 10 ML IV (15:08)
[2023-03-26 15:15] LABS: Thyroid Stimulating Hormone 3.33 uIU/mL (0.465-4.68)
[2023-03-26 16:23] LABS: Microscopic, Urine URINE MICROSCOPIC (MICROSCOPIC)
--- NOTE | 2023-03-26 16:29 | PC.NURSE ---
DR MCGHEE SPEAKING WITH DR JONES
--- NOTE | 2023-03-26 16:35 | PC.NURSE ---
NAIL FEEDER NOTIFIED OF ADMISSION
[2023-03-26] MEDS: BUMETANIDE 1MG/4ML VIAL 1 MG IV (16:57)
[2023-03-26] MEDS: 0.9 % SODIUM CHLORIDE 1000ML 1,000 ML 999 ML IV (16:57)
--- NOTE | 2023-03-26 16:59 | HMH.EDGENADL ---
Discharge Plan Disposition Patient Disposition: Admitted Condition: Fair Clinical Impressions Clinical Impression: JASMINA (acute kidney injury), Physical deconditioning Acute exacerbation of CHF (congestive heart failure) Qualifiers: Heart failure type: unspecified Qualified Code(s): I50.9 - Heart failure, unspecified Discharge ED Provider: Gigi Torres I General Adult HPI General Chief complaint: Weakness Stated complaint: weak, falls Time Seen by Provider: 03/26/23 13:55 Mode of Arrival: EMS Source of Information: Patient, EMS and Medical Record Limitations: No Limitations Description of Symptoms (Recalled from ER Triage Doc. by RN): Pt c/o increasing weakness with difficulty ambulating. Pt was d/c from [facility] on Friday for falls/weakness. Family states his legs just give out . Pt has his first visit with Home Health yesterday and reportedly had several low BP's, daughter states 80/40s. Denies any SOA. Denies any fevers, chest pain, or abd pain. He has several skin abrasions to arms. Denies striking his head or LOC with recent falls. Denies being on any blood thinners. History of Present Illness HPI narrative: Patient is an 83-year-old female with history of CHF, physical deconditioning, CAD, prior CABG, hypertension, diabetes with multiple falls at home and recent admission, discharge from the hospital who is presenting also from home with recurrent falls. History was conducted with the patient as well as the daughter, granddaughter at bedside. Patient was recently admitted to the hospital for multiple falls, CHF exacerbation. Hospital medicine had recommended at that time that patient can go to a rehabilitation facility, however, family members declined at that time, stating that they wanted him to remain at home with them. He had previously been living by himself, and they are now living with him. Patient got up to go to the bathroom this morning when he tripped and fell, slumping against the wall. They do report that he has been compliant with his Eliquis. Patient states that he did not lose consciousness. He denies any shortness of breath, difficulty breathing, cough, congestion, runny nose. States that he has otherwise been eating and drinking well with normal urine and stool output. Denies any melena. Denies any numbness, tingling, weakness in the upper or lower extremities. Related Data Home Medications Medication Instructions Recorded Confirmed losartan 50 mg-hydrochlorothiazide 1 tab PO DAILY High Blood Pressure 03/21/23 03/22/23 12.5 mg tablet metformin 1,000 mg tablet 1,000 mg PO BID Diabetes 03/21/23 03/22/23 potassium chloride 20 mEq 20 meq PO DAILY Supplement 03/21/23 03/22/23 tablet,extended release(part/cryst) simvastatin 40 mg tablet 40 mg PO HS Cholesterol 03/21/23 03/22/23 Previous Rx's Medication Instructions Recorded apixaban 5 mg tablet (Eliquis) 5 mg PO BID 30 days #60 tabs 03/24/23 aspirin 81 mg chewable tablet 81 mg PO DAILY 30 days #30 tabs 03/24/23 bisoprolol fumarate 5 mg tablet 5 mg PO DAILY 30 days #30 tabs 03/24/23 insulin human U-100 NPH-regulr 60 unit (0.6 mL) SQ BID Diabetes 03/24/23 70-30 mix 100 unit/mL subcutaneous 30 days #0 mL susp (Novolin 70/30 U-100 Insulin) pantoprazole 40 mg tablet,delayed 40 mg PO HS 30 days #30 tabs 03/24/23 release Allergies Allergy/AdvReac Type Severity Reaction Status Date / Time codeine Allergy Verified 03/21/23 20:34 [facility] Disclaimer: The information contained in this section may have been updated after the patient was seen, as this information can be updated by other users. Medical History (Updated 03/26/23 @ 16:59 by Gigi Torres MD) Diabetes mellitus Hypertension Stroke Surgical History (Updated 03/21/23 @ 21:02 by Ramon Brasher APRN) Hx of CABG Family History (Updated 03/21/23 @ 20:33 by Jacquie Griggs RN) Other Diabetes Heart disease Social History (Updated 03/21/23 @ 20:28 by Jacquie Griggs RN) Smoking Status: Never smoker alcohol intake: never current occupational status: disabled Travel in the last 8 weeks: None ROS Obtained: Yes All systems reviewed & no additional complaints except as documented Physical Exam General General appearance: alert, in no apparent distress and other (Patient has diffuse pitting edema of the bilateral upper and lower extremities) Head Head exam: atraumatic and normocephalic ENT ENT exam: Present normal exam Neck Neck exam: Present full ROM Chest Chest inspection: Present normal inspection and symmetric chest wall rise Respiratory Respiratory exam: Present normal lung sounds bilaterally; Absent respiratory distress or accessory muscle use Cardiovascular Cardiovascular exam: Present regular rate and normal rhythm Abdominal Exam Abdominal exam: Present soft; Absent distention, tenderness, guarding or rebound Extremities Exam Extremities exam: Present normal inspection, full ROM and other (Patient has multiple skin tears of the upper and lower extremities) Neurological Exam Neurological exam: Present alert and oriented X3 Psychiatric Psychiatric exam: Present normal affect Skin Skin exam: Present warm, dry and intact Medical Decision Making Medical Records Medical records reviewed: Yes I reviewed the patient's medical records. Roddy Inquiry Pt receiving controlled substance: No Vital Signs: 03/26/23 13:53 03/26/23 15:31 03/26/23 16:01 Temperature 97.9 F Temperature Source Oral Pulse Rate 69 68 Pulse Rate [Right] 76 Respiratory Rate 22 19 19 Blood Pressure 108/46 L 106/52 L Blood Pressure [Right Arm] 137/101 H Blood Pressure Mean 66 70 Blood Pressure Mean [Right Arm] 113 Blood Pressure Source [Right Arm] Automatic Cuff 02 Sat by Pulse Oximetry 98 99 99 Oxygen Delivery Method Room Air Room Air Room Air Lab Data Lab results reviewed: Yes I reviewed the patient's lab results. Lab Results 03/26/23 13:50: WBC 7.6 D, RBC 2.98 L, Hgb 9.1 L, Hct 27.9 L, MCV 93.5, MCH 30.6, MCHC 32.7, RDW 15.6, Plt Count 104 L, MPV 10.7 H, Neut % (Auto) 63.0, Lymph % (Auto) 23.9, [place] % (Auto) 8.8, Eos % (Auto) 3.5, Baso % (Auto) 0.8, Neut # (Auto) 4.8, Lymph # (Auto) 1.8, [place] # (Auto) 0.7, Eos # (Auto) 0.3, Baso # (Auto) 0.1, PT 13.4 H, INR 1.26 H, Sodium 133 L, Potassium 3.5, Chloride 106, Carbon Dioxide 22, Anion Gap 8.5, BUN 28 H D, Creatinine 1.80 H D, Estimated Creat Clear 44, Estimated GFR 36 L, Est GFR ( Amer) 44 L D, Glucose 60 L, Calcium 7.6 L, Total Bilirubin 1.8 H, AST 71 H, ALT 44, Alkaline Phosphatase 101, Total Creatine Kinase 257 H D, NT-Pro-B Natriuret Pep 1220 H, Total Protein 6.0 L, Albumin 2.6 L, Globulin 3.4 H, Albumin/Globulin Ratio 0.8 L 03/26/23 14:30: Troponin I 0.03, TSH 3.33, Thyroxine (T4) 7.4 03/26/23 13:50 03/26/23 13:50 Orders (Tests/Meds): ED MEDICATIONS Generic Name Dose Route Start Last Admin Trade Name Freq PRN Reason Stop Dose Admin Bumetanide 1 mg 03/26/23 16:43 03/26/23 16:57 Bumetanide 1mg/4ml Vial IV 03/26/23 16:44 1 mg ONCE ONE Administration Discontinued Medications Generic Name Dose Route Start Last Admin Trade Name Freq PRN Reason Stop Dose Admin Sodium Chloride 1,000 mls @ 999 mls/hr 03/26/23 15:56 03/26/23 16:57 Sod Chlor 0.9% 1000ml Bag IV 03/26/23 16:56 999 mls/hr .Q1H1M ONE Administration Iopamidol 100 ml 03/26/23 14:58 03/26/23 15:08 Iopamidol-370 (76%);100ml Bottle IV 03/26/23 14:59 100 ml ONCE ONE Administration Sodium Chloride 50 ml 03/26/23 14:58 03/26/23 15:08 0.9 % Sodium Chloride 50 Ml Vial IV 03/26/23 14:59 50 ml ONCE ONE Administration Sodium Chloride 10 ml 03/26/23 14:58 03/26/23 15:08 Sodium Chloride 0.9% 10ml Syr (Rad Only) IV 03/26/23 14:59 10 ml ONCE ONE Administration ORDERS Category Date Time Status CT angio head Stat Cat Scan 03/26/23 14:[address] angio neck Stat Cat Scan 03/26/23 14:[address] cervical spine wo con Stat Cat Scan 03/26/23 14:[address] head/brain wo con Stat Cat Scan 03/26/23 14:28 Completed XR chest portable Stat Exams 03/26/23 14:30 Completed Brain Natriuretic Peptide Stat Lab 03/26/23 13:50 Completed Complete Blood Count Auto Diff AMLAB Lab 03/27/23 06:00 Ordered Complete Blood Count Auto Diff Stat Lab 03/26/23 13:50 Completed Comprehensive Metabolic Panel AMLAB Lab 03/27/23 06:00 Ordered Comprehensive Metabolic Panel Stat Lab 03/26/23 13:50 Completed Creatine Kinase Stat Lab 03/26/23 13:50 Completed Magnesium AMLAB Lab 03/27/23 06:00 Ordered Prothrombin Time INR Stat Lab 03/26/23 13:50 Completed T4 (Thyroxine) Stat Lab 03/26/23 14:30 Completed Thyroid Stimulating Hormone Stat Lab 03/26/23 14:30 Completed Troponin I Q3H Lab 03/26/23 17:30 Ordered Troponin I Q3H Lab 03/26/23 20:30 Ordered Troponin I Stat Lab 03/26/23 14:30 Completed UA [Urinalysis and Microscopic] Stat Lab 03/26/23 16:18 Received ECG initial [place] Routine Y 03/26/23 14:39 Completed HEART Score History (anamnesis): Slightly suspicious ECG: Normal Age: >65 years Risk factors: 3 or more risk factors Troponin: </= normal limit HEART Score: 4 Medical Decision Narrative: Patient is an 83-year-old female with history of CHF, physical deconditioning, CAD, prior CABG, hypertension, diabetes with multiple falls at home and recent admission, discharge from the hospital who is presenting also from home with recurrent falls. Patient was hemodynamically stable, saturating well room air, afebrile and nontoxic-appearing on arrival to the emergency department. On physical exam, patient has pitting edema of the bilateral upper and lower extremities. Abdomen is soft and nontender. Patient is weaker in the bilateral lower extremities but is moving them appropriately, can lift them off of the bed. Pupils are equal and reactive bilaterally. Daughter did mention that patient had a brief episode of possible slurred speech, but states that he is currently at his mental baseline. Differential diagnosis includes deconditioning, electrolyte derangement, JASMINA, CHF exacerbation, acute intracranial abnormality, stroke, rhabdomyolysis. Given this, workup includes CMP, CBC with differential, BNP, EKG, troponin, CT head without contrast, thyroid studies, CT imaging of the head, neck. Laboratory workup is notable for creatinine of 1.80 compared to previous several days ago of 1.20. CK is improving compared to prior. Patient does have an elevated BNP of 1220. Thyroid studies are ultimately unremarkable. CT imaging which I personally reviewed and interpreted demonstrated no evidence of acute intracranial normality. CT imaging demonstrated no evidence of acute dissection, clot contributing to patient's recent fall. EKG demonstrated normal sinus rhythm, no ST changes that would be concerning for underlying ischemia. Given that patient has deconditioning, JASMINA, will likely require additional admission to the hospital. Discussed with hospital medicine. Following interactive discussion and consultation with hospital medicine, advised to administer 1 mg IV Bumex, which was given and patient was admitted to the hospital. Further workup and management per admitting team. Critical Care Critical Care Time Critical Care Time: No
[2023-03-26 17:09] LABS: Appearance,Urine CLEAR (Clear); Blood, Urine Negative (Negative); Color,Urine DARK YELLOW (Yellow); Glucose,Urine (UA) TRACE (Negative); Ketones,Urine Negative (Negative); Leukocyte Esterase,Urine 2+ (Negative); Nitrate,Urine Negative (Negative); PH,Urine 5.5 (5.0-8.5); Protein,Urine 1+ (Negative)
[2023-03-26 17:17] LABS: Bilirubin,Urine 1+ (Negative)
--- NOTE | 2023-03-26 17:42 | PC.WOUNDNOTE ---
TOP OF LEFT KNEE SIDE OF LEFT KNEE LEFT ELBOW
--- NOTE | 2023-03-26 18:35 | PC.NURSE ---
A&OX4. TOLERATING RA WELL. FAMILY AT BEDSIDE. PT HAS ABRASIONS TO L ELBOW AND L KNEE. PICTURES ON CHART. PT HAS HAD NO NEEDS OR C/O SINCE ARRIVAL TO FLOOR. VSS.
[2023-03-26 18:38] LABS: Troponin I 0.03 ng/ml (0.00-0.034)
--- NOTE | 2023-03-26 20:08 | PC.NURSE ---
Family gave patient his night medication except for insulin. Family thought they had to give medication to family to prevent charges. Family was educated on medication administration policy. Patients medication was taken and placed in patient bin, will pass along to morning shift that medications need to be sent to pharmacy for proper barcode scanning. Patient has home insulin (Novilin 70/30) placed in medication fridge.
--- NOTE | 2023-03-26 20:18 | EXP.HP ---
History of Present Illness *Admission Date: 03/26/23 *Reason for visit:: Weakness, fall and low BP *History of present illness: This is a 83-year-old male with PMHx of recent diagnose of afib started on eliquis, CHF, CAD, prior CABG, hypertension, diabetes with multiple falls at home, recently discharged from the hospital who is presenting also from home with recurrent falls. History was obatained from patient and POA at bedside. during last admission physical evaluation recommended short term rehab placement for continuation of the recovery and therapies. Family refused and decided to go home with HH instead. Yesterday morning he tripped and fell, slumping against the wall, while attempting to walk to the bathroom. They do report that he has been compliant with his Eliquis. Patient states that he did not lose consciousness. He denies any shortness of breath, difficulty breathing, cough, congestion, runny nose. States that he has otherwise been eating and drinking well with normal urine and stool output. Denies any melena. Denies any numbness, tingling, weakness in the upper or lower extremities. Admitted. [facility] Disclaimer: The information contained in this section may have been updated after the patient was seen, as this information can be updated by other users. Medical History (Updated 03/26/23 @ 22:38 by Ramon Brasher APRN) Diabetes mellitus Hypertension Stroke Surgical History Hx of CABG Family History Diabetes Heart disease Social History (Updated 03/26/23 @ 17:19 by Daisha Givens RN) Smoking Status: Never smoker alcohol intake: never current occupational status: disabled Travel in the last 8 weeks: None Review of Systems Review of Systems Review of systems:: pertinent systems reviewed and negative unless documented below Meds Home Medications and Allergies Home Medications Medication Instructions Recorded Confirmed Type losartan 50 mg-hydrochlorothiazide 1 tab PO DAILY High Blood Pressure 03/21/23 03/26/23 History 12.5 mg tablet metformin 1,000 mg tablet 1,000 mg PO BID Diabetes 03/21/23 03/26/23 History potassium chloride 20 mEq 20 meq PO DAILY Supplement 03/21/23 03/26/23 History tablet,extended release(part/cryst) simvastatin 40 mg tablet 40 mg PO HS Cholesterol 03/21/23 03/26/23 History apixaban 5 mg tablet (Eliquis) 5 mg PO BID 30 days #60 tabs 03/24/23 03/26/23 Rx aspirin 81 mg chewable tablet 81 mg PO DAILY 30 days #30 tabs 03/24/23 03/26/23 Rx bisoprolol fumarate 5 mg tablet 5 mg PO DAILY 30 days #30 tabs 03/24/23 03/26/23 Rx insulin human U-100 NPH-regulr 60 unit (0.6 mL) SQ BID Diabetes 03/24/23 03/26/23 Rx 70-30 mix 100 unit/mL subcutaneous 30 days #0 mL susp (Novolin 70/30 U-100 Insulin) pantoprazole 40 mg tablet,delayed 40 mg PO HS 30 days #30 tabs 03/24/23 03/26/23 Rx release Darlin's wort 300 mg capsule 300 mg PO DAILY 03/26/23 03/26/23 History uobfuouwhknr-ayjcdypx-zayaec tablet 1 tab PO DAILY 03/26/23 03/26/23 History vitamin B complex 1 tab PO DAILY 03/26/23 03/26/23 History New Prescriptions to Start Prescriptions: Allergies Allergy/AdvReac Type Severity Reaction Status Date / Time codeine Allergy Verified 03/21/23 20:34 Exam Data for Last 24 hours Vital signs and Labs for Last 24 Hours: Temp Pulse Resp BP Pulse Ox O2 Del Method 99.7 F H 69 18 103/52 L 92 L Room Air 03/26/23 17:22 03/26/23 17:22 03/26/23 17:22 03/26/23 17:22 03/26/23 17:22 03/26/23 18:32 Laboratory Results - last 24 hr 03/26/23 13:50: WBC 7.6 D, RBC 2.98 L, Hgb 9.1 L, Hct 27.9 L, MCV 93.5, MCH 30.6, MCHC 32.7, RDW 15.6, Plt Count 104 L, MPV 10.7 H, Neut % (Auto) 63.0, Lymph % (Auto) 23.9, [place] % (Auto) 8.8, Eos % (Auto) 3.5, Baso % (Auto) 0.8, Neut # (Auto) 4.8, Lymph # (Auto) 1.8, [place] # (Auto) 0.7, Eos # (Auto) 0.3, Baso # (Auto) 0.1, PT 13.4 H, INR 1.26 H, Sodium 133 L, Potassium 3.5, Chloride 106, Carbon Dioxide 22, Anion Gap 8.5, BUN 28 H D, Creatinine 1.80 H D, Estimated Creat Clear 44, Estimated GFR 36 L, Est GFR ( Amer) 44 L D, Glucose 60 L, Calcium 7.6 L, Total Bilirubin 1.8 H, AST 71 H, ALT 44, Alkaline Phosphatase 101, Total Creatine Kinase 257 H D, NT-Pro-B Natriuret Pep 1220 H, Total Protein 6.0 L, Albumin 2.6 L, Globulin 3.4 H, Albumin/Globulin Ratio 0.8 L 03/26/23 14:30: Troponin I 0.03, TSH 3.33, Thyroxine (T4) 7.4 03/26/23 16:18: Urine Color Dark yellow, Urine Appearance Clear, Urine pH 5.5, Ur Specific [place] 1.020, Urine Protein 1+, Urine Glucose (UA) Trace, Urine Ketones Negative, Urine Blood Negative, Urine Nitrate Negative, Urine Bilirubin 1+ A, Urine Urobilinogen 2.0, Ur Leukocyte Esterase 2+ A, Urine RBC 3-5, Urine WBC 5-10, Ur Squamous Epith Cells 3-5, Urine Bacteria None 03/26/23 17:45: Troponin I 0.03 I & O for Last 24 hours: Intake & Output 03/23/23 03/24/23 03/25/23 03/26/23 23:59 23:59 23:59 23:59 Intake Total 270 / 270 Balance 270 / 270 Weight 97.154 kg Constitutional Constitutional: no acute distress and cooperative *Routine HEENT Exam Head: Present normocephalic and atraumatic Eye: Present EOMI, PERRL and normal accommodation ENT: Present mucous membranes moist *Routine Neck Exam Neck: Present supple, full ROM and trachea midline; Absent carotid bruit *Routine Respiratory Exam Respiratory: Present normal respiratory effort, able to speak in complete sentences and symmetric chest movement; Absent rales *Routine Cardiovascular Exam Cardiovascular: Present Normal S2 and irregularly irregular *Routine Abdominal Exam Abdominal: Present soft, normoactive bowel sounds and obese; Absent organomegaly *Routine Rectal Exam Rectal:: deferred *Routine Genitalia Exam Genitalia:: deferred *Routine Extremities Exam Extremities: Present edema, full ROM and pulses intact; Absent cyanosis or clubbing *Routine Skin Exam Skin: Present intact, dry and warm *Routine Neurological Exam Neurological: Present alert, oriented X3, normal reflexes and moving all extremities Routine Psychiatric Exam Psychiatric: Present normal thought process, cooperative and good judgment H&P: Result Imaging and Cardiology Chest x-ray: Status: image reviewed by me, Preliminary report and final report EKG: Status: image reviewed by me and Preliminary report CT scan - head: Status: image reviewed by me, Preliminary report and final report CTA neck : Status: image reviewed by me, Preliminary report and final report Assessment and Plan *Assessment and plan (1) Acute kidney injury: Status: Acute Category: Medical Code(s): N17.9 - Acute kidney failure, unspecified (2) ICAO (internal carotid artery occlusion): Status: Acute Qualifiers: Laterality: right Qualified Code(s): I65.21 - Occlusion and stenosis of right carotid artery Category: Medical Code(s): I65.29 - Occlusion and stenosis of unspecified carotid artery (3) Fall at home: Status: Acute Qualifiers: Encounter type: initial encounter Qualified Code(s): W19.XXXA - Unspecified fall, initial encounter; Y92.009 - Unspecified place in unspecified non-institutional (private) residence as the place of occurrence of the external cause Category: Medical Code(s): W19.XXXA - Unspecified fall, initial encounter; Y92.009 - Unspecified place in unspecified non-institutional (private) residence as the place of occurrence of the external cause (4) Afib: Status: Acute Qualifiers: Atrial fibrillation type: unspecified Qualified Code(s): I48.91 - Unspecified atrial fibrillation Category: Medical Code(s): I48.91 - Unspecified atrial fibrillation (5) Elevated brain natriuretic peptide (BNP) level: Status: Acute Category: Medical Code(s): R79.89 - Other specified abnormal findings of blood chemistry (6) Hypertension: Status: Acute Qualifiers: Hypertension type: unspecified Qualified Code(s): I10 - Essential (primary) hypertension Category: Medical Code(s): I10 - Essential (primary) hypertension (7) Diabetes mellitus: Status: Acute Qualifiers: Diabetes mellitus complication status: with other specified complication Diabetes mellitus intermediate manager insulin use: with intermediate manager use Diabetes mellitus type: type 2 Qualified Code(s): E11.69 - Type 2 diabetes mellitus with other specified complication; Z79.4 - longterm (current) use of insulin Category: Medical Code(s): E11.9 - Type 2 diabetes mellitus without complications (8) CAD (coronary artery disease): Status: Acute Qualifiers: Associated angina: without angina Coronary Disease-Associated Artery/Lesion type: unspecified vessel or lesion type [place] vs. transplanted heart: [place] heart Qualified Code(s): I25.10 - Atherosclerotic heart disease of [place] coronary artery without angina pectoris Category: Medical Code(s): I25.10 - Atherosclerotic heart disease of [place] coronary artery without angina pectoris (9) Fracture of great toe of right foot: Status: Acute Qualifiers: Encounter type: sequela Fracture alignment: nondisplaced Fracture type: closed Phalanx: proximal Qualified Code(s): S92.414S - Nondisplaced fracture of proximal phalanx of right great toe, sequela Category: Medical Code(s): S92.401A - Displaced unspecified fracture of right great toe, initial encounter for closed fracture Plan 83-year-old male with PMHx of recent diagnose of afib started on eliquis, CHF, CAD, prior CABG, hypertension, diabetes with multiple falls at home, recently discharged from the hospital who is presenting also from home with recurrent falls. CT of the head was obtained and does not showed acute intracraneal process, CTA is conclusive for a mild stenosis of the carotid, along with the proximal and distal vertebral arteries. no acute ischemic changes seen. After discussion made with ER, we were agreed for readmission. Plans as follow: - JASMINA: stable elevated creatinine. Continue monitoring avoid nephrotoxic meds. 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 ECHO reviewed. monitor for fluid overload or dyspnea -Others chronic conditons: IDDM: obtain A1c Accucheck before meals sliding scale diabetic diet HTN, CAD s/p CAGB., HLD: on statin, aspirin, and losartan HTCZ. reconciled -Avulsion fracture of the base of the 1st proximal phalanx. No additional fracture or dislocation. Seen by Rn Hyperbaric no interventions needed continue monitoring recommended full weight baring SCD DVT ppx. On protonix for gi ppx Full code Rounded on patient after nurse practitioner. Personally examined and interviewed patient. Agree with exam findings and care plan as documented.
[2023-03-26 20:35] LABS: POC Glucose,Bedside 129 (70-110)
[2023-03-26 20:44] LABS: Troponin I 0.03 ng/ml (0.00-0.034)
[2023-03-26] MEDS: humaLOG MIX 75/25 3ML FLEXPEN 40 UNIT SQ (20:56)
[2023-03-27] MEDS: guaiFENesin 200MG/10ML SYRUP UDC 200 MG PO ×2 (00:27→17:59)
--- NOTE | 2023-03-27 00:30 | PC.NURSE ---
Patient c/o cough. Cough sounds wet but no productive sputum. Patient requested some cough medications. Krish, [employer] notified and orders received- see MAR. Medication administered and patient assisted to sit in chair.
[2023-03-27 04:00] VITALS: BP 104/40; PULSE 77; RESP 18; TEMP 37.3; O2SAT 97; BMI 33.3
--- NOTE | 2023-03-27 05:00 | PC.NURSE ---
Patient has not rested well this shift, unable to lay down in bed due to excessive coughing when he does. Family requested to talk to Krish, BIOINFORMATICS ENGINEER with concerns of patients cough. Krish reviewed patients labs and xray finding with family. New orders for a one time dose of Bumex received, and order for cefepime received (see JUN). Patient c/o feeling tired and exhausted. Orthostatic blood pressures was obtained and found to be negative. Patient has used walker to bathroom with assist of one. Bandage to left elbow was changed due to being soiled with blood, alginate placed with tegaderm to help with drainage. Patient is up to chair at this time. Continue plan of care and medsurg protocols. Call reyes, bedside table, water pitcher, and personal belongings in reach.
[2023-03-27] MEDS: CEFEPIME HCL 1 GM in 0.9 % SODIUM CHLORIDE 50 ML IV (05:15)
[2023-03-27] MEDS: BUMETANIDE 1MG/4ML VIAL 1 MG IV (05:15)
--- NOTE | 2023-03-27 06:13 | PC.NURSE ---
at 0600 finger stick was 49, patient is tired but responsive to voice. 120ml of orange juice given to patient. Will recheck in 15 minutes.
[2023-03-27 06:29] LABS: Basophils % 0.2 % (0.1-2.0); Eosinophils # 0.1 K/mm3 (0.0-0.4); Eosinophils % 2.1 % (0.1-12.0); Hematocrit 26.3 % (42.0-52.0); Lymphocytes # 1.2 K/mm3 (0.7-4.5); Lymphocytes % 19.5 % (10-50); Mean Corpuscular HGB Conc 34.1 g/dL (31.8-35.4); Mean Corpuscular Hemoglobin 31.5 pg (27.0-31.2); Mean Corpuscular Volume 92.3 fl (80-94); Mean Platelet Volume 9.6 fl (7.4-10.4); Monocytes # 0.4 K/mm3 (0.1-1.0); Monocytes % 6.9 % (1.7-9.3); Neutrophils # 4.6 K/mm3 (1.8-7.8); Neutrophils % 71.4 % (37.0-80.0); Platelet Count 82 K/mm3 (142-424); Red Blood Count 2.85 M/mm3 (4.60-6.20); Red Cell Distribution Width 15.8 % (11.5-17.5); White Blood Count 6.4 K/mm3 (4.8-10.8)
[2023-03-27 06:35] LABS: Chloride 107 mmol/L (98-107)
[2023-03-27 06:36] LABS: Potassium 3.5 mmoL/L (3.5-5.1); Sodium 133 mmol/L (136-145)
[2023-03-27 06:38] LABS: Alanine Aminotransferase 42 U/L (12-78); Alkaline Phosphatase 100 U/L (38-126); Anion Gap 10.5 mEq/L (5-15); Aspartate Amino Transferase 62 U/L (17-59); Bilirubin,Total 1.9 mg/dl (0.2-1.3); Blood Urea Nitrogen 30 mg/dl (9-20); Carbon Dioxide 19 mmol/L (22.0-30.0); Creatinine Clearance Estimated 36 mL/min (50-200); Estimated Glomerular Filt Rate 30 ml/min (>60); GFR (African American) 37 ML/MIN (>60)
[2023-03-27 06:39] LABS: Albumin Level 2.6 g/dl (3.5-5.0); Albumin/Globulin Ratio 0.8 (1.1-1.8); Calcium 7.6 mg/dl (8.4-10.2); Globulin 3.3 g/dL (1.3-3.2); Glucose 51 mg/dl (74-100); Magnesium 1.7 mg/dl (1.6-2.3); Total Protein,Serum 5.9 g/dl (6.3-8.2)
--- NOTE | 2023-03-27 06:42 | PC.NURSE ---
FSBS recheck 85
[2023-03-27 06:48] LABS: POC Glucose,Bedside 85 (70-110)
--- NOTE | 2023-03-27 07:35 | HMH.PHAINT1 ---
Pharmacy Intervention Comments: MEDICATION RECONCILIATION COMPLETED ON PATIENT USING EXTERNAL FILL HISTORY FROM PHARMACY AND DISCHARGE SUMMARY FROM PREVIOUS ADMISSION. -JIMBO SANCHEZ, TOPHERD
[2023-03-27 08:00] VITALS: BP 103/51; PULSE 76; RESP 19; O2SAT 100
[2023-03-27] MEDS: PT OWN MED *BISOPROLOL 5 MG TAB 1 EACH PO (08:31)
[2023-03-27] MEDS: APIXABAN 5MG TABLET 2.5 MG PO ×2 (08:31→20:43)
[2023-03-27] MEDS: LACTATED RINGERS 1000ML 1,000 ML 75 ML IV (09:26)
--- NOTE | 2023-03-27 09:45 | P.CONCA_ITS ---
History of Present Illness History of Present Illness Consult date: 03/27/23 Requesting physician: Alin Newman Consult reason: hypotension Chief complaint: Fall History of present illness: 83-year-old white male with past medical history of insulin-dependent diabetes mellitus, coronary artery disease status post CABG, hyperlipidemia, new diagnosis of paroxysmal atrial fibrillation on Eliquis and recent falls, pre sented to hospital with complaints of a fall yesterday morning when going to the bathroom. Patient reports he was going to the bathroom when he tripped and slumped over against a wall. Patient denies actually falling to the ground or hitting head. Patient was recently admitted and discharged from hospital for a fall, acute kidney injury, rhabdomyolysis, and new onset A-fib. During last hospitalization patient achieved rate control with beta-blockers and was started on Eliquis and discharged home with a holter monitor in place. At time of discharge, hospital medicine did recommend that patient go to a rehab facility, however, patient and family members declined. Patient reports he was doing well until this episode. Denies any chest pain, shortness of breath or dizziness prior to event. Laboratory workup showed a creatinine of 1.8 which is worse from prior discharge. CK has improved compared to prior. EKG showed afib rate controlled with no ST changes that would be concerning for underlying ischemia. Head CT was negative for significant stenosis or major branch occlusion. Neck CTA shows calcified plaque at the carotid bifurcations, mild stenosis of the proximal right ICA and mild stenosis of the distal right vertebral artery. Patient was given Bumex 1mg IV in ER for lower extremity edema and admitted for JASMINA. Of note, patient was hypoglycemic this morning with a fingerstick in the 40s. There is a concern that patient is experiencing hypoglycemic events at home which may be contributing to generalized weakness. Orthostatic vital signs were performed last night and were negative. This morning patient is sitting up in chair eating. He denies any chest pain, shortness of breath, dizziness. [facility] Disclaimer: The information contained in this section may have been updated after the patient was seen, as this information can be updated by other users. Medical History (Updated 03/26/23 @ 22:38 by Ramon Brasher APRN) Diabetes mellitus Hypertension Stroke Surgical History Hx of CABG Family History Other Diabetes Heart disease Social History (Updated 03/26/23 @ 17:19 by Daisha Givens, RN) Smoking Status: Never smoker alcohol intake: never current occupational status: disabled Travel in the last 8 weeks: None Review of Systems Review of Systems Review of systems:: pertinent systems reviewed and negative unless documented below Constitutional Comments: Generalized weakness Exam Data for Last 24 hours Vital signs and Labs for Last 24 Hours: Temp Pulse Resp BP Pulse Ox O2 Del Method O2 Flow Rate 99.1 F 76 19 103/51 L 100 Nasal Cannula 2 03/27/23 04:00 03/27/23 08:00 03/27/23 08:00 03/27/23 08:00 03/27/23 08:00 03/27/23 08:39 03/27/23 08:39 Laboratory Results - last 24 hr 03/26/23 13:50: WBC 7.6 D, RBC 2.98 L, Hgb 9.1 L, Hct 27.9 L, MCV 93.5, MCH 30.6, MCHC 32.7, RDW 15.6, Plt Count 104 L, MPV 10.7 H, Neut % (Auto) 63.0, Lymph % (Auto) 23.9, [place] % (Auto) 8.8, Eos % (Auto) 3.5, Baso % (Auto) 0.8, Neut # (Auto) 4.8, Lymph # (Auto) 1.8, [place] # (Auto) 0.7, Eos # (Auto) 0.3, Baso # (Auto) 0.1, PT 13.4 H, INR 1.26 H, Sodium 133 L, Potassium 3.5, Chloride 106, Carbon Dioxide 22, Anion Gap 8.5, BUN 28 H D, Creatinine 1.80 H D, Estimated Creat Clear 44, Estimated GFR 36 L, Est GFR ( Amer) 44 L D, Glucose 60 L, Calcium 7.6 L, Total Bilirubin 1.8 H, AST 71 H, ALT 44, Alkaline Phosphatase 101, Total Creatine Kinase 257 H D, NT-Pro-B Natriuret Pep 1220 H, Total Protein 6.0 L, Albumin 2.6 L, Globulin 3.4 H, Albumin/Globulin Ratio 0.8 L 03/26/23 14:30: Troponin I 0.03, TSH 3.33, Thyroxine (T4) 7.4 03/26/23 16:18: Urine Color Dark yellow, Urine Appearance Clear, Urine pH 5.5, Ur Specific [place] 1.020, Urine Protein 1+, Urine Glucose (UA) Trace, Urine Ketones Negative, Urine Blood Negative, Urine Nitrate Negative, Urine Bilirubin 1+ A, Urine Urobilinogen 2.0, Ur Leukocyte Esterase 2+ A, Urine RBC 3-5, Urine WBC 5-10, Ur Squamous Epith Cells 3-5, Urine Bacteria None 03/26/23 17:45: Troponin I 0.03 03/26/23 20:10: POC Glucose 129 H 03/26/23 20:20: Troponin I 0.03 03/27/23 05:56: WBC 6.4, RBC 2.85 L, Hgb 9.0 L, Hct 26.3 L, MCV 92.3, MCH 31.5 H , MCHC 34.1, RDW 15.8, Plt Count 82 L, MPV 9.6, Neut % (Auto) 71.4, Lymph % (Auto) 19.5, [place] % (Auto) 6.9, Eos % (Auto) 2.1, Baso % (Auto) 0.2, Neut # (Auto) 4.6, Lymph # (Auto) 1.2, [place] # (Auto) 0.4, Eos # (Auto) 0.1, Baso # (Auto) 0.0, Sodium 133 L, Potassium 3.5, Chloride 107, Carbon Dioxide 19 L, Anion Gap 10.5, BUN 30 H, Creatinine 2.10 H, Estimated Creat Clear 36, Estimated GFR 30 L, Est GFR ( Amer) 37 L, Glucose 51 L, Calcium 7.6 L, Magnesium 1.7, Total Bilirubin 1.9 H, AST 62 H, ALT 42, Alkaline Phosphatase 100, Total Protein 5.9 L, Albumin 2.6 L, Globulin 3.3 H, Albumin/Globulin Ratio 0.8 L 03/27/23 06:34: POC Glucose 85 I & O for Last 24 hours: Intake & Output 03/24/23 03/25/23 03/26/23 03/27/23 23:59 23:59 23:59 23:59 Intake Total 270 / 630 600 / 600 Output Total 100 / 550 450 / 450 Balance 170 / 80 150 / 150 Weight 214 lb 3 oz 212 lb 7.175 oz Constitutional Constitutional: no acute distress *Routine Respiratory Exam Respiratory: Present CTA bilaterally and symmetric chest movement *Routine Cardiovascular Exam Cardiovascular: Present RRR, Normal S1 and Normal S2 *Routine Abdominal Exam Abdominal: Present soft and normoactive bowel sounds; Absent tenderness *Routine Extremities Exam Extremities: Present full ROM and normal capillary refill; Absent edema Comments: Mild bilateral lower extremity edema noted *Routine Skin Exam Skin: Present intact, dry and warm Detailed Neck Exam: Thyroids Thyroid: Absent bruit Meds Home Medications and Allergies Home Medications Medication Instructions Recorded Confirmed Type losartan 50 mg-hydrochlorothiazide 1 tab PO DAILY High Blood Pressure 03/21/23 03/26/23 History 12.5 mg tablet metformin 1,000 mg tablet 1,000 mg PO BID Diabetes 03/21/23 03/26/23 History potassium chloride 20 mEq 20 meq PO DAILY Supplement 03/21/23 03/26/23 History tablet,extended release(part/cryst) simvastatin 40 mg tablet 40 mg PO HS Cholesterol 03/21/23 03/26/23 History apixaban 5 mg tablet (Eliquis) 5 mg PO BID 30 days #60 tabs 03/24/23 03/26/23 Rx aspirin 81 mg chewable tablet 81 mg PO DAILY 30 days #30 tabs 03/24/23 03/26/23 Rx bisoprolol fumarate 5 mg tablet 5 mg PO DAILY 30 days #30 tabs 03/24/23 03/26/23 Rx insulin human U-100 NPH-regulr 60 unit (0.6 mL) SQ BID Diabetes 03/24/23 03/26/23 Rx 70-30 mix 100 unit/mL subcutaneous 30 days #0 mL susp (Novolin 70/30 U-100 Insulin) pantoprazole 40 mg tablet,delayed 40 mg PO HS 30 days #30 tabs 03/24/23 03/26/23 Rx release [place]'s wort 300 mg capsule 300 mg PO DAILY Supplement 03/26/23 03/27/23 History zjeonrpmbuhr-gquvqpge-nafgiw tablet 1 tab PO DAILY Supplement 03/26/23 03/27/23 History vitamin B complex 1 tab PO DAILY Supplement 03/26/23 03/27/23 History New Prescriptions to Start Prescriptions: Allergies Allergy/AdvReac Type Severity Reaction Status Date / Time codeine Allergy Verified 03/21/23 20:34 Assessment and Plan *Assessment and plan (1) ICAO (internal carotid artery occlusion): Status: Acute Qualifiers: Laterality: right Qualified Code(s): I65.21 - Occlusion and stenosis of right carotid artery Category: Medical Code(s): I65.29 - Occlusion and stenosis of unspecified carotid artery (2) JASMINA (acute kidney injury): Status: Acute Category: Medical Code(s): N17.9 - Acute kidney failure, unspecified (3) Afib: Status: Acute Qualifiers: Atrial fibrillation type: unspecified Qualified Code(s): I48.91 - Unspe cified atrial fibrillation Category: Medical Code(s): I48.91 - Unspecified atrial fibrillation (4) CAD (coronary artery disease): Status: Acute Qualifiers: Associated angina: without angina Coronary Disease-Associated Artery/Lesion type: unspecified vessel or lesion type [place] vs. transplanted heart: [place] heart Qualified Code(s): I25.10 - Atherosclerotic heart disease of [place] coronary artery without angina pectoris Category: Medical Code(s): I25.10 - Atherosclerotic heart disease of [place] coronary artery without angina pectoris Plan Fall at home/Generalized weakness JASMINA Recent Rhabdomyolysis Hypoglycemia -Creatinine 2.10 -CK improved from last admission -Continue gentle fluids -Chest x-ray shows a left base atelectasis or pneumonia -Orthostatic vital signs negative -Hypoglycemia noted this morning, primary service is adjusting meds -Normal TSH noted, morning cortisol level pending PAFCHadsvasc score 5 -Currently afib rate controlled -Continue Eliquis renal dose 2.5 mg p.o. twice daily -Decrease bisoprolol to 2.5 mg p.o. daily due to weakness -Echocardiogram 03/24: Normal LV systolic function, mildly dilated RV with mild reduction in RV systolic function. Mild TR. -Patient finished Holter monitor yesterday, unofficial read shows PAF, official read is pending. Hx of Right sided heart Failure -Patient currently denies any chest pain or shortness of breath. Mild bilateral lower extremity edema is noted. -Given current JASMINA that worsened after Bumex and generalized weakness would avoid heavy diuresis at this time. Recommend compression stockings for lower extremity edema. Initiate diuretics if patient becomes short of breath. Right mild stenosis of the ICA and vertebral arteries with Hx of recurrent fall: -Neck CTA shows calcified plaque at the right carotid bifurcation, mild stenosis of the proximal right ICA, mild stenosis of the distal right vertebral artery -Carotid ultrasound pending -Continue aspirin 81 mg p.o. daily and high-dose statin Coronary artery disease History of CABG Acute myocardial injury -Troponin negative on admisison -EKG is negative for acute ischemic changes -Recommend outpatient stress testing to further evaluate given patient denies symptoms of chest pain or shortness of breath currently. CV summary 03/27/2023: Recommend holding diuretics at this time due to jasmina, gentle hydration. Carotid ultrasound pending. Decrease bisoprolol to 2.5 mg p.o. daily.
--- NOTE | 2023-03-27 10:01 | HMH.OTEV ---
OT Inpatient Evaluation Rehab OT IP Evaluation Start: 03/26/23 16:31 Freq: ONCE Status: Active Protocol: [facility]27/23 09:[facility] (Rec: 03/27/23 10:01 [facility] [id number]) Rehab OT IP Assessment Subjective History Pt oriented x 3 on arrival. Pt's family present during therapy evaluation. Pt admitted on 03/26/23 due to fall at home and CHF exacerbation. This is a 83- year-old male with PMHx of recent diagnose of afib started on eliquis, CHF, CAD, prior CABG, hypertension, diabetes with multiple falls at home, recently discharged from the hospital who is presenting also from home with recurrent falls. History was obatained from patient and POA at bedside. during last admission physical evaluation recommended short term rehab placement for continuation of the recovery and therapies. Family refused and decided to go home with HH instead. Yesterday morning he tripped and fell, slumping against the wall, while attempting to walk to the bathroom. Prior to being in the hosptial , pt lived with granddaughter pt normally requires assistance with dressing and bathing. Pt is able to feed himself. Pt is dependent upon family for completion all IADLs. Pt uses a rolling walker during functional transfers. Subjective I am not going anywhere for rehab. Objective Patient Orientation Person,Place,Birthday Right Upper Extremity Gross ROM WFL Left Upper Extremity Gross ROM WFL Transfer Training Sit/Stand Transfer Assist Level Minimal x 1 (25% assist) Chair Transfer Ability Minimal x 1 (25% assist) Chair Transfer Technique Sit to/from Ambulatory Chair Transfer Assistive Devices Rolling Walker Rehab OT IP prob,goals,plan Problems Date of Evaluation: 03/27/23 OT IP Problems Bed Mobility,Transfers,Balance ,Self care,Safety Rehab Potential Rehab Potential Good Equipment Needs Assistive Devices Rolling / Wheeled Walker Plan OT intervention Plan Bed Mobility,Transfers,Balance ,Self care,Safety,Therapeutic Exercise OT Plan Frequency BID Duration LOS Discharge Goals Bed Mobility Ability Standby Assistance Sit to Stand Chair Transfer Ability Contact Guard/Hand Hold Chair Transfer Ability Contact Guard/Hand Hold Chair Transfer Technique Sit to/from Ambulatory Chair Transfer Assistive Devices Rolling Walker Feeding Ability Assist with Tray Set Up Lower Body Dressing Ability Moderate Assistance Upper Body Dressing Ability Minimal Assistance Bathing Ability Moderate Assistance Performing Toilet Hygiene Ability Minimal Assistance Overall Commode/Toilet Transfer Ability Minimal Assistance Commode/Toilet Transfer Technique Sit to/from Ambulatory Oral Care Assist Minimal Assistance Decrease in Endurance Yes Discharge Plan OT Discharge Plan Pt will continue to be seen for OT services while at [facility]. Therapist recommends short term rehab at SNF due to continued falls and increased risk for fx's. However, pt and family are adamant about him returning home with granddaughter. If he continues to refuse placement therapist recommends continued home health therapy upon returning home. Eval Complexity Eval Charge Codes 39966 - Moderate Complexity PHYSICIAN CERTIFICATION: I certify the specified therapy services for David Martinez are required, authorized, and reviewed every 30 days.
--- NOTE | 2023-03-27 10:07 | EXP.ACUTE.PN ---
Subjective *Date: 03/27/23 *Time: 18:34 Interval history: Patient sitting in bedside chair on exam this morning. Son at bedside. Patient stable on room air. No nausea or vomiting. Ate breakfast. Had response to diuretic but unfortunately kidney function worsened somewhat with creatinine at 2.1 this morning. Denies chest pain, confusion. Requiring assistance to ambulate. PT working with patient today. Medical Exam Vital signs and Labs for Last 24 Hours: Vital Signs Temp Pulse Pulse Pulse Pulse Pulse Resp 03/27/23 08:39 03/27/23 08:00 03/27/23 08:00 76 19 03/27/23 04:00 99.1 F 77 18 03/26/23 23:02 73 74 81 03/26/23 20:00 97.7 F 70 19 03/26/23 18:32 03/26/23 17:39 03/26/23 17:15 03/26/23 17:22 99.7 F H 69 18 03/26/23 17:07 98.1 F 71 20 03/26/23 16:01 68 19 03/26/23 15:31 69 19 03/26/23 13:53 97.9 F 76 22 BP BP BP BP BP Pulse Ox O2 Del Method 03/27/23 08:39 Nasal Cannula 03/27/23 08:00 Nasal Cannula 03/27/23 08:00 103/51 L 100 Room Air 03/27/23 04:00 104/40 L 97 Room Air 03/26/23 23:02 105/56 L 112/72 125/62 03/26/23 20:00 113/52 L 99 Room Air 03/26/23 18:32 Room Air 03/26/23 17:39 Room Air 03/26/23 17:15 Room Air 03/26/23 17:22 103/52 L 92 L Room Air 03/26/23 17:07 117/69 Room Air 03/26/23 16:01 106/52 L 99 Room Air 03/26/23 15:31 108/46 L 99 Room Air 03/26/23 13:53 137/101 H 98 Room Air O2 Flow Rate 03/27/23 08:39 2 03/27/23 08:00 2 03/27/23 08:00 03/27/23 04:00 03/26/23 23:02 03/26/23 20:00 03/26/23 18:32 03/26/23 17:39 03/26/23 17:15 03/26/23 17:22 03/26/23 17:07 03/26/23 16:01 03/26/23 15:31 03/26/23 13:53 Intake and Output 03/26/23 03/27/23 03/27/23 23:59 07:59 15:59 Intake Total 270 / 630 600 / 600 Output Total 100 / 550 450 / 450 0 / 450 Balance 170 / 80 150 / 150 0 / 150 Intake: Intake, Oral Amount 270 / 630 600 / 600 Output: Output, Urine Amount 100 / 550 450 / 450 0 / 450 Other: Number of Voids 0 Number of Unmeasured Voids 1 1 Number of Urine Attends/Diapers 1 Number of Bowel Movements 1 Weight 97.154 kg 96.365 kg Patient Weight 03/27/23 23:59 Weight 96.365 kg Laboratory Results - last 24 hr 03/26/23 13:50: WBC 7.6 D, RBC 2.98 L, Hgb 9.1 L, Hct 27.9 L, MCV 93.5, MCH 30.6, MCHC 32.7, RDW 15.6, Plt Count 104 L, MPV 10.7 H, Neut % (Auto) 63.0, Lymph % (Auto) 23.9, [place] % (Auto) 8.8, Eos % (Auto) 3.5, Baso % (Auto) 0.8, Neut # (Auto) 4.8, Lymph # (Auto) 1.8, [place] # (Auto) 0.7, Eos # (Auto) 0.3, Baso # (Auto) 0.1, PT 13.4 H, INR 1.26 H, Sodium 133 L, Potassium 3.5, Chloride 106, Carbon Dioxide 22, Anion Gap 8.5, BUN 28 H D, Creatinine 1.80 H D, Estimated Creat Clear 44, Estimated GFR 36 L, Est GFR ( Amer) 44 L D, Glucose 60 L, Calcium 7.6 L, Total Bilirubin 1.8 H, AST 71 H, ALT 44, Alkaline Phosphatase 101, Total Creatine Kinase 257 H D, NT-Pro-B Natriuret Pep 1220 H, Total Protein 6.0 L, Albumin 2.6 L, Globulin 3.4 H, Albumin/Globulin Ratio 0.8 L 03/26/23 14:30: Troponin I 0.03, TSH 3.33, Thyroxine (T4) 7.4 03/26/23 16:18: Urine Color Dark yellow, Urine Appearance Clear, Urine pH 5.5, Ur Specific [place] 1.020, Urine Protein 1+, Urine Glucose (UA) Trace, Urine Ketones Negative, Urine Blood Negative, Urine Nitrate Negative, Urine Bilirubin 1+ A, Urine Urobilinogen 2.0, Ur Leukocyte Esterase 2+ A, Urine RBC 3-5, Urine WBC 5-10, Ur Squamous Epith Cells 3-5, Urine Bacteria None 03/26/23 17:45: Troponin I 0.03 03/26/23 20:10: POC Glucose 129 H 03/26/23 20:20: Troponin I 0.03 03/27/23 05:56: WBC 6.4, RBC 2.85 L, Hgb 9.0 L, Hct 26.3 L, MCV 92.3, MCH 31.5 H, MCHC 34.1, RDW 15.8, Plt Count 82 L, MPV 9.6, Neut % (Auto) 71.4, Lymph % (Auto) 19.5, [place] % (Auto) 6.9, Eos % (Auto) 2.1, Baso % (Auto) 0.2, Neut # (Auto) 4.6, Lymph # (Auto) 1.2, [place] # (Auto) 0.4, Eos # (Auto) 0.1, Baso # (Auto) 0.0, Sodium 133 L, Potassium 3.5, Chloride 107, Carbon Dioxide 19 L, Anion Gap 10.5, BUN 30 H, Creatinine 2.10 H, Estimated Creat Clear 36, Estimated GFR 30 L, Est GFR ( Amer) 37 L, Glucose 51 L, Calcium 7.6 L, Magnesium 1.7, Total Bilirubin 1.9 H, AST 62 H, ALT 42, Alkaline Phosphatase 100, Total Protein 5.9 L, Albumin 2.6 L, Globulin 3.3 H, Albumin/Globulin Ratio 0.8 L 03/27/23 06:34: POC Glucose 85 I & O for Labs for Last 24 Hours: Intake & Output 12/04/23 12/05/23 12/06/23 12/07/23 23:59 23:59 23:59 23:59 Intake Total 270 / 630 600 / 600 Output Total 100 / 550 450 / 450 Balance 170 / 80 150 / 150 Weight 97.154 kg 96.365 kg Constitutional: Present no acute distress, obese, chronically ill appearing and cooperative Head: Present atraumatic ENT: Present normal exam Respiratory: Present normal respiratory effort; Absent rhonchi, wheezes or crackles Cardiac: Present Reg Rate and Rhythm GI: Present soft and normal bowel sounds; Absent distention or tenderness Extremities: Present normal inspection, full ROM and edema (3+ to knees) Skin: Present intact; Absent erythema Neuro: Present Grossly Intact, alert, awake and moves all extremities Assessment and Plan *Assessment and plan (1) Acute kidney injury: Status: Acute Category: Medical Code(s): N17.9 - Acute kidney failure, unspecified (2) ICAO (internal carotid artery occlusion): Status: Acute Qualifiers: Laterality: right Qualified Code(s): I65.21 - Occlusion and stenosis of right carotid artery Category: Medical Code(s): I65.29 - Occlusion and stenosis of unspecified carotid artery (3) Fall at home: Status: Acute Qualifiers: Encounter type: initial encounter Qualified Code(s): W19.XXXA - Unspecified fall, initial encounter; Y92.009 - Unspecified place in unspecified non-institutional (private) residence as the place of occurrence of the external cause Category: Medical Code(s): W19.XXXA - Unspecified fall, initial encounter; Y92.009 - Unspecified place in unspecified non-institutional (private) residence as the place of occurrence of the external cause (4) Afib: Status: Acute Qualifiers: Atrial fibrillation type: unspecified Qualified Code(s): I48.91 - Unspecified atrial fibrillation Category: Medical Code(s): I48.91 - Unspecified atrial fibrillation (5) Elevated brain natriuretic peptide (BNP) level: Status: Acute Category: Medical Code(s): R79.89 - Other specified abnormal findings of blood chemistry (6) Hypertension: Status: Acute Qualifiers: Hypertension type: unspecified Qualified Code(s): I10 - Essential (primary) hypertension Category: Medical Code(s): I10 - Essential (primary) hypertension (7) Diabetes mellitus: Status: Acute Qualifiers: Diabetes mellitus complication status: with other specified complication Diabetes mellitus mcc insulin use: with mcc use Diabetes mellitus type: type 2 Qualified Code(s): E11.69 - Type 2 diabetes mellitus with other specified complication; Z79.4 - refuse laborer (current) use of insulin Category: Medical Code(s): E11.9 - Type 2 diabetes mellitus without complications (8) CAD (coronary artery disease): Status: Acute Qualifiers: Associated angina: without angina Coronary Disease-Associated Artery/Lesion type: unspecified vessel or lesion type [place] vs. transplanted heart: [place] heart Qualified Code(s): I25.10 - Atherosclerotic heart disease of [place] coronary artery without angina pectoris Category: Medical Code(s): I25.10 - Atherosclerotic heart disease of [place] coronary artery without angina pectoris (9) Fracture of great toe of right foot: Status: Acute Qualifiers: Encounter type: sequela Fracture alignment: nondisplaced Fracture type: closed Phalanx: proximal Qualified Code(s): S92.414S - Nondisplaced fracture of proximal phalanx of right great toe, sequela Category: Medical Code(s): S92.401A - Displaced unspecified fracture of right great toe, initial encounter for closed fracture Plan 83-year-old male with PMHx of recent diagnose of afib started on eliquis, CHF, CAD, prior CABG, hypertension, diabetes with multiple falls at home, recently discharged from the hospital who is presenting also from home with recurrent falls. CT of the head was obtained and does not showed acute intracraneal process, CTA is conclusive for a mild stenosis of the carotid, along with the proximal and distal vertebral arteries. no acute ischemic changes seen. After discussion made with ER, we were agreed for readmission. Patient continues to require optimization of therapy. Cardiology consulted. Problems addressed as follows: - JASMINA: Creatinine increased this morning on labs to 2.1. BUN of 30. Repeat BMP for the afternoon, CBC, CMP, magnesium ordered for the morning. Making urine Continue gentle fluid rehydration. 1 L LR today. Fall at home/Generalized weakness PT OT consulted, working with patient during admission. Family adamant to take patient home at discharge. Will discharge home with home health. History of right-sided heart failure Paroxysmal A-fib Currently rate controlled A-fib. Continue Eliquis, renally dose 2.5 mg twice daily Received bisoprolol 5 mg this morning, decreased to 2.5 mg tomorrow as blood pressure still soft. Hold further diuretics and home ARB Cardiology consulted and assisting with care. Appreciate their recommendations. Discussed case this morning, medication adjustments per their recommendations. Orthostatic vital signs show no orthostasis. Echocardiogram 03/24: Normal LV systolic function, mildly dilated RV with mild reduction in RV systolic function. Mild TR. Patient finished Holter monitor yesterday, unofficial read shows PAF, official read is pending. Right mild stenosis of the ICA and vertebral arteries with Hx of recurrent fall: -Neck CTA shows calcified plaque at the right carotid bifurcation, mild stenosis of the proximal right ICA, mild stenosis of the distal right vertebral artery -Carotid ultrasound pending -Continue aspirin 81 mg p.o. daily and high-dose statin Diabetes -A1c elevated 8.3 last visit. Blood sugar low this morning with two thirds of his normal home medication. Discontinue short acting/long-acting combo insulin. -Initiate Lantus 15 units tonight. Sliding scale insulin with fingersticks ACHS. -Normal TSH noted, morning cortisol level pending -Avulsion fracture of the base of the 1st proximal phalanx. Seen by kennel operator last visit. Does not appear to be causing debility. Full weightbearing status. Continue to monitor. Eliquis 2.5 mg twice daily Full code Diabetic diet
--- NOTE | 2023-03-27 10:29 | CA_ITS ---
FINAL REPORT TECHNIQUE: Color Doppler, duplex Doppler and smith scale sonography of the bilateral neck vasculature was performed. Velocities were measured in the carotid arteries. Stenosis evaluation based on velocity criteria. CLINICAL HISTORY: NAYAN SEEN ON CTA NECK,HTN,CABG,DM COMPARISON: None FINDINGS: The peak systolic velocity of the right common carotid artery is 134 cm/sec and internal carotid artery 148 cm/sec. The diastolic velocity in the internal carotid artery is 21 cm/sec. The ICA/CCA ratio is 1.1. Visually, a small amount of plaque is seen. These findings are consistent with less than 50% stenosis. The external carotid artery is patent. The right vertebral artery is patent with antegrade flow. The peak systolic velocity of the left common carotid artery is 227 cm/sec and internal carotid artery 150 cm/sec. The diastolic velocity in the internal carotid artery is 18 cm/sec. The ICA/CCA ratio is 1.1. Visually, a small amount of plaque is seen. These findings are consistent with 50 to 69% stenosis. The external carotid artery is patent. The left vertebral artery is patent with antegrade flow. IMPRESSION: Less than 50% stenosis right carotid artery. 50 to 69% stenosis left carotid artery. Bilateral patent vertebral arteries. If indicated, CTA or MRA could further evaluate. Reviewed, Interpreted and Dictated by Jaziel Collins III, MD Transcribed by Bridgette Rodriguez Authenticated and [facility]
[2023-03-27] MEDS: humaLOG 100 UNITS/ML 3ML VIAL (SSI) SQ ×3 (10:33→20:41)
--- NOTE | 2023-03-27 10:35 | HMH.PTEV ---
Physical Therapy Evaluation Rehab PT IP Evaluation Start: 03/26/23 16:32 Freq: ONCE Status: Active Protocol: Document 03/27/23 10:22 LASHAE (Rec: 03/27/23 10:34 LASHAE [id number]) Subjective/History History History Pt is a 83 y/o male who reported to [facility] on 03/26/23, recently discharged from the hospital, presenting from home with recurrent falls. Per history & physical note, during last admission physical evaluation recommended short term rehab placement for continuation of the recovery and therapies. Family refused and decided to go home with HH instead. Yesterday morning he tripped and fell, slumping against the wall, while attempting to walk to the bathroom. They do report that he has been compliant with his Eliquis. Patient states that he did not lose consciousness. He denies any shortness of breath, difficulty breathing, cough, congestion, runny nose. States that he has otherwise been eating and drinking well with normal urine and stool output. Denies any melena. Denies any numbness, tingling, weakness in the upper or lower extremities. Subjective Subjective Pt reports he went home with his granddaughter following his most recent hospital admission earlier this week and fell while walking with a RW. Pt denies hitting his head or serious injuries from the fall. Pt reports he wants to go back home to his granddaughters house and states he refuses to go to rehab. Pt reports his family was assisting him with ADLS and iADLs at his granddaughters. Prior to living with his granddaughter, pt was living home alone and having difficulty taking care of himself. New diagnosis of cancer in past 12 No months? Rehab PT IP Eval Objective Appearance Patient Behavior Appropriate,Cooperative Patient Orientation Person,Place,Name,Birthday Difficulty following instructions none Speech Pattern Clear,Appropriate Ambulation Patient Able to Ambulate Yes Ambulation Observation IP General Gait Pattern Observation Wide Based Gait Ambulation Distance (feet) 15 Ambulation Assistive Device Standard Walker Ambulation Ability Contact Guard/Hand Hold Balance Ability to Arise Able, uses arms to help Sitting Balance Steady, safe Standing Balance Steady, wide stance Dynamic Sitting Balance Ability Good Dynamic Standing Balance Ability Fair Transfers Bed Transfer Ability Contact Guard/Hand Hold Chair Transfer Ability Contact Guard/Hand Hold Sit to Stand Bed Transfer Ability Contact Guard/Hand Hold Sit to Stand Chair Transfer Ability Contact Guard/Hand Hold Rehab PT IP prob,goals,plan Problems Date of Evaluation: 03/27/23 PT IP Problems Bed Mobility,Transfers,Gait, Balance,Self care,Safety Rehab Potential Rehab Potential Good Equipment Needs Assistive Devices Standard Walker,Rolling / Wheeled Walker Plan PT Intervention Plan Bed Mobility,Transfers,Gait, Balance,Self care,Safety, Therapeutic Exercise Other Intervention Plan 1-2x/day PT Plan Frequency Daily Duration LOS Discharge Goals Bed Transfer Ability Supervision/Stand by Sit to Stand Chair Transfer Ability Contact Guard/Hand Hold Ambulation Assistive Device Rolling Walker Discharge Plan PT Discharge Plan Pt will benefit from skilled PT while at [facility] and continue to benefit from skilled therapy at short term rehab once discharged and deemed medically stable by MD due to recurrent falls and weakness. The patient and family seem adamant about him returning home with granddaughter therefore if he continues to refuse placement, PT recommends continued home health therapy upon returning home. Without skilled therapy pt is at an increased risk for falls, fractures, wounds, further functional decline and increased burden of care. Eval Complexity Eval Charge Codes 82569 - Moderate Complexity PHYSICIAN CERTIFICATION: I certify the specified therapy services for David Martinez are required, authorized, and reviewed every 30 days.
--- NOTE | 2023-03-27 10:37 | HMH.PTEV ---
Physical Therapy Evaluation Rehab PT IP Evaluation Start: 03/26/23 16:32 Freq: ONCE Status: Active Protocol: Document 03/27/23 10:22 LASHAE (Rec: 03/27/23 10:34 LASHAE [id number]) Subjective/History History History Pt is a 83 y/o male who reported to [facility] on 03/26/23, recently discharged from the hospital, presenting from home with recurrent falls. Per history & physical note, during last admission physical evaluation recommended short term rehab placement for continuation of the recovery and therapies. Family refused and decided to go home with HH instead. Yesterday morning he tripped and fell, slumping against the wall, while attempting to walk to the bathroom. They do report that he has been compliant with his Eliquis. Patient states that he did not lose consciousness. He denies any shortness of breath, difficulty breathing, cough, congestion, runny nose. States that he has otherwise been eating and drinking well with normal urine and stool output. Denies any melena. Denies any numbness, tingling, weakness in the upper or lower extremities. Subjective Subjective Pt reports he went home with his granddaughter following his most recent hospital admission earlier this week and fell while walking with a RW. Pt denies hitting his head or serious injuries from the fall. Pt reports he wants to go back home to his granddaughters house and states he refuses to go to rehab. Pt reports his family was assisting him with ADLS and iADLs at his granddaughters. Prior to living with his granddaughter, pt was living home alone and having difficulty taking care of himself. New diagnosis of cancer in past 12 No months? Rehab PT IP Eval Objective Appearance Patient Behavior Appropriate,Cooperative Patient Orientation Person,Place,Name,Birthday Difficulty following instructions none Speech Pattern Clear,Appropriate Ambulation Patient Able to Ambulate Yes Ambulation Observation IP General Gait Pattern Observation Wide Based Gait Ambulation Distance (feet) 15 Ambulation Assistive Device Standard Walker Ambulation Ability Contact Guard/Hand Hold Balance Ability to Arise Able, uses arms to help Sitting Balance Steady, safe Standing Balance Steady, wide stance Dynamic Sitting Balance Ability Good Dynamic Standing Balance Ability Fair Transfers Bed Transfer Ability Contact Guard/Hand Hold Chair Transfer Ability Contact Guard/Hand Hold Sit to Stand Bed Transfer Ability Minimal x 1 (25% assist) Sit to Stand Chair Transfer Ability Contact Guard/Hand Hold Rehab PT IP prob,goals,plan Problems Date of Evaluation: 03/27/23 PT IP Problems Bed Mobility,Transfers,Gait, Balance,Self care,Safety Rehab Potential Rehab Potential Good Equipment Needs Assistive Devices Standard Walker,Rolling / Wheeled Walker Plan PT Intervention Plan Bed Mobility,Transfers,Gait, Balance,Self care,Safety, Therapeutic Exercise Other Intervention Plan 1-2x/day PT Plan Frequency Daily Duration LOS Discharge Goals Bed Transfer Ability Supervision/Stand by Sit to Stand Chair Transfer Ability Contact Guard/Hand Hold Ambulation Assistive Device Rolling Walker Ambulation Distance (feet) 30 Discharge Plan PT Discharge Plan Pt will benefit from skilled PT while at [facility] and continue to benefit from skilled therapy at short term rehab once discharged and deemed medically stable by MD due to recurrent falls and weakness. The patient and family seem adamant about him returning home with granddaughter therefore if he continues to refuse placement, PT recommends continued home health therapy upon returning home. Without skilled therapy pt is at an increased risk for falls, fractures, wounds, further functional decline and increased burden of care. Eval Complexity Eval Charge Codes 72638 - Moderate Complexity PHYSICIAN CERTIFICATION: I certify the specified therapy services for David Martinez are required, authorized, and reviewed every 30 days.
[2023-03-27 10:57] LABS: POC Glucose,Bedside 192 (70-110)
[2023-03-27 11:56] VITALS: PULSE 75
[2023-03-27 12:00] VITALS: PULSE 70
[2023-03-27] MEDS: CEFEPIME HCL 2 GM in 0.9 % SODIUM CHLORIDE 100 ML IV (13:14)
[2023-03-27 16:00] VITALS: BP 108/54; PULSE 60; PULSE 70; RESP 18; TEMP 36.6; O2SAT 95
[2023-03-27 16:57] LABS: POC Glucose,Bedside 265 (70-110)
--- NOTE | 2023-03-27 17:00 | PC.NURSE ---
A&OX4. TOLERATING RA WELL T/O SHIFT. PT HAS BEEN AMBULATORY IN ROOM WITH WALKER AND X1 ASSIST. HAS BEEN UP TO CHAIR AND BATHROOM. FAMILY REMAINS AT BEDSIDE. PT HAS HAD NO C/O THUS FAR THIS SHIFT. SEEPING NOTED TO LLE. DRESSINGS TO L KNEE AND L ELBOW CHANGED THIS SHIFT. PT FAMILY REQUESTED SOMETHING TO HELP TAKE PRESSURE OFF PT BOTTOM IN BED AND CHAIR. PRESSURE RELIEVING PAD AND MATRESS PROVIDED TO PT. RECEIVING 1L OF LR @ 75ML/HR. VSS.
[2023-03-27 18:40] LABS: Chloride 106 mmol/L (98-107); Potassium 3.7 mmoL/L (3.5-5.1); Sodium 132 mmol/L (136-145)
[2023-03-27 18:43] LABS: Anion Gap 8.7 mEq/L (5-15); Blood Urea Nitrogen 31 mg/dl (9-20); Calcium 7.9 mg/dl (8.4-10.2); Carbon Dioxide 21 mmol/L (22.0-30.0); Creatinine Clearance Estimated 37 mL/min (50-200); Estimated Glomerular Filt Rate 32 ml/min (>60); GFR (African American) 39 ML/MIN (>60); Glucose 252 mg/dl (74-100)
[2023-03-27 20:00] VITALS: BP 135/66; PULSE 69; PULSE 76; RESP 18; TEMP 36.9; O2SAT 99
[2023-03-27 20:22] LABS: POC Glucose,Bedside 263 (70-110)
[2023-03-27] MEDS: INSULIN GLARGINE 100 UNITS/ML 3ML FLEXPEN 15 UNIT SQ (20:42)
[2023-03-27] MEDS: PT OWN MED *PANTOPRAZOLE DR 40 MG TAB 1 EACH PO (20:43)
[2023-03-27] MEDS: SIMVASTATIN 40 MG 1 EACH PO (20:43)
[2023-03-28] VITALS: BP 134/77; PULSE 72; RESP 18; TEMP 36.6; O2SAT 99
[2023-03-28 00:15] VITALS: PULSE 75
[2023-03-28] MEDS: guaiFENesin 200MG/10ML SYRUP UDC 200 MG PO ×2 (00:41→08:08)
[2023-03-28] MEDS: CEFEPIME HCL 2 GM in 0.9 % SODIUM CHLORIDE 100 ML IV ×2 (01:24→13:02)
--- NOTE | 2023-03-28 03:12 | PC.NURSE ---
wounds to bilat LEs donis knee areas. Family says it is from falls and crawling on floor. no drainage from the right leg. Left lower leg and knee areas weeping. drsgs reinforced. Patient does not c/o pain. Has 2-3 + pitting edema BLEs. Family members x 2 at bedside.
[2023-03-28 04:00] VITALS: BP 121/65; PULSE 74; RESP 18; TEMP 36.4; O2SAT 99; BMI 33.6
[2023-03-28 04:37] VITALS: PULSE 75
[2023-03-28 05:16] LABS: POC Glucose,Bedside 265 (70-110)
[2023-03-28] MEDS: humaLOG 100 UNITS/ML 3ML VIAL (SSI) SQ ×2 (05:19→12:00)
[2023-03-28 07:34] LABS: Chloride 106 mmol/L (98-107)
[2023-03-28 07:35] LABS: Potassium 3.6 mmoL/L (3.5-5.1); Sodium 133 mmol/L (136-145)
[2023-03-28 07:37] LABS: Alanine Aminotransferase 38 U/L (12-78); Aspartate Amino Transferase 51 U/L (17-59); Blood Urea Nitrogen 30 mg/dl (9-20); Creatinine Clearance Estimated 44 mL/min (50-200); Estimated Glomerular Filt Rate 39 ml/min (>60); GFR (African American) 47 ML/MIN (>60)
[2023-03-28 07:38] LABS: Albumin Level 2.6 g/dl (3.5-5.0); Albumin/Globulin Ratio 0.8 (1.1-1.8); Alkaline Phosphatase 100 U/L (38-126); Anion Gap 8.6 mEq/L (5-15); Bilirubin,Total 1.9 mg/dl (0.2-1.3); Calcium 7.7 mg/dl (8.4-10.2); Carbon Dioxide 22 mmol/L (22.0-30.0); Globulin 3.3 g/dL (1.3-3.2); Glucose 214 mg/dl (74-100); Magnesium 1.7 mg/dl (1.6-2.3); Total Protein,Serum 5.9 g/dl (6.3-8.2)
[2023-03-28 07:43] LABS: Eosinophils # 0.2 K/mm3 (0.0-0.4); Eosinophils % 5.3 % (0.1-12.0); Lymphocytes # 1.2 K/mm3 (0.7-4.5); Lymphocytes % 26.3 % (10-50); Mean Corpuscular HGB Conc 33.4 g/dL (31.8-35.4); Mean Corpuscular Hemoglobin 30.8 pg (27.0-31.2); Mean Corpuscular Volume 92.3 fl (80-94); Mean Platelet Volume 10.5 fl (7.4-10.4); Monocytes # 0.5 K/mm3 (0.1-1.0); Monocytes % 10.5 % (1.7-9.3); Neutrophils # 2.6 K/mm3 (1.8-7.8); Platelet Count 89 K/mm3 (142-424); Red Blood Count 2.92 M/mm3 (4.60-6.20); Red Cell Distribution Width 15.6 % (11.5-17.5); White Blood Count 4.6 K/mm3 (4.8-10.8)
[2023-03-28 08:00] VITALS: BP 135/57; PULSE 73; PULSE 75; RESP 18; TEMP 37; O2SAT 98; O2SAT 99
[2023-03-28] MEDS: APIXABAN 5MG TABLET 2.5 MG PO (08:08)
[2023-03-28] MEDS: BISOPROLOL 5 MG 2.5 MG PO (08:09)
--- NOTE | 2023-03-28 08:49 | EXP.CARD.PN ---
Subjective Subjective Date: 03/28/23 Time: 08:00 Principal diagnosis: Generalized weakness, fall Interval history: Patient doing well this morning. Denies chest pain or shortness of breath. Lung sounds remain clear. Creatinine has improved to 1.7 after fluids. Pressure is stable at 135/57. Family is asking for patient to be discharged home today. Exam Data for Last 24 hours Vital signs and Labs for Last 24 Hours: Temp Pulse Resp BP Pulse Ox O2 Del Method O2 Flow Rate 98.6 F 73 18 135/57 L 99 Room Air 99 03/28/23 08:00 03/28/23 08:00 03/28/23 08:00 03/28/23 08:00 03/28/23 08:00 03/28/23 08:00 03/27/23 21:00 Laboratory Results - last 24 hr 03/27/23 10:31: POC Glucose 192 H 03/27/23 16:08: POC Glucose 265 H 03/27/23 18:15: Sodium 132 L, Potassium 3.7, Chloride 106, Carbon Dioxide 21 L, Anion Gap 8.7, BUN 31 H, Creatinine 2.00 H, Estimated Creat Clear 37, Estimated GFR 32 L, Est GFR ( Amer) 39 L, Glucose 252 H D, Calcium 7.9 L 03/27/23 20:01: POC Glucose 263 H 03/28/23 05:09: POC Glucose 265 H 03/28/23 06:42: WBC 4.6 L D, RBC 2.92 L, Hgb 9.0 L, Hct 27.0 L, MCV 92.3, MCH 30.8, MCHC 33.4, RDW 15.6, Plt Count 89 L, MPV 10.5 H, Neut % (Auto) 57.0, Lymph % (Auto) 26.3, [place] % (Auto) 10.5 H, Eos % (Auto) 5.3, Baso % (Auto) 1.0, Neut # (Auto) 2.6, Lymph # (Auto) 1.2, [place] # (Auto) 0.5, Eos # (Auto) 0.2, Baso # (Auto) 0.0, Sodium 133 L, Potassium 3.6, Chloride 106, Carbon Dioxide 22, Anion Gap 8.6, BUN 30 H, Creatinine 1.70 H, Estimated Creat Clear 44, Estimated GFR 39 L, Est GFR ( Amer) 47 L D, Glucose 214 H, Calcium 7.7 L, Magnesium 1.7, Total Bilirubin 1.9 H, AST 51, ALT 38, Alkaline Phosphatase 100, Total Protein 5.9 L, Albumin 2.6 L, Globulin 3.3 H, Albumin/Globulin Ratio 0.8 L I & O for Last 24 hours: Intake & Output 03/25/23 03/26/23 03/27/23 03/28/23 23:59 23:59 23:59 23:59 Intake Total 270 / 630 1320 / 2660 1440 / 1440 Output Total 100 / 550 1350 / 1350 200 / 200 Balance 170 / 80 -30 / 1310 1240 / 1240 Weight 214 lb 3 oz 212 lb 7.175 oz 214 lb 4.8 oz Constitutional Constitutional: no acute distress *Routine Respiratory Exam Respiratory: Present CTA bilaterally and symmetric chest movement *Routine Cardiovascular Exam Cardiovascular: Present Normal S1 and Normal S2 Comments: A-fib *Routine Abdominal Exam Abdominal: Present soft and normoactive bowel sounds; Absent tenderness *Routine Extremities Exam Extremities: Present full ROM and normal capillary refill; Absent edema *Routine Skin Exam Skin: Present intact, dry and warm Detailed Neck Exam: Thyroids Thyroid: Absent bruit Progress Note: A&P Assessment and plan (1) Acute kidney injury: Status: Resolved (2) ICAO (internal carotid artery occlusion): Status: Resolved (3) Fall at home: Status: Acute (4) Afib: Status: Acute (5) Elevated brain natriuretic peptide (BNP) level: Status: Acute (6) Hypertension: Status: Acute (7) Diabetes mellitus: Status: Acute (8) CAD (coronary artery disease): Status: Acute (9) Fracture of great toe of right foot: Status: Acute Assessment and Plan Assessment and Plan for All Diagnoses:: Fall at home/Generalized weakness JASMINA Recent Rhabdomyolysis Hypoglycemia -Creatinine 2.10 -CK improved from last admission -Continue gentle fluids -Chest x-ray shows a left base atelectasis or pneumonia -Orthostatic vital signs negative -Hypoglycemia noted this morning, primary service is adjusting meds -Normal TSH noted, morning cortisol level pending 03/28/2023: Blood pressure stable at 135/57. Patient denies dizziness. Reports overall is feeling better PAFCHadsvasc score 5 -Currently afib rate controlled -Continue Eliquis renal dose 2.5 mg p.o. twice daily -Decrease bisoprolol to 2.5 mg p.o. daily due to weakness -Echocardiogram 03/24: Normal LV systolic function, mildly dilated RV with mild reduction in RV systolic function. Mild TR. -Patient finished Holter monitor yesterday, unofficial read shows PAF, official read is pending. Hx of Right sided heart Failure -Patient currently denies any chest pain or shortness of breath. Mild bilateral lower extremity edema is noted. -Given current JASMINA that worsened after Bumex and generalized weakness would avoid heavy diuresis at this time. Recommend compression stockings for lower extremity edema. Initiate diuretics if patient becomes short of breath. Right mild stenosis of the ICA and vertebral arteries with Hx of recurrent fall: -Neck CTA shows calcified plaque at the right carotid bifurcation, mild stenosis of the proximal right ICA, mild stenosis of the distal right vertebral artery -Carotid ultrasound: Less than 50% stenosis right carotid artery. 50 to 69% stenosis of the left carotid artery. Bilateral patent vertebral arteries. -Continue aspirin 81 mg p.o. daily and high-dose statin Coronary artery disease History of CABG Acute myocardial injury -Troponin negative on admisison -EKG is negative for acute ischemic changes -Recommend outpatient stress testing to further evaluate given patient denies symptoms of chest pain or shortness of breath currently. CV summary 03/27/2023: Patient's family is asking to take patient home today. Patient reports overall he is feeling better. Vital signs remained stable with a blood pressure of 135/57. Creatinine has improved to 1.7 with gentle fluids. If primary service decides to send patient home today advised to continue to hold losartan/hydrochlorothiazide. Continue bisoprolol at reduced dose of 2.5 mg p.o. daily. Please have patient follow-up in cardiology clinic for reevaluation next week.
--- NOTE | 2023-03-28 11:35 | SW/DCPLANNER ---
Patient is currently established / [facility]. I will fax updated patient information to resume home health services. The plan for this patient is to discharge home today.
[2023-03-28 11:49] VITALS: BP 127/70; PULSE 75; RESP 18; TEMP 36.7; O2SAT 98
[2023-03-28 11:57] LABS: POC Glucose,Bedside 282 (70-110)
--- NOTE | 2023-03-28 13:04 | EXP.DC.SUM ---
General Admission date:: 03/26/23 Discharge date: 03/28/23 HPI HPI HPI: This is a 83-year-old male with PMHx of recent diagnose of afib started on eliquis, CHF, CAD, prior CABG, hypertension, diabetes with multiple falls at home, recently discharged from the hospital who is presenting also from home with recurrent falls. History was obatained from patient and POA at bedside. during last admission physical evaluation recommended short term rehab placement for continuation of the recovery and therapies. Family refused and decided to go home with HH instead. Yesterday morning he tripped and fell, slumping against the wall, while attempting to walk to the bathroom. They do report that he has been compliant with his Eliquis. Patient states that he did not lose consciousness. He denies any shortness of breath, difficulty breathing, cough, congestion, runny nose. States that he has otherwise been eating and drinking well with normal urine and stool output. Denies any melena. Denies any numbness, tingling, weakness in the upper or lower extremities. Admitted. Hospital Course Hospital Course Hospital Course: 83-year-old male with PMHx of recent diagnose of afib started on eliquis, CHF, CAD, prior CABG, hypertension, diabetes with multiple falls at home, recently discharged from the hospital who is presenting also from home with recurrent falls. CT of the head was obtained and does not showed acute intracraneal process, CTA is conclusive for a mild stenosis of the carotid, along with the proximal and distal vertebral arteries. no acute ischemic changes seen. After discussion made with ER, we were agreed for readmission. Patient initially diuresed given significant edema and elevated BNP, kidney function worsened however. Transition to course to gentle rehydration. Showing improvement in kidney function on day of discharge. Patient still total body volume overloaded, appears to be intravascularly deplete however. Family requesting to take patient home to continue care at home. Will resume home health. High concern for readmission, have expressed this concern multiple times to family. Still requesting to go home and resume home health. Problems addressed as follows: - JASMINA: Creatinine elevated on admission, baseline approximately 1.1-1.2. 1.7 on day of discharge. Ordered repeat BMP for Friday. Responded well to gentle rehydration. Continue p.o. hydration. Holding diuretics. Fall at home/Generalized weakness PT/OT consulted, working with patient during admission. PT recommended placement at discharge for skilled rehab. Extensive discussion with family from both therapy and admitting provider. Family adamant to take patient home at discharge. Will discharge home with home health. History of right-sided heart failure Paroxysmal A-fib Currently rate controlled A-fib. Continue Eliquis, resume full dose at discharge given improving kidney function. Cardiology was consulted and assisting with care. Slight medication adjustments with continuation of bisoprolol, decreased 2.5 mg daily. Holding blood pressure medication as blood pressure was soft on admission and as an outpatient. Recommend follow-up with cardiology as an outpatient in the next 1 to 2 weeks. Orthostatic vital signs during admission were normal with no signs of orthostasis. Echocardiogram 03/24: Normal LV systolic function, mildly dilated RV with mild reduction in RV systolic function. Mild TR. Patient finished Holter monitor yesterday, unofficial read shows PAF, official read is pending. 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 Carotid ultrasound obtained. Less than 50% stenosis right carotid artery; 50 to 69% stenosis left carotid artery. Bilateral patent vertebral arteries. Loosen goals on blood pressure control. Blood pressure goal less than 140/90. Diabetes -A1c elevated 8.3 last visit. Blood sugar low During admission after resuming home regimen. Recommend discontinuing his combo insulin. Transition to insulin glargine once daily 25 units nightly. Prescription provided. -Normal TSH noted, morning cortisol level pending -Avulsion fracture of the base of the 1st proximal phalanx. Seen by director dance last visit. Does not appear to be causing debility. Full weightbearing status. Continue to monitor. Patient is stable for discharge. High concern expressed for readmission and concern that patient's level of care needs are higher than what family can provide. Family adamant however to take patient home. At this time patient's medications have been optimized. Recommend close follow-up as an outpatient with cardiology and PCP. Spent 35 minutes in discharge counseling, mentation, discussion with social work/therapy/cardiology, chart review, and direct care with patient. Exam Data for Last 24 hours Vital signs and Labs for Last 24 Hours: Temp Pulse Resp BP Pulse Ox O2 Del Method O2 Flow Rate 98.1 F 75 18 127/70 98 Room Air 99 03/28/23 11:49 03/28/23 11:49 03/28/23 11:49 03/28/23 11:49 03/28/23 11:49 03/28/23 11:49 03/27/23 21:00 Laboratory Results - last 24 hr 03/27/23 16:08: POC Glucose 265 H 03/27/23 18:15: Sodium 132 L, Potassium 3.7, Chloride 106, Carbon Dioxide 21 L, Anion Gap 8.7, BUN 31 H, Creatinine 2.00 H, Estimated Creat Clear 37, Estimated GFR 32 L, Est GFR ( Amer) 39 L, Glucose 252 H D, Calcium 7.9 L 03/27/23 20:01: POC Glucose 263 H 03/28/23 05:09: POC Glucose 265 H 03/28/23 06:42: WBC 4.6 L D, RBC 2.92 L, Hgb 9.0 L, Hct 27.0 L, MCV 92.3, MCH 30.8, MCHC 33.4, RDW 15.6, Plt Count 89 L, MPV 10.5 H, Neut % (Auto) 57.0, Lymph % (Auto) 26.3, [place] % (Auto) 10.5 H, Eos % (Auto) 5.3, Baso % (Auto) 1.0, Neut # (Auto) 2.6, Lymph # (Auto) 1.2, [place] # (Auto) 0.5, Eos # (Auto) 0.2, Baso # (Auto) 0.0, Sodium 133 L, Potassium 3.6, Chloride 106, Carbon Dioxide 22, Anion Gap 8.6, BUN 30 H, Creatinine 1.70 H, Estimated Creat Clear 44, Estimated GFR 39 L, Est GFR ( Amer) 47 L D, Glucose 214 H, Calcium 7.7 L, Magnesium 1.7, Total Bilirubin 1.9 H, AST 51, ALT 38, Alkaline Phosphatase 100, Total Protein 5.9 L, Albumin 2.6 L, Globulin 3.3 H, Albumin/Globulin Ratio 0.8 L 03/28/23 11:45: POC Glucose 282 H I & O for Last 24 hours: Intake & Output 12/0503/26/23 03/27/23 03/28/23 23:59 23:59 23:59 23:59 Intake Total 270 / 630 1320 / 2660 1680 / 1680 Output Total 100 / 550 1350 / 1350 675 / 675 Balance 170 / 80 -30 / 1310 1005 / 1005 Weight 97.154 kg 96.365 kg 97.205 kg Constitutional Constitutional: no acute distress, obese, chronically ill appearing and cooperative *Routine HEENT Exam Head: Present normocephalic Eye: Present EOMI and PERRL ENT: Present mucous membranes moist *Routine Neck Exam Neck: Present supple; Absent lymphadenopathy Routine Chest/Breast/Axilla Exam Chest wall: Absent tenderness Comments: Well-healed sternotomy scar *Routine Respiratory Exam Respiratory: Present CTA bilaterally; Absent rhonchi, wheezes or crackles *Routine Cardiovascular Exam Cardiovascular: Present irregularly irregular *Routine Abdominal Exam Abdominal: Present soft and normoactive bowel sounds; Absent tenderness *Routine Extremities Exam Extremities: Present edema (3+ to knees); Absent cyanosis or clubbing Comments: wound left lower leg from edema and blisters, redressed on day of discharge *Routine Skin Exam Skin: Present warm; Absent rash *Routine Neurological Exam Neurological: Present alert and moving all extremities; Absent altered mental status Comments: Oriented to self and place Results Data Completed and Pending Labs on day of discharge: Labs from last 24 hours 03/28/23 03/28/23 03/28/23 11:45 06:42 05:09 WBC 4.6 L D RBC 2.92 L Hgb 9.0 L Hct 27.0 L MCV 92.3 MCH 30.8 MCHC 33.4 RDW 15.6 Plt Count 89 L MPV 10.5 H Neut % (Auto) 57.0 Lymph % (Auto) 26.3 [place] % (Auto) 10.5 H Eos % (Auto) 5.3 Baso % (Auto) 1.0 Neut # (Auto) 2.6 Lymph # (Auto) 1.2 [place] # (Auto) 0.5 Eos # (Auto) 0.2 Baso # (Auto) 0.0 Sodium 133 L Potassium 3.6 Chloride 106 Carbon Dioxide 22 Anion Gap 8.6 BUN 30 H Creatinine 1.70 H Estimated Creat Clear 44 Estimated GFR 39 L Est GFR ( Amer) 47 L D Glucose 214 H POC Glucose 282 H 265 H Calcium 7.7 L Magnesium 1.7 Total Bilirubin 1.9 H AST 51 ALT 38 Alkaline Phosphatase 100 Total Protein 5.9 L Albumin 2.6 L Globulin 3.3 H Albumin/Globulin Ratio 0.8 L 03/27/23 03/27/23 03/27/23 20:01 18:15 16:08 WBC RBC Hgb Hct MCV MCH MCHC RDW Plt Count MPV Neut % (Auto) Lymph % (Auto) [place] % (Auto) Eos % (Auto) Baso % (Auto) Neut # (Auto) Lymph # (Auto) [place] # (Auto) Eos # (Auto) Baso # (Auto) Sodium 132 L Potassium 3.7 Chloride 106 Carbon Dioxide 21 L Anion Gap 8.7 BUN 31 H Creatinine 2.00 H Estimated Creat Clear 37 Estimated GFR 32 L Est GFR ( Amer) 39 L Glucose 252 H D POC Glucose 263 H 265 H Calcium 7.9 L Magnesium Total Bilirubin AST ALT Alkaline Phosphatase Total Protein Albumin Globulin Albumin/Globulin Ratio DS: Diagnosis Discharge Diagnosis (1) Acute kidney injury: Status: Resolved Code(s): N17.9 - Acute kidney failure, unspecified (2) ICAO (internal carotid artery occlusion): Status: Resolved Code(s): I65.29 - Occlusion and stenosis of unspecified carotid artery Qualifiers: Laterality: right Qualified Code(s): I65.21 - Occlusion and stenosis of right carotid artery (3) Fall at home: Status: Acute Code(s): W19.XXXA - Unspecified fall, initial encounter; Y92.009 - Unspecified place in unspecified non-institutional (private) residence as the place of occurrence of the external cause Qualifiers: Encounter type: initial encounter Qualified Code(s): W19.XXXA - Unspecified fall, initial encounter; Y92.009 - Unspecified place in unspecified non-institutional (private) residence as the place of occurrence of the external cause (4) Afib: Status: Acute Code(s): I48.91 - Unspecified atrial fibrillation Qualifiers: Atrial fibrillation type: unspecified Qualified Code(s): I48.91 - Unspecified atrial fibrillation (5) Elevated brain natriuretic peptide (BNP) level: Status: Acute Code(s): R79.89 - Other specified abnormal findings of blood chemistry (6) Hypertension: Status: Acute Code(s): I10 - Essential (primary) hypertension Qualifiers: Hypertension type: unspecified Qualified Code(s): I10 - Essential (primary) hypertension (7) Diabetes mellitus: Status: Acute Code(s): E11.9 - Type 2 diabetes mellitus without complications Qualifiers: Diabetes mellitus complication status: with other specified complication Diabetes mellitus ocean transportation intermediary insulin use: with shelter use Diabetes mellitus type: type 2 Qualified Code(s): E11.69 - Type 2 diabetes mellitus with other specified complication; Z79.4 - penitentiary (current) use of insulin (8) CAD (coronary artery disease): Status: Acute Code(s): I25.10 - Atherosclerotic heart disease of [place] coronary artery without angina pectoris Qualifiers: Associated angina: without angina Coronary Disease-Associated Artery/Lesion type: unspecified vessel or lesion type [place] vs. transplanted heart: [place] heart Qualified Code(s): I25.10 - Atherosclerotic heart disease of [place] coronary artery without angina pectoris (9) Fracture of great toe of right foot: Status: Acute Code(s): S92.401A - Displaced unspecified fracture of right great toe, initial encounter for closed fracture Qualifiers: Encounter type: sequela Fracture alignment: nondisplaced Fracture type: closed Phalanx: proximal Qualified Code(s): S92.414S - Nondisplaced fracture of proximal phalanx of right great toe, sequela Meds Home Medications and Allergies Home Medications Medication Instructions Recorded Confirmed Type metformin 1,000 mg tablet 1,000 mg PO BID Diabetes 03/21/23 03/26/23 History potassium chloride 20 mEq 20 meq PO DAILY Supplement 03/21/23 03/26/23 History tablet,extended release(part/cryst) simvastatin 40 mg tablet 40 mg PO HS Cholesterol 03/21/23 03/26/23 History apixaban 5 mg tablet (Eliquis) 5 mg PO BID 30 days #60 tabs 03/24/23 03/26/23 Rx aspirin 81 mg chewable tablet 81 mg PO DAILY 30 days #30 tabs 03/24/23 03/26/23 Rx pantoprazole 40 mg tablet,delayed 40 mg PO HS 30 days #30 tabs 03/24/23 03/26/23 Rx release [place]'s wort 300 mg capsule 300 mg PO DAILY Supplement 03/26/23 03/27/23 History hxemgleypfxc-ejphkkdm-wayqqk tablet 1 tab PO DAILY Supplement 03/26/23 03/27/23 History vitamin B complex 1 tab PO DAILY Supplement 03/26/23 03/27/23 History bisoprolol fumarate 5 mg tablet 2.5 mg PO DAILY 30 days #15 tabs 03/28/23 Rx cefdinir 300 mg capsule 300 mg PO BID 3 days #6 caps 03/28/23 Rx insulin glargine 100 unit/mL (3 25 unit (0.25 mL) SQ HS 30 days 03/28/23 Rx mL) subcutaneous pen (Lantus #7.5 mL Solostar U-100 Insulin) New Prescriptions to Start Prescriptions: bisoprolol fumarate Alin Newman cefdinir Alin Newman insulin glargine [Lantus Solostar U-100 Insulin] Alin Newman Allergies Allergy/AdvReac Type Severity Reaction Status Date / Time codeine Allergy Verified 03/21/23 20:34 Discharge Plan Disposition Patient Disposition: Home Health Service Condition: Undetermined Discharge Order Discharge Orders: Discharge Order (Routine); Ordered 03/28/23 Ordered By: Alin Newman Follow up Plan Follow up with: Ericka Goodrich APRN [Primary Care Provider] - 04/29/23 10:45 am Leonid Kendrick MD [Staff Physician] - 04/02/23 9:00 am Prescriptions/Medication Reconciliation: New bisoprolol fumarate 5 mg Tablet 2.5 mg PO DAILY 30 Days Qty: 15 0RF insulin glargine [Lantus Solostar U-100 Insulin] 100 unit/mL (3 mL) Insulin Pen 25 unit SQ HS 30 Days Qty: 7.5 0RF cefdinir 300 mg capsule 300 mg PO BID 3 Days Qty: 6 0RF Continued simvastatin 40 mg tablet 40 mg PO HS potassium chloride 20 mEq tablet,ER particles/crystals 20 meq PO DAILY metformin 1,000 mg tablet 1,000 mg PO BID pantoprazole 40 mg Tablet,Delayed Release (Dr/Ec) 40 mg PO HS 30 Days Qty: 30 0RF aspirin 81 mg Tablet,Chewable 81 mg PO DAILY 30 Days Qty: 30 0RF Eliquis 5 mg Tablet 5 mg PO BID 30 Days Qty: 60 0RF vitamin B complex Tablet 1 tab PO DAILY [place]'s wort 300 mg Capsule 300 mg PO DAILY fkzqwofpyxkv-menyjino-xptiha Tablet 1 tab PO DAILY Discontinued losartan-hydrochlorothiazide 50-12.5 mg tablet 1 tab PO DAILY bisoprolol fumarate 5 mg Tablet 5 mg PO DAILY 30 Days Qty: 30 0RF Novolin 70/30 U-100 Insulin 100 unit/mL (70-30) suspension 60 unit SQ BID 30 Days Qty: 0 0RF Other Ambulatory Orders: Basic Metabolic Panel (Routine) Timeframe: 2 Days Facility: [facility] - Location: Laboratory Ordered By: Alin Newman Problem Reconciliation Problems Reviewed?: Yes Patient Discharge Instructions ACTIVITY: Continue current activity DIET: continue same diet Patient Instructions: DI for Heart Failure, How to Prevent Falls, DI for Acute Kidney Injury Providers Primary Care Provider: Ericka Goodrich Admit Provider: Alin Newman Attending Provider: Alin Newman
--- NOTE | 2023-03-28 13:46 | HMH.PHAINT1 ---
Pharmacy Intervention Comments: DISCHARGE MEDICATION COUNSELING PROVIDED. DISCUSSED STOPPING LOSARTAN/HCTZ, NOVOLIN, AND BISOPROLOL 5 MG AND STARTING BISOPROLOL 2.5 MG DAILY. START CEFDINIR (ANTIBIOTIC, TWICE DAILY, START TONIGHT, TAKE WITH FOOD, N/V/D POSSIBLE) AND LANTUS (LONG ACTING INSULIN, TAKE AT BEDTIME, WATCH FOR SIGNS/SYMPTOMS OF LOW BLOOD SUGAR). PATIENT'S DAUGHTER VERBALIZED NO QUESTIONS AT THIS TIME.
--- NOTE | 2023-03-30 16:29 | PC.NURSE ---
urine culture showed mixed urogenital carl, pt given ceftriaxone during admission, dc with cefdinir, no further action per
--- NOTE | 2023-03-31 16:45 | CARE MANAGER ---
Unsuccessfully attempted to call patient regarding recent discharge but the number we have in the system is a wrong number. No other numbers available.
== END 2023-03-28 14:53 | disposition home health service (06) ==
LOC: ER 14:02 → 2ND 16:46
PROVIDERS: Nurse Practitioner; Admitting Provider Internal Medicine Adolescent Medicine; Emergency Provider Emergency Medicine; PCP Nurse Practitioner; Visit Provider Internal Medicine Adolescent Medicine
DX: N17.9 Acute kidney failure, unspecified (principal); I65.21 Occlusion and stenosis of right carotid artery; W19.XXXA Unspecified fall, initial encounter; Y92.009 Unspecified place in unspecified non-institutional (private) residence as the place of occurrence of the external cause; I48.91 Unspecified atrial fibrillation; Z79.4 Long term (current) use of insulin; I25.10 Atherosclerotic heart disease of native coronary artery without angina pectoris; S92.414 Nondisplaced fracture of proximal phalanx of right great toe; I50.9 Heart failure, unspecified; I11.0 Hypertensive heart disease with heart failure; Z86.73 Personal history of transient ischemic attack (TIA), and cerebral infarction without residual deficits; E78.5 Hyperlipidemia, unspecified; E11.649 Type 2 diabetes mellitus with hypoglycemia without coma; I5A Non-ischemic myocardial injury (non-traumatic)
CPT/HCPCS: 36415; 70450; 70496; 70498; 71045; 72125; 80048; 80053; 81001; 82533; 82550; 82962; 83735; 83880; 84436; 84443; 84484; 85025; 85610; 87086; 93005; 93880; 97116; 97162; 97166; 97530; 97535; 99285; G0378; J0692; Q9967